=== PATIENT | male | born 1935 | race Caucasian/White ===

== ENCOUNTER 2022-09-11 14:30 | Outpatient (RCR) | payer MEDICARE, OTHER, SELFPAY ==
--- NOTE | 2022-06-12 17:48 | PT.OPEX ---
PT [place] Outpatient Eval PT [facility] Outpatient Eval Start: 06/12/22 13:10 Freq: Status: Active Protocol: Document 06/12/22 13:10 RAFA (Rec: 06/12/22 17:42 [facility] [email or web address]) E-signed By Autumn Reynolds PT Physical Therapy Outpatient Evaluation Insurance Information Insurance Name [employer],Medicare B Insurance Information/Comments [employer] Medical Diagnosis CHRONIC LEFT KNEE PAIN Treating Diagnosis KNEE PAIN UNSTEADY ON FEET GAIT ABNORMALITY FALLS Referring MD LYNN Subjective Subjective I'M NOT SURE WHY I'M HERE BUT MY KNEE MYRON SYED SOME TIMES. PATIENT INITIALLY REPORTS A FALL 6 MONTHS AGO BUT, FURTHER IN THE EVAL, HE REPORTED FALLING LAST WEEK. PATIENT IS A POOR HISTORIAN WITH NOTABLE MEMORY CHALLENGES BOTH IMMEDIATE AND SHORT TERM . Pain Comments 0-06/22 Date of Last Physician Visit 05/18/12 Current Work Status Retired Occupation RETIRED [employer] Preferred Name LEAH Precautions Therapy Limitations/Systems Review Cognition,Hearing Objective Other/Pertinent Objective GAIT/FUNCTIONAL MOBILITY Single leg stance: RIGHT AND LEFT UNABLE Squat: UNABLE D/T BALANCE KNEE ROM Flexion: WFL'S Extension: WFL'S HIP ROM : WFL'S LLE MMT: Hip flexion: L 4-/5 Hip abduction: L 3+ /5 Hip extension: L 4-/5 Knee flexion: L 4/5 Knee extension: L 4/5 SPECIAL TEST Anterior drawer: (-) Shade test: (-) Posterior Drawer: (-) Valgus Test: (-) Varus Test: (-) Joint line tenderness: LEFT MEDIAL>LATERAL Ramón test: (-) hyper flexion test: (-) Thessaly test: (+) Lobato Compression: (+) LIZANDRO test: (+) TX: SEATED HEEL RAISE/TOE RAISE X 15 SEATED KNEE EXT R/L X 10 SEATED MARCHING X 10 SIT TO STAND X 10 Functional Test Performed & Score TUG 19.4 SEC MoCA 1230 TINETTI 8/20 Assessment Assessment/Impression 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 HE IS A POOR HISTORIAN OF HIS OWN MEDICAL HISTORY AND NOTABLE COGNITIVE CHALLENGES WITH BOTH IMMEDIATE AND SHORT TERM MEMORY. PATIENT LIVES IN A TWO STORY HOME ALONE WITH 1 STEP TO ENTER AND ALL HIS NEEDS MET ON MAIN LEVEL. HE REPORTS TO CHILDREN LIVING NEAR TO HELP HIM WELL MEALS ON WHEELS . HE HAS ONE GRAB BAR NEAR HIS TUB SHOWER AND A SHOWER STOOL . HE WOULD BENEFIT FROM A GRAB BAR INSIDE THE SHOWER AND SBA /CGA WHEN STEPPING IN/OUT WELL DURING D/T HIS SIGNIFICANT RISK FOR FALLS WELL COGNITIVE CHALLENGES NOTED TODAY. HE DEMONSTRATES FUNCTIONAL STRENGTH AND ENDURANCE DESPITE HIS REPORTS OF COPD BUT IMMEDIATELY AND VISIBLES TREMBLES WHEN NOT ASSISTED BY HIS FWW. PATIENT REPORTS USING SPC ~6MO AGO BUT A FALL HELPED HIM TRANSITION TO THE FWW. HE DEMONSTRATES A HIGH RISK FOR FALLS EVIDENCED BY 12/10 ON THE TINETTI BALANCE AND MOBILITY TEST, 19.4 ON THE TUG AND COGNITIVE TESTING INDICATING SEVERE IMPAIRMENT SCORING 12/ 30 ON THE MoCA. ADDITONALLY, HE DEMONSTRATES 4/5 MMT BOTH LEFT HIP AND KNEE WITH ROM WFL 'S BOTH HIP AND KNEE. HE REPEATED HIMSELF THROUGHOUT THE SESSION AND REQUIRING SIMPLE, ONE STEP COMMANDS FOR DIRECTIONS. PATIENT WOULD BENEFIT FROM SKILLED PHYSICAL THERAPY TO ADDRESS THE AFORMENTION DEFICITS THROUGH FUNCTIONAL BALANCE TRAINING, GT, STRENGTHENING AND FLEXIBILITY TRAINING. PATIENT WILL UNDOUBTEDLY REQUIRING LONGER DURATION D/T COGNITIVE CHALLENGES AND WOULD MOST CERTAINLY BENEFIT FROM OVERSIGHT OF HIS ADL'S/IADL'S ALIKE D/T HIS EMINENT RISK FOR FALLS AND COGNITIVE DEFICITS . PATIENT VERBALIZED UNDERSTANDING TO ALL SKILLED INSTRUCTION AND IN AGREEMENT WITH POC AND FREQ Primary Functional Limitations TRANSFERS BALANCE BLE STRENGTH COGNITION SAFETY AWARENESS GAIT ABNORMALITY Plan of Care Rehabilitation Potential Good Rehabilitation Potential Comments PATIENT DEMONSTRATES COGNITIVE CHALLENGES AND WILL NEED ADDITIONAL TIME WITH SIMPLE COMMANDS TO BE SUCCESSFUL Physical Therapy Goals ST. PATIENT WILL IMPROVE HIS TUG FROM 19.4 TO 15.4 IN 4 WEEKS 2. PATIENT WILL AMB 1000FT TO ALLOW LIMITED COMMUNITY AMB IN ORDER TO SAFELY GROCERY SHOP AND PARTICPATE IN FAMILY CENTERED EVENTS IN 4 WEEKS 3. PATIENT WILL BE INDPENDENT WITH HEP IN 4WEEKS LT. PATIENT WILL IMPROVE IS TINETTI FROM 12/02 TO 18 IN 8 WEEKS 2. PATIENT WILL DEMONSTRATE AND VERBALIZE GOOD FALL PREVENTION Coordination/Communication With Referral Source Treatment Plan/Direct Interventions Gait Training,Manual Therapy, Therapeutic Activities, Therapeutic Exercises Frequency/Duration 2W8 Patient Will Be Discharged From Therapy Independent w/HEP Discharge Plan Comments PATIENT WILL BE DISCHARGED TO SELF AND CARE OF FAMILY WHEN GOALS MET OR MAX POTENTIAL ACHIEVED. Evaluation Billing Untimed Code Treatment Minutes 30 PT Eval No Charge No Complexity Moderate Certification Information Initial Certification Date 06/12/22 Ending Certification Date 09/04/22 Provider Signature Shows Agreement With POC & Medical Necessity Physician Signature & Date Requested Please Sign/Date Here Physician Comment/Change : Physician NPI Number #
--- NOTE | 2022-09-11 16:28 | PT.OPDNX ---
PT [facility] Out[facility] Daily Note PT [facility] Outpatient Daily Note Start: 06/12/22 13:10 Freq: Status: Active Protocol: Document 09/11/22 15:49 RAFA (Rec: 09/11/22 16:25 RAFA [email or web address]) E-signed By Autumn Reynolds, PT PT OP Daily Progress Note Visit Information Note Type Discharge Note Visit Number [id number] Insurance Information Insurance Name [employer],Medicare B Insurance Information/Comments [employer] Medical Diagnosis CHRONIC LEFT KNEE PAIN Treating Diagnosis KNEE PAIN UNSTEADY ON FEET GAIT ABNORMALITY FALLS Referring MD LYNN Subjective Subjective PATIENT RETURNS TODAY WITH NO NEW COMPLAINTS STATING, I'M A LITTLE STIFF TODAY. HE DENIES ANY SLIPS, TRIPS, OR FALLS. Pain Comments 0/10 Preferred Name LEAH Precautions Treatment Precautions/Contraindications PATIENT HAS UNDIAGNOSED COGNITIVE CHALLENGES PLEASE SPEAK SLOWLY AND ONE STEP COMMANDS. Home Exercise Home Exercise Comments PATIENT ENCOURAGED TO PERFORM DAILY WITH WRITTEN HANDOUT PROVIDED Objective Other/Pertinent Objective GAIT/FUNCTIONAL MOBILITY Single leg stance: RIGHT AND LEFT UNABLE Squat: UNABLE D/T BALANCE KNEE ROM Flexion: WFL'S Extension: WFL'S HIP ROM : WFL'S LLE MMT: Hip flexion: L 4-/5 Hip abduction: L 3+ /5 Hip extension: L 4-/5 Knee flexion: L 4/5 Knee extension: L 4/5 SPECIAL TEST Anterior drawer: (-) Shade test: (-) Posterior Drawer: (-) Valgus Test: (-) Varus Test: (-) Joint line tenderness: LEFT MEDIAL>LATERAL Ramón test: (-) hyper flexion test: (-) Thessaly test: (+) Lobato Compression: (+) LIZANDRO test: (+) Functional Test Performed & Score TUG 19.4 SEC MoCA 12/30 TINETTI 8/20 Patient Instructed in Risks/Benefits Yes Therapeutic Exercise Therapeutic Exercise Minutes (minutes) 30 Therapeutic Exercise: To Restore NUSTEP X 5MIN Functional Status TB ROW (GREEN) X 15 TB S'EXT (GREEN) X 15 STS FROM BENCH X 10 W/UE FROM SURFACE STDG BHR X 15 STDG HIP ABD R/L X 15 STDG MARCHING X 10 Gait & Stair Training Gait Training/Stairs Minutes (minutes) 10 Gait & Stair Training Comments GT WITH LIGHT CGA 200 X 3 WITH 2MIN RECOVERY AFTER EA Neuromuscular Re-Ed Neuromuscular Reeducation Minutes ( 10 minutes) Neuromuscular Reeducation Comments STEP TAP 4 STEP 2 X 10 ALT LEFT/RIGHT TAP HOLDS 3 X 15 SEC STDG STATIC ON FOAM 2MIN Treatment Minutes Timed Code Treatment Minutes 50 Total Treatment Time 50 Billing Units Gait Training/Stairs Units 1 Neuromuscular Reeducation Units 1 Therapeutic Exercise Units 1 Plan of Care Physical Therapy Goals ST. PATIENT WILL IMPROVE HIS TUG FROM 19.4 TO 15.4 IN 4 WEEKS NOT MET 2. PATIENT WILL AMB 1000FT TO ALLOW LIMITED COMMUNITY AMB IN ORDER TO SAFELY GROCERY SHOP AND PARTICIPATE IN FAMILY CENTERED EVENTS IN 4 WEEKS NOT MET 3. PATIENT WILL BE INDEPENDENT WITH HEP IN 4WEEKS; GOAL MET LT. PATIENT WILL IMPROVE IS TINETTI FROM 12/02 TO IN 8 WEEKS NOT MET 2. 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 HE IS A POOR HISTORIAN OF HIS OWN MEDICAL HISTORY AND NOTABLE COGNITIVE CHALLENGES WITH BOTH IMMEDIATE AND SHORT-TERM MEMORY CHALLENGES. PATIENT LIVES IN A TWO-STORY HOME ALONE WITH 1 STEP TO ENTER AND ALL HIS NEEDS MET ON MAIN LEVEL. HE REPORTS DRIVING TO GROCERY STORE, TO CHILDREN'S HOME, AND TO CLINIC REGULARLY. HE HAS PARTICIPATED IN A COMPREHENSIVE PHYSICAL THERAPY PROGRAM TO ADDRESS GT BOTH FOR ENDURANCE AND MECHANICS, STRENGTHENING, AND BALANCE TRAINING. HE IS INDEPENDENT WITH HIS HOME PROGRAM THAT INCLUDES BOTH SEATED AND STANDING BLE STRENGTHENING, SIT TO STAND STRENGTHENING/ BALANCE TRAINING, AND GAIT TRAINING IN HIS HOME FOR 3-5 MIN. HE HAS NOT BEEN ABLE TO AMB OUTSIDE HIS HOME WITH FAMILY AND HAS BEEN INSTRUCTED NOT TO AMB W/O SBA OUTSIDE HOME. WITH HIS COGNITIVE DEFICITS SCORING 12/30 ON THE MoCA AND RISK FOR FALLS SCORING 17.0SEC ON THE TUG AND 10/28 ON THE TINETTI, HE WOULD BE APPROPRIATE FOR An ASSISTED LIVING SR LIVING HOUSING FOR GREATER SUPERVISION AND RISK FOR FALLS . HE HAS COMPLETED HIS PHYSICAL THERAPY WITH AN OVERALL GAIN IN ENDURANCE BUT THIS IS NOT SUSTAINABLE WITH HIS CURRENT DAILY REGIME OF SITTING AT HIS TABLE DOING CROSSWORD PUZZLES AND READING. WE HAVE DISCUSSED HIM BEING MORE ACTIVE DURING THE DAY AT EA VISIT BUT THERE IS NOT MUCH CARRY OVER D/T HIS COGNITIVE DEFICITS. AT THIS TIME, HE HAS REACHED MAX POTENTIAL FOR THE LEVEL OF SUPERVISION BEING PROVIDED AND IS DISCHARGED TODAY FROM [facility]ER[facility] TO CONTINUE WITH HIS INDEPENDENT AND INDIVIDUALIZED HEP. PATIENT VERBALIZED UNDERSTANDING AND IN AGREEMENT WITH DISCHARGE. Date of First Visit for Therapy 06/12/22 Date of Last Visit for Therapy 09/11/22 Initial Pain Level 2-3/10 Pain Level at Discharge 0/10 Interventions Provided During Treatment Gait Training,Neuromuscular Re -Ed,Therapeutic Activities, Therapeutic Exercise Recommendations/Reason for Discharge Progress Reached Plateau Discharge Instructions CONTINUE WITH HEP
== END 2022-11-09 15:17 | disposition home or self-care (01) ==
PROVIDERS: PCP Family Medicine; Visit Provider Surgery
DX: M25.562 Pain in left knee (principal); Z51.89 Encounter for other specified aftercare
CPT/HCPCS: 97110; 97112; 97116; 97162

== ENCOUNTER 2022-09-13 10:50 | Outpatient (RCR) | payer SELFPAY | END 2023-09-13 16:00 | disposition home or self-care (01) | LOC: MOW 10:50 | PROVIDERS: PCP Family Medicine; Visit Provider Family Medicine | DX: Z76.0 Encounter for issue of repeat prescription (principal) | CPT/HCPCS: S5170 ==

== ENCOUNTER 2023-03-03 19:14 | Emergency (ER) | payer MEDICARE, OTHER, SELFPAY ==
[2023-03-03 19:20] VITALS: BP 159/83; PULSE 77; RESP 14; TEMP 36.7; O2SAT 94; BMI 25.8
--- NOTE | 2023-03-03 19:39 | CRLHL7_ITS ---
For Patients: As a result of the Cures Act, medical imaging exams and procedure reports are released immediately into your electronic medical record. You may view this report before your referring provider. If you have questions, please contact your health care provider. Indication: Fall, left hip pain Technique: AP pelvis, AP and frogleg left hip Comparison: 01/06/2019 Findings: There are 3 proximally threaded screws across the left femoral neck. The most inferior screw is backed out away from the femoral cortex in a manner similar to prior. No acute hardware failure or loosening. No fracture. Mild hip osteoarthritis. 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 Stent material partially seen in the lower abdomen. Impression: Postop hips. No acute findings. Dictated by Sandra Hoyt MD @ 03/03/2023 9:14:41 PM (Electronically Signed)
--- NOTE | 2023-03-03 19:39 | CRLHL7_ITS ---
For Patients: As a result of the Century Cures Act, medical imaging exams and procedure reports are released immediately into your electronic medical record. You may view this report before your referring provider. If you have questions, please contact your health care provider. INDICATION: Fall, pain entire ankle, injury TECHNIQUE: Ankle radiograph 3 views left COMPARISON: None FINDINGS: Bone: No acute fractures or aggressive bone lesions are identified. Remote fracture deformity of the distal tibia and fibula are noted with heterotopic bone formation in the syndesmotic ligament. A small plantar calcaneal spur is noted. Joint: The ankle mortise joint and the visualized hindfoot joints are unremarkable in appearance. No significant ankle effusion is seen. Soft tissue: The Kager fat pad and the Achilles` tendon are normal in appearance. No radiopaque foreign bodies are seen. Moderate vascular calcifications are present. IMPRESSION: 1. No acute osseous injuries or abnormalities are noted. Dictated by Juan Carlos Guidry MD @ 03/03/2023 9:13:10 PM Dictated by: Juan Carlos Guidry MD @ 03/03/2023 21:13:12 (Electronically Signed)
--- NOTE | 2023-03-03 19:54 | ED.GENADULT ---
HPI - General Adult General Date Seen: 03/03/23 Chief complaint: Hip Injury/Pain Stated complaint: fell and hit hip Time Seen by Provider: 03/03/23 19:32 Source: patient Mode of arrival: other Limitations: no limitations History of Present Illness HPI narrative: Patient is an 87-year-old here with his daughter for evaluation of fall a little bit ago. He says he was reaching to throw something way and lost his balance. He says he believes he sprained his left ankle and then fell on his lateral left hip. He is walking he says ?gingerly. He uses a walker. He feels the ankles little bit swollen. The ankle and the hip hurt about the same, both feel somewhat worse with weight-bearing. He denies other injuries or complaints. No anticoagulation. Related Data Home Medications Medication Instructions Recorded Confirmed fluticasone furoate 100 1 ea inhalation DAILY 03/03/23 03/03/23 mcg-vilanterol 25 mcg/dose inhalation powder (Breo Ellipta) lisinopril 20 mg tablet 20 mg PO DAILY 03/03/23 03/03/23 metoprolol succinate 25 mg 25 mg PO DAILY 03/03/23 03/03/23 tablet,extended release 24 hr pantoprazole 20 mg tablet,delayed 20 mg PO DAILY 03/03/23 03/03/23 release simvastatin 20 mg tablet 20 mg PO QPM 03/03/23 03/03/23 timolol maleate 0.5 % eye drops drp ophthalmic (eye) 03/03/23 umeclidinium 62.5 mcg/actuation 1 inh inhalation DAILY 03/03/23 03/03/23 blister powder for inhalation (Incruse Ellipta) Allergies Allergy/AdvReac Type Severity Reaction Status Date / Time No Known Drug Allergies Allergy Verified 03/03/23 19:19 Review of Systems Status of ROS: Reports: 6 or more systems reviewed and unremarkable except as noted in History and below PFSH PFS Social History Non-prescribed substance use: denies use Exam Narrative: Exam Narrative: Vital signs reviewed In general, alert, well-appearing elderly male. Looks comfortable. Moves around in the bed without difficulty. Head: Normocephalic, atraumatic. Neck: Nontender to palpation Extremities: There is a little bit of swelling noted and some tenderness in the lateral malleolus of the left ankle. Mild tenderness of the lateral hip but he does have free range of motion which does not seem at all painful. Distal CMS normal. Skin: Warm dry well perfused. Neurologic: He is alert, conversant, moves all extremities equally. Const: Vital Signs, click to edit/add: Vital Signs - 24 hr 03/03/23 19:20 Temperature 98.1 F Pulse Rate [Pulse Oximeter] 77 Respiratory Rate 14 Blood Pressure [Ri ght Upper Arm] 159/83 H Pulse Oximetry 94 Oxygen Delivery Me thod Room Air Course Course ED Course: X-rays of the left ankle and left hip by my review show previous surgery in the left hip, intact hardware, no evidence of pelvic or hip fracture. The left ankle likewise shows no evidence of fracture by my review. Final radiology read for both is negative for any acute findings. I have reviewed all this with the patient and his daughter. Offered stirrup splint but he would prefer to forego that. Ice a few times a day for the next couple of days, Tylenol as needed. Discussed that things should improve over the next few days to week. If the hip is persistently painful, should be reimaged. Vital Signs Vital signs: Initial Vital Signs Temperature 98.1 F 03/03/23 19:20 Temperature Source Temporal Artery Scan 03/03/23 19:20 Pulse Rate 77 03/03/23 19:20 Pulse Rhythm Regular 03/03/23 19:20 Respiratory Rate 14 03/03/23 19:20 Blood Pressure 159/83 H 03/03/23 19:20 Blood Pressure Mean 108 H 03/03/23 19:20 Blood Pressure Position Sitting 03/03/23 19:20 Pulse Oximetry 94 03/03/23 19:20 Oxygen Delivery Method Room Air 03/03/23 19:20 Vital Signs Temperature 98.1 F 03/03/23 19:20 Pulse Rate 77 03/03/23 19:20 Respiratory Rate 14 03/03/23 19:20 Blood Pressure 159/83 H 03/03/23 19:20 Pulse Oximetry 94 03/03/23 19:20 Oxygen Delivery Method Room Air 03/03/23 19:20 Temperature 98.1 F 03/03/23 19:20 Pulse Rate 77 03/03/23 19:20 Respiratory Rate 14 03/03/23 19:20 Blood Pressure 159/83 H 03/03/23 19:20 Pulse Oximetry 94 03/03/23 19:20 Oxygen Delivery Method Room Air 03/03/23 19:20 Discharge Plan Discharge Clinical Impression: Contusion of left hip, Left ankle sprain Patient Disposition: Home, Self-Care Condition: Stable Instructions: Ankle Sprain (ED), Hip Contusion (ED) Additional Instructions: Tylenol 3 times daily as needed, ice a couple times a day to the ankle for the next few days. For persistent pain, should be seen again for re-evaluation. Anticipate gradual improvement over the next few days to week. Return at any time for difficulty with ambulation. Prescriptions: No Action lisinopril 20 mg tablet 20 mg PO DAILY pantoprazole 20 mg tablet,delayed release (DR/EC) 20 mg PO DAILY simvastatin 20 mg tablet 20 mg PO QPM metoprolol succinate 25 mg tablet extended release 24 hr 25 mg PO DAILY timolol maleate 0.5 % drops ophthalmic (eye) fluticasone furoate-vilanterol [Breo Ellipta] 100-25 mcg/dose blister with device 1 ea INHALATION DAILY Incruse Ellipta 62.5 mcg/actuation blister with device 1 inh INHALATION DAILY Follow Up/Referrals: Alex Osorio MD [Primary Care Provider] - Stand Alone Forms: Rent My Items Info Instructions
== END 2023-03-03 21:31 | disposition home or self-care (01) ==
PROVIDERS: Emergency Provider Emergency Medicine; PCP Surgery
DX: S93.402A Sprain of unspecified ligament of left ankle, initial encounter (principal); W18.30XA Fall on same level, unspecified, initial encounter; S70.02XA Contusion of left hip, initial encounter
CPT/HCPCS: 73502; 73610; 99283; 99284

== ENCOUNTER 2023-09-01 08:04 | Emergency (ER) | payer MEDICARE, OTHER, SELFPAY ==
[2023-09-01] VITALS (13 sets, daily range): BP systolic 148–170; BP diastolic 79–101; PULSE 86–120; RESP 18–20; TEMP 36.5; O2SAT 93–98; BMI 25.8
--- NOTE | 2023-09-01 08:26 | ED_ITS ---
HPI - General Adult General Time Seen by Provider: 08:27 Date Seen: 09/01/23 Chief complaint: Hip Injury/Pain Stated complaint: fall, R hip and lower back injury Time Seen by Provider: 09/01/23 08:26 Source: patient, family, RN notes reviewed and old records reviewed Mode of arrival: ambulatory Limitations: no limitations History of Present Illness HPI narrative: 87-year-old male who comes in with back pain and hip pain. Patient is a poor historian due to dementia, however report right hip pain this morning, says he must have fallen when he went to the bathroom overnight but does not actually remember falling or being on the floor. Complains of right hip pain today, most walking. Denies cough, chest pain, shortness of breath, nausea, vomiting, diarrhea, abdominal pain, urinary symptoms. Related Data Home Medications Medication Instructions Recorded Confirmed fluticasone furoate 100 1 ea inhalation DAILY 03/03/23 03/03/23 mcg-vilanterol 25 mcg/dose inhalation powder (Breo Ellipta) lisinopril 20 mg tablet 20 mg PO DAILY 03/03/23 03/03/23 metoprolol succinate 25 mg 25 mg PO DAILY 03/03/23 03/03/23 tablet,extended release 24 hr pantoprazole 20 mg tablet,delayed 20 mg PO DAILY 03/03/23 03/03/23 release simvastatin 20 mg tablet 20 mg PO QPM 03/03/23 03/03/23 timolol maleate 0.5 % eye drops drp ophthalmic (eye) 03/03/23 umeclidinium 62.5 mcg/actuation 1 inh inhalation DAILY 03/03/23 03/03/23 blister powder for inhalation (Incruse Ellipta) Allergies Allergy/AdvReac Type Severity Reaction Status Date / Time No Known Drug Allergies Allergy Verified 09/01/23 08:22 [facility] Social History How often do you have a drink containing alcohol: never AUDIT-C Alcohol total score: 0 Non-prescribed substance use: denies use Exam Narrative: Exam Narrative: General: Well-developed and well-nourished, no acute distress Head: Atraumatic and normocephalic Eyes: Pupils are equal reactive, extraocular motions intact, conjunctiva clear ENT: External nose and ears are normal, posterior pharynx without erythema or exudate Neck: No midline cervical tenderness, full spontaneous range of motion the neck, trachea midline, no adenopathy Heart: Tachycardic but regular, 4/6 systolic murmur Lungs: Clear to auscultation bilaterally without wheezes or crackles Abdomen: Soft, nontender, nondistended with active bowel sounds Musculoskeletal: Right hip and buttock tenderness, no overlying contusion or erythema, no pain with passive movement of the hip Neurologic: Awake, alert, and oriented x3, no gross focal neurologic deficits, cranial nerves intact as tested Psych: Mood and affect are appropriate Skin: No rashes Const: Vital Signs, click to edit/add: Vital Signs - 24 hr 09/01/23 08:20 09/01/23 08:43 09/01/23 08:44 Temperature 97.7 F Pulse Rate Pulse Rate [Right Pulse Oximeter] 120 H Respiratory Rate 18 Blood Pressure Blood Pressure [Ri ght Upper Arm] 165/101 H Pulse Oximetry 93 95 96 Oxygen Delivery Me thod Room Air 09/01/23 08:45 09/01/23 08:50 09/01/23 09:01 Temperature Pulse Rate 108 H Pulse Rate [Right Pulse Oximeter] 98 Respiratory Rate 20 Blood Pressure Blood Pressure [Ri ght Upper Arm] 170/91 H Pulse Oximetry 96 95 93 Oxygen Delivery Me thod 09/01/23 09:21 09/01/23 09:30 09/01/23 09:32 Temperature Pulse Rate 96 92 96 Pulse Rate [Right Pulse Oximeter] Respiratory Rate 18 Blood Pressure 148/79 H Blood Pressure [Ri ght Upper Arm] Pulse Oximetry 94 95 95 Oxygen Delivery Me thod 09/01/23 09:46 09/01/23 10:00 09/01/23 10:02 Temperature Pulse Rate 87 89 Pulse Rate [Right Pulse Oximeter] Respiratory Rate Blood Pressure 150/94 H Blood Pressure [Ri ght Upper Arm] Pulse Oximetry 97 96 98 Oxygen Delivery Me thod 09/01/23 10:15 Temperature Pulse Rate 86 Pulse Rate [Right Pulse Oximeter] Respiratory Rate Blood Pressure Blood Pressure [Ri ght Upper Arm] Pulse Oximetry 97 Oxygen Delivery Me thod Course Course ED Course: Patient seen and examined, reviewed prior emergency department visit from February when he was seen for contusion. Patient presents today with right hip pain, presumes that he fell but does not remember this. On exam, does have a mild tenderness of the right posterior lateral hip and buttock but no pain with passive movement and able to ambulate. Suspect contusion, fractures unlikely. The time of initial exam, patient also has tachycardic with heart rates in the 120s. This is regular. Based on initial history and physical, no etiology for this is found. Patient has not had any vomiting or diarrhea to suggest dehy dration, denies cough or shortness of breath, denies abdominal pain. Labs are ordered along with chest x-ray and urinalysis. Patient does have a slight heart murmur, unsure if this is new or old. Pulmonary embolism is clinically unlikely as patient has no chest pain, shortness of breath but did have a possible syncopal episode. D-dimer will be ordered, consider CT PE study based on results initial testing. Reevaluation(s) Time of Reevaluation #1: 09:30 Reevaluation #1: Chest x-ray and panel interpreted by me does not demonstrate any acute infiltrate or effusion, no cardiomegaly. X-ray of the right hip with total hip arthroplasty, components are well-aligned, no acute fracture. CT scan of the head independently interpreted by me does not demonstrate any acute findings. Labs independently interpreted by me with normal white blood cell count, mildly decreased hemoglobin, negative troponin, normal lactate. Heart rate is improved with fluids. If remaining labs are reassuring, patient can be discharged Time of Reevaluation #2: 09:48 Reevaluation #2: Heart rate improved after fluids, still mild hypoxia. D-dimer is elevated, no prior for comparison, basic panel is reassuring. Patient recheck, no chest pain, no shortness of breath, no hypoxia and heart rate has normalized. Discussed doing CT scan to evaluate for pulmonary embolism verses absence of symptoms of this, the patient and family would like to defer CT PE study. Patient has not yet provided a urine sample, would like to get this prior to discharge. Vital Signs Vital signs: Initial Vital Signs Temperature 97.7 F 09/01/23 08:20 Temperature Source Temporal Artery Scan 09/01/23 08:20 Pulse Rate 120 H 09/01/23 08:20 Respiratory Rate 18 09/01/23 08:20 Blood Pressure 165/101 H 09/01/23 08:20 Blood Pressure Mean 122 H 09/01/23 08:20 Blood Pressure Position Sitting 09/01/23 08:20 Pulse Oximetry 93 09/01/23 08:20 Oxygen Delivery Method Room Air 09/01/23 08:20 Vital Signs Temperature 97.7 F 09/01/23 08:20 Pulse Rate 120 H 09/01/23 08:20 Respiratory Rate 18 09/01/23 08:20 Blood Pressure 165/101 H 09/01/23 08:20 Pulse Oximetry 93 09/01/23 08:20 Oxygen Delivery Method Room Air 09/01/23 08:20 Temperature 97.7 F 09/01/23 08:20 Pulse Rate 86 09/01/23 10:15 Respiratory Rate 18 09/01/23 09:32 Blood Pressure 150/94 H 09/01/23 10:02 Pulse Oximetry 97 09/01/23 10:15 Oxygen Delivery Method Room Air 09/01/23 08:20 Medications Administered Medications: Discontinued Medications Generic Name Dose Route Start Last Admin Trade Name Freq PRN Reason Stop Dose Admin Sodium Chloride 1,000 mls @ 1,000 mls/hr 09/01/23 08:45 09/01/23 10:00 0.9 % Sodium Chloride 1000 Ml IV 09/01/23 09:44 Infused .Q1H [facility] Infusion Medical Decision Making Lab Data Labs: Lab Results 09/01/23 09/01/23 09/01/23 Range/Units 09:00 10:30 Unknown WBC 8.91 (4.50-11.00) K/uL RBC 3.84 L (4.30-5.90) m/uL Hgb 12.8 L (13.5-17.5) gm/dL Hct 37.6 (37.0-53.0) % MCV 98 (80-100) fL MCH 33 (26-34) pg MCHC 34 (32-36) gm/dL RDW Coeff of Bryce 12.1 (11.5-15.5) % Plt Count 197 (140-440) K/uL Neut % (Auto) 77.2 H (42.0-72.0) % Lymph % (Auto) 11.1 L (20-44) % [place] % (Auto) 10.4 (0.0-11.0) % Eos % (Auto) 1.0 (0.0-7.0) % Baso % (Auto) 0.1 (0.0-3.0) % Neut # (Auto) 6.90 (1.7-7.0) K/uL Lymph # (Auto) 1.00 (0.90-2.90) K/uL [place] # (Auto) 0.90 (0.00-0.90) K/UL Eos # (Auto) 0.09 (0.00-0.50) K/uL Baso # (Auto) 0.01 (0.00-0.30) K/uL Abs Immat Gran (auto) 0.02 (0.00-0.30) K/uL Imm/Tot Granulo (auto) 0.2 % D-Dimer Quant (PE/DVT) 1.54 H (0.00-0.50) ug/ml Sodium 134 L (135-149) mmol/L Potassium 3.9 (3.6-5.1) mmol/L Chloride 103 (96-114) mmol/L Carbon Dioxide 24 (20-32) mmol/L Anion Gap 7 (7-15) mEq/L BUN 25 (7-30) mg/dL Creatinine 0.8 (0.5-1.5) mg/dL Estimated Creat Clear 54.75 Estimated GFR 86 ml/min Glucose 139 H (60-115) mg/dL Lactate 1.5 (0.5-1.9) mmol/L Calcium 10.0 (8.4-10.6) mg/dL Magnesium 1.7 (1.5-2.6) mg/dL Urine Color Dark yellow (Yellow) Urine Appearance Slightly Cloudy A (Clear) Urine pH 6.0 (5.0-8.5) Ur Specific [place] 1.025 (1.000-1.030) Urine Protein 1+ A (Negative) Urine Glucose (UA) Negative (Negative) Urine Ketones 2+ A (Negative) Urine Blood Negative (Negative) Urine Nitrite Negative (Negative) Urine Bilirubin 1+ A (Negative) Urine Urobilinogen 1.0 (0.2-1.0) Ur Leukocyte Esterase Negative (Negative) Urine RBC 0-2 (0-2) Urine WBC 0-2 (0-5) Ur Squamous Epith Cells Few (None-Few) Urine Bacteria Few A (None) Urine Mucus Moderate A (None) SARS-CoV-2 (PCR) Negative SARS-CoV-2 (Negative) Influenza Type A (PCR) Negative PCR FLU A (Negative) Influenza Type B (PCR) Negative PCR FLU B (Negative) RSV (PCR) Negative PCR RSV (Negative) POC Troponin I 0.01 (0.01-0.04) ng/ml ECG Data Attestation: I personally reviewed and interpreted this ECG as follows: Prior ECG tracings: not available for review Interpretation: Performed at 8:46 a.m. demonstrates sinus tachycardia rate 104, no acute ischemic changes, normal intervals, normal axis, KS 192, QTC 468. No prior for comparison. Discharge Plan Discharge Clinical Impression: Sinus tachycardia, History of total right hip arthroplasty, Contusion of hip, right Patient Disposition: Home w/ Parent or Adult Condition: Stable Instructions: Hip Contusion (ED), Tachycardia (ED) Additional Instructions: Your x-ray today is negative for hip fracture, pelvic fracture, or dislocation. Tylenol or ibuprofen as needed for pain. Ice the area couple of times a day for 15-20 minutes at a time Your heart rate was fast when you arrived to the emergency department, no abn ormal rhythm was seen on EKG or on the monitor while you were in the department. High heart rate can be seen with infections, dehydration, or with some medications. No definite cause of your fast heart rate was found today although it did get better after getting IV fluids, so you may have been a little dehydrated. Make sure your drinking plenty of fluids today. If you develop a fever, urinary symptoms, chest pain or breathing difficulty, return to the emergency department. Activity Level: Activity as Tolerated Discharge Diet: Regular Prescriptions: No Action lisinopril 20 mg tablet 20 mg PO DAILY pantoprazole 20 mg tablet,delayed release (DR/EC) 20 mg PO DAILY simvastatin 20 mg tablet 20 mg PO QPM metoprolol succinate 25 mg tablet extended release 24 hr 25 mg PO DAILY timolol maleate 0.5 % drops ophthalmic (eye) fluticasone furoate-vilanterol [Breo Ellipta] 100-25 mcg/dose blister with device 1 ea INHALATION DAILY Incruse Ellipta 62.5 mcg/actuation blister with device 1 inh INHALATION DAILY Follow Up/Referrals: Alex Osorio MD [Primary Care Provider] - Stand Alone Forms: [facility] Info Instructions
--- NOTE | 2023-09-01 08:36 | XR_ITS ---
Patient: DELVIS LLANES Facility:?[facility] Patient ID:?[id number] Site Patient ID:?[id number] Site :?[id number] Study:?XRay-Hip Right 2 VIEW AND PELVIS-09/01/2023 9:32:00 AM Ordering Physician:FLORENCIO Final Report: INDICATION: Pain, fall. TECHNIQUE: AP pelvis and 2 views of the right hip. FINDINGS: No pelvic or right hip fracture. Right hip hemiarthroplasty appears intact. SI joints and pubic symphysis are intact. Postop changes noted in the proximal left femur. Abdominal aortic stent graft. No acute findings. Dictated by Moise Huntley MD @ 09/01/2023 10:14:28 AM Signed by:?Moise Huntley MD @09/01/2023 10:14:28 AM (Electronic Signature)
--- NOTE | 2023-09-01 08:37 | XR_ITS ---
Patient: DELVIS LLANES Facility:?[facility] Patient ID:?[id number] Site Patient ID:?[id number] Site :?[id number] Study:?XRay-Chest 2 VIEW-09/01/2023 9:30:12 AM Ordering Physician:FLORENCIO Final Report: INDICATION: Tachycardia. Technique: AP and lateral chest. FINDINGS: Lungs are clear. Normal heart size and pulmonary vascularity. No pleural effusion or pneumothorax. IMPRESSION: No acute chest findings. Dictated by Moise Huntley MD @ 09/01/2023 10:13:06 AM Signed by:?Moise Huntley MD @09/01/2023 10:13:06 AM (Electronic Signature)
--- NOTE | 2023-09-01 08:38 | CT_ITS ---
Patient: DELVIS LLANES Facility:?[facility] Patient ID:?[id number] Site Patient ID:?[id number] Site :?[id number] Study:?CT-Head WITHOUT-09/01/2023 9:32:59 AM Ordering Physician:FLORENCIO Final Report: INDICATION: Fall. TECHNIQUE: CT of the head without contrast. Coronal and sagittal reformats are included. COMPARISON: None. FINDINGS: No acute intracranial hemorrhage. No mass effect or midline shift. No hydrocephalus or extra-axial collections. Patchy white matter hypoattenuation, typical for chronic microvascular ischemic change. Moderate generalized parenchymal volume loss. Intracranial vascular calcifications. No acute osseous abnormalities. Mastoid air cells and paranasal sinuses are clear. Right parietal scalp hematoma. IMPRESSION: IMPRESSION: 1. No acute intracranial abnormalities. Please note that all CT scans at this facility use dose modulation, iterative reconstruction, and/or weight-based dosing when appropriate to reduce radiation dose to as low as reasonably achievable. Dictated by Roberto Euceda MD @ 09/01/2023 10:20:01 AM Signed by:?Roberto Euceda MD @09/01/2023 10:20:01 AM (Electronic Signature)
[2023-09-01] MEDS: 0.9 % SODIUM CHLORIDE 1000 ml 1,000 ML IV (09:00)
[2023-09-01 09:13] LABS: Lactate* 1.5 mmol/L (0.5-1.9)
[2023-09-01 09:14] LABS: Basophils Absolute Auto 0.01 K/uL (0.00-0.30); Basophils Percent Auto 0.1 % (0.0-3.0); Eosinophils Absolute Auto 0.09 K/uL (0.00-0.50); Hematocrit 37.6 % (37.0-53.0); Hemoglobin* 12.8 gm/dL (13.5-17.5); Immature Granulocytes Abs Auto 0.02 K/uL (0.00-0.30); Immature Granulocytes Pct Auto 0.2 %; Lymphocytes Percent Auto 11.1 % (20-44); Mean Corpuscular HGB Conc 34 gm/dL (32-36); Mean Corpuscular Hemoglobin 33 pg (26-34); Mean Corpuscular Volume 98 fL (80-100); Monocytes Percent Auto 10.4 % (0.0-11.0); Neutrophils Percent Auto 77.2 % (42.0-72.0); Platelet Count* 197 K/uL (140-440); RDW Coefficient of Variation % 12.1 % (11.5-15.5); Red Blood Count 3.84 m/uL (4.30-5.90); White Blood Count* 8.91 K/uL (4.50-11.00)
[2023-09-01 09:20] LABS: Troponin, Point-of-Care* 0.01 ng/ml (0.01-0.04)
[2023-09-01 09:28] LABS: Chloride* 103 mmol/L (96-114)
[2023-09-01 09:29] LABS: Potassium* 3.9 mmol/L (3.6-5.1); Slide Review Reflex No; Sodium* 134 mmol/L (135-149)
[2023-09-01 09:31] LABS: Creatinine* 0.8 mg/dL (0.5-1.5); Est. Creatinine Clearance* 54.75; Estimated Glomerular Filt Rate 86 ml/min
[2023-09-01 09:32] LABS: Anion Gap 7 mEq/L (7-15); Blood Urea Nitrogen* 25 mg/dL (7-30); Carbon Dioxide* 24 mmol/L (20-32); Glucose* 139 mg/dL (60-115); Magnesium* 1.7 mg/dL (1.5-2.6)
[2023-09-01 09:34] LABS: D Dimer Quantitative* 1.54 ug/ml (0.00-0.50)
[2023-09-01 10:12] LABS: PCR FLU A Negative PCR FLU A (Negative); PCR FLU B Negative PCR FLU B (Negative); PCR RSV Negative PCR RSV (Negative); SARS PCR* Negative SARS-CoV-2 (Negative)
[2023-09-01 10:36] LABS: Appearance Urine Slightly Cloudy (Clear); Bilirubin Urine 1+ (Negative); Blood Urine Negative (Negative); Color Urine Dark yellow (Yellow); Glucose Urine Negative (Negative); Ketones Urine 2+ (Negative); Leukocyte Esterase Urine Negative (Negative); Nitrite Urine Negative (Negative); Protein Urine 1+ (Negative); Specific Gravity Urine 1.025 (1.000-1.030)
[2023-09-01 10:46] LABS: Bacteria Urine Few; Mucus Urine Moderate; RBC Urine 0-2 (0-2); Squamous Epithelial Cell Urine Few (None-Few); WBC Urine 0-2 (0-5)
--- NOTE | 2023-09-02 21:10 | ED.GENADULT ---
HPI - General Adult General Date Seen: 09/01/23 Chief complaint: Hip Injury/Pain Stated complaint: fall, R hip and lower back injury Time Seen by Provider: 09/01/23 08:26 Source: patient, family, RN notes reviewed and old records reviewed Mode of arrival: ambulatory Limitations: no limitations History of Present Illness HPI narrative: This is an addendum to Dr. Walton is ER note from 09/01/2023. The patient has 1/2 blood cultures coming back positive today. It is positive for gram positive cocci in clusters. The other blood culture has no growth. I contacted the patient at home at about 9:00 p.m.. He says he is feeling fine today. He has had an active vigorous day. He is just finishing his after dinner fruit desert. No fever or chills. No weakness. No symptoms of illness. Discussed with the patient that this blood culture is most likely a contaminant. However with the potential seriousness of bacteremia in the risk for sepsis, I advised him to come back to the ER for re-evaluation so we can double check his vital signs and double check his white count. He says he will come in. Related Data Home Medications Medication Instructions Recorded Confirmed fluticasone furoate 100 1 ea inhalation DAILY 03/03/23 03/03/23 mcg-vilanterol 25 mcg/dose inhalation powder (Breo Ellipta) lisinopril 20 mg tablet 20 mg PO DAILY 03/03/23 03/03/23 metoprolol succinate 25 mg 25 mg PO DAILY 03/03/23 03/03/23 tablet,extended release 24 hr pantoprazole 20 mg tablet,delayed 20 mg PO DAILY 03/03/23 03/03/23 release simvastatin 20 mg tablet 20 mg PO QPM 03/03/23 03/03/23 timolol maleate 0.5 % eye drops drp ophthalmic (eye) 03/03/23 umeclidinium 62.5 mcg/actuation 1 inh inhalation DAILY 03/03/23 03/03/23 blister powder for inhalation (Incruse Ellipta) Allergies Allergy/AdvReac Type Severity Reaction Status Date / Time No Known Drug Allergies [facility]01[facility]23 08:[facility] Social History How often do you have a drink containing alcohol: never AUDIT-C Alcohol total score: 0 Non-prescribed substance use: denies use Course Vital Signs Vital signs: Initial Vital Signs Temperature 97.7 F 09/01/23 08:20 Temperature Source Temporal Artery Scan 09/01/23 08:20 Pulse Rate 120 H 09/01/23 08:20 Respiratory Rate 18 09/01/23 08:20 Blood Pressure 165/101 H 09/01/23 08:20 Blood Pressure Mean 122 H 09/01/23 08:20 Blood Pressure Position Sitting 09/01/23 08:20 Pulse Oximetry 93 09/01/23 08:20 Oxygen Delivery Method Room Air 09/01/23 08:20 Vital Signs Temperature 97.7 F 09/01/23 08:20 Pulse Rate 120 H 09/01/23 08:20 Respiratory Rate 18 09/01/23 08:20 Blood Pressure 165/101 H 09/01/23 08:20 Pulse Oximetry 93 09/01/23 08:20 Oxygen Delivery Method Room Air 09/01/23 08:20 Temperature 97.7 F 09/01/23 08:20 Pulse Rate 86 09/01/23 10:15 Respiratory Rate 18 09/01/23 09:32 Blood Pressure 150/94 H 09/01/23 10:02 Pulse Oximetry 97 09/01/23 10:15 Oxygen Delivery Method Room Air 09/01/23 08:20 Medications Administered Medications: Discontinued Medications Generic Name Dose Route Start Last Admin Trade Name Freq PRN Reason Stop Dose Admin Sodium Chloride 1,000 mls @ 1,000 mls/hr 09/01/23 08:45 09/01/23 10:00 0.9 % Sodium Chloride 1000 Ml IV 09/01/23 09:44 Infused .Q1H [facility] Infusion Medical Decision Making Lab Data Labs: Lab Results 09/01/23 09/01/23 09/01/23 Range/Units 09:00 10:30 Unknown WBC 8.91 (4.50-11.00) K/uL RBC 3.84 L (4.30-5.90) m/uL Hgb 12.8 L (13.5-17.5) gm/dL Hct 37.6 (37.0-53.0) % MCV 98 (80-100) fL MCH 33 (26-34) pg MCHC 34 (32-36) gm/dL RDW Coeff of Bryce 12.1 (11.5-15.5) % Plt Count 197 (140-440) K/uL Neut % (Auto) 77.2 H (42.0-72.0) % Lymph % (Auto) 11.1 L (20-44) % [place] % (Auto) 10.4 (0.0-11.0) % Eos % (Auto) 1.0 (0.0-7.0) % Baso % (Auto) 0.1 (0.0-3.0) % Neut # (Auto) 6.90 (1.7-7.0) K/uL Lymph # (Auto) 1.00 (0.90-2.90) K/uL [place] # (Auto) 0.90 (0.00-0.90) K/UL Eos # (Auto) 0.09 (0.00-0.50) K/uL Baso # (Auto) 0.01 (0.00-0.30) K/uL Abs Immat Gran (auto) 0.02 (0.00-0.30) K/uL Imm/Tot Granulo (auto) 0.2 % D-Dimer Quant (PE/DVT) 1.54 H (0.00-0.50) ug/ml Sodium 134 L (135-149) mmol/L Potassium 3.9 (3.6-5.1) mmol/L Chloride 103 (96-114) mmol/L Carbon Dioxide 24 (20-32) mmol/L Anion Gap 7 (7-15) mEq/L BUN 25 (7-30) mg/dL Creatinine 0.8 (0.5-1.5) mg/dL Estimated Creat Clear 54.75 Estimated GFR 86 ml/min Glucose 139 H (60-115) mg/dL Lactate 1.5 (0.5-1.9) mmol/L Calcium 10.0 (8.4-10.6) mg/dL Magnesium 1.7 (1.5-2.6) mg/dL Urine Color Dark yellow (Yellow) Urine Appearance Slightly Cloudy A (Clear) Urine pH 6.0 (5.0-8.5) Ur Specific [place] 1.025 (1.000-1.030) Urine Protein 1+ A (Negative) Urine Glucose (UA) Negative (Negative) Urine Ketones 2+ A (Negative) Urine Blood Negative (Negative) Urine Nitrite Negative (Negative) Urine Bilirubin 1+ A (Negative) Urine Urobilinogen 1.0 (0.2-1.0) Ur Leukocyte Esterase Negative (Negative) Urine RBC 0-2 (0-2) Urine WBC 0-2 (0-5) Ur Squamous Epith Cells Few (None-Few) Urine Bacteria Few A (None) Urine Mucus Moderate A (None) SARS-CoV-2 (PCR) Negative SARS-CoV-2 (Negative) Influenza Type A (PCR) Negative PCR FLU A (Negative) Influenza Type B (PCR) Negative PCR FLU B (Negative) RSV (PCR) Negative PCR RSV (Negative) POC Troponin I 0.01 (0.01-0.04) ng/ml Discharge Plan Discharge Clinical Impression: Sinus tachycardia, History of total right hip arthroplasty, Contusion of hip, right Patient Disposition: Home w/ Parent or Adult Condition: Stable Instructions: Hip Contusion (ED), Tachycardia (ED) Additional Instructions: Your x-ray today is negative for hip fracture, pelvic fracture, or dislocation. Tylenol or ibuprofen as needed for pain. Ice the area couple of times a day for 15-20 minutes at a time Your heart rate was fast when you arrived to the emergency department, no abnormal rhythm was seen on EKG or on the monitor while you were in the department. High heart rate can be seen with infections, dehydration, or with some medications. No definite cause of your fast heart rate was found today although it did get better after getting IV fluids, so you may have been a little dehydrated. Make sure your drinking plenty of fluids today. If you develop a fever, urinary symptoms, chest pain or breathing difficulty, return to the emergency department. Activity Level: Activity as Tolerated Discharge Diet: Regular Prescriptions: No Action lisinopril 20 mg tablet 20 mg PO DAILY pantoprazole 20 mg tablet,delayed release (DR/EC) 20 mg PO DAILY simvastatin 20 mg tablet 20 mg PO QPM metoprolol succinate 25 mg tablet extended release 24 hr 25 mg PO DAILY timolol maleate 0.5 % drops ophthalmic (eye) fluticasone furoate-vilanterol [Breo Ellipta] 100-25 mcg/dose blister with device 1 ea INHALATION DAILY Incruse Ellipta 62.5 mcg/actuation blister with device 1 inh INHALATION DAILY Follow Up/Referrals: Alex Osorio MD [Primary Care Provider] - Stand Alone Forms: [facility] Info Instructions
== END 2023-09-01 10:41 | disposition home or self-care (01) ==
PROVIDERS: Emergency Provider Family Medicine; PCP Surgery
DX: S70.01XA Contusion of right hip, initial encounter (principal); R00.0 Tachycardia, unspecified
CPT/HCPCS: 36415; 70450; 71046; 73502; 80048; 81001; 83605; 83735; 84484; 85025; 85379; 87040; 87086; 87186; 87631; 93005; 99281; 99284; 99285; J7030

== ENCOUNTER 2023-09-02 21:31 | Emergency (ER) | payer MEDICARE, OTHER, SELFPAY ==
[2023-09-02 22:16] VITALS: BP 158/74; PULSE 88; RESP 16; TEMP 36.8; O2SAT 96
[2023-09-02 22:33] LABS: Basophils Absolute Auto 0.03 K/uL (0.00-0.30); Basophils Percent Auto 0.4 % (0.0-3.0); Eosinophils Absolute Auto 0.12 K/uL (0.00-0.50); Eosinophils Percent Auto 1.7 % (0.0-7.0); Hematocrit 36.2 % (37.0-53.0); Hemoglobin* 12.2 gm/dL (13.5-17.5); Immature Granulocytes Abs Auto 0.01 K/uL (0.00-0.30); Immature Granulocytes Pct Auto 0.1 %; Lymphocytes Absolute Auto 1.56 K/uL (0.90-2.90); Lymphocytes Percent Auto 22.5 % (20-44); Mean Corpuscular HGB Conc 34 gm/dL (32-36); Mean Corpuscular Hemoglobin 33 pg (26-34); Mean Corpuscular Volume 99 fL (80-100); Monocytes Percent Auto 11.4 % (0.0-11.0); Neutrophils Absolute Auto 4.42 K/uL (1.7-7.0); Neutrophils Percent Auto 63.9 % (42.0-72.0); Platelet Count* 212 K/uL (140-440); RDW Coefficient of Variation % 12.3 % (11.5-15.5); Red Blood Count 3.65 m/uL (4.30-5.90); White Blood Count* 6.93 K/uL (4.50-11.00)
[2023-09-02 22:36] LABS: Slide Review Reflex No
[2023-09-02 22:52] LABS: C Reactive Protein* 6.4 mg/dL (0.5-1.0)
--- NOTE | 2023-09-02 23:29 | ED_ITS ---
HPI - General Adult General Date Seen: 09/02/23 Chief complaint: Unspecified Complaint, Adult Stated complaint: blood work Time Seen by Provider: 09/02/23 22:20 History of Present Illness HPI narrative: This is a very pleasant 88-year-old gentleman who lives independently at home who came to the ER at today after I called him for an abnormal blood culture result. He had been seen in the ER on the overnight shift yesterday on 08/31. As part is workup in the ER he had 2 blood cultures drawn. One of them has no growth so far. One of them grew g positive cocci in clusters. Other workup in the ER yesterday included urinalysis which was normal, COVID, influenza, RSV PCR which was negative. INR was 1.. Sodium was 134, potassium 3.9, BUN 25, creatinine 0.8, glucose 139. He had an elevated heart rate yesterday, prompting further workup. Heart rate improved after IV fluids. He was discharged home. He says that today at home he has been doing quite well. He has had an active vigorous day. He has had no symptoms. No dizziness. No shortness of breath. No cough. No fever chills. No weakness. No body aches. He ate dinner at 6:00 p.m. is usually did and then had a late [place] of fruit at about 9:00 p.m.. He is feeling fine today. He was repairing to do his normal evening activities and go to bed about 11:00 p.m., as he usually does. I called him with this positive blood culture and he came to the ER to be rechecked. Related Data Home Medications Medication Instructions Recorded Confirmed fluticasone furoate 100 1 ea inhalation DAILY 03/03/23 03/03/23 mcg-vilanterol 25 mcg/dose inhalation powder (Breo Ellipta) lisinopril 20 mg tablet 20 mg PO DAILY 03/03/23 03/03/23 metoprolol succinate 25 mg 25 mg PO DAILY 03/03/23 03/03/23 tablet,extended release 24 hr pantoprazole 20 mg tablet,delayed 20 mg PO DAILY 03/03/23 03/03/23 release simvastatin 20 mg tablet 20 mg PO QPM 03/03/23 03/03/23 timolol maleate 0.5 % eye drops drp ophthalmic (eye) 03/03/23 umeclidinium 62.5 mcg/actuation 1 inh inhalation DAILY 03/03/23 03/03/23 blister powder for inhalation (Incruse Ellipta) Allergies Allergy/AdvReac Type Severity Reaction Status Date / Time No Known Drug Allergies Allergy Verified 09/01/23 08:22 [facility] Social History How often do you have a drink containing alcohol: never AUDIT-C Alcohol total score: 0 Non-prescribed substance use: denies use Exam Narrative: Exam Narrative: Constitutional: Appears well-developed and well-nourished. Alert. Conversant. Non toxic. Ambulatory in the hallway with his walker. HENT: Head: Atraumatic. Nose: Nose normal. Mouth/Throat: Oral mucosa is clear and moist. no trismus. Pharynx normal. Tonsils symmetric. No tonsillar enlargement, erythema, or exudate. Eyes: Conjunctivae normal. EOM normal. Pupils equal, round, and reactive to light. No scleral icterus. Neck: Normal range of motion. Neck supple. No tracheal deviation present. Cardiovascular: Normal rate, regular rhythm. No gallop. No friction rub. Systolic murmur heard. Symmetric radial artery pulses Pulmonary/Chest: Effort normal. No stridor. No respiratory distress. No wheezes. No rales. No rhonchi . No tenderness. Abdominal: Soft. No distension. No mass. No tenderness. No rebound. No guarding. Musculoskeletal: RUE: Normal range of motion. No tenderness. No deformity LUE: Normal range of motion. No tenderness. No deformity RLE: Normal range of motion. No edema. No tenderness. No deformity LLE: Normal range of motion. No edema. No tenderness. No deformity Lymph: No cervical adenopathy. Neurological: Alert and oriented to person, place, and time. Normal strength. CN II-VII intact. No sensory deficit. GCS eye subscore is 4. GCS verbal subscore is 5. GCS motor subscore is 6. Normal coordination Skin: Skin is warm and dry. No rash noted. No pallor. Normal capillary refill. Psychiatric: Normal mood. Normal affect. Very polite Const: Vital Signs, click to edit/add: Vital Signs - 24 hr 09/02/23 22:16 Temperature 98.2 F Pulse Rate [Left P ulse Oximeter] 88 Respiratory Rate 16 Blood Pressure [Ri ght Upper Arm] 158/74 H Pulse Oximetry 96 Oxygen Delivery Me thod Room Air Course Vital Signs Vital signs: Initial Vital Signs Temperature 98.2 F 09/02/23 22:16 Temperature Source Temporal Artery Scan 09/02/23 22:16 Pulse Rate 88 09/02/23 22:16 Respiratory Rate 16 09/02/23 22:16 Blood Pressure 158/74 H 09/02/23 22:16 Blood Pressure Mean 102 09/02/23 22:16 Blood Pressure Position Sitting 09/02/23 22:16 Pulse Oximetry 96 09/02/23 22:16 Oxygen Delivery Method Room Air 09/02/23 22:16 Vital Signs Temperature 98.2 F 09/02/23 22:16 Pulse Rate 88 09/02/23 22:16 Respiratory Rate 16 09/02/23 22:16 Blood Pressure 158/74 H 09/02/23 22:16 Pulse Oximetry 96 09/02/23 22:16 Oxygen Delivery Method Room Air 09/02/23 22:16 Temperature 98.2 F 09/02/23 22:16 Pulse Rate 88 09/02/23 22:16 Respiratory Rate 16 09/02/23 22:16 Blood Pressure 158/74 H 09/02/23 22:16 Pulse Oximetry 96 09/02/23 22:16 Oxygen Delivery Method Room Air 09/02/23 22:16 Medical Decision Making MDM Narrative Medical decision making narrative: Very pleasant 88-year-old gentleman who I called to come back to the ER [facility] for recheck. He was seen yesterday and had blood cultures as part of his workup. One out of his 2 cultures came back positive for Gram-positive cocci. No further identification or sensitivities yet. Since discharge he says he has been feeling fine with no fever, trouble breathing, weakness or other symptoms. Laboratory workup here shows normal white blood cell count. Mildly elevated CRP. He is hemodynamically stable, has a normal heart rate and oxygen level. He is afebrile. He is clinically robust and well-appearing. He does have a systolic murmur which was noted on exam yesterday and on exam again today. Unclear if this is new or old. He does not recall if he has had before or not. At this point no clear evidence to suggest that this is acute bacterial endocarditis. No other stigmata of endocarditis. Options here would be to admit for observation IV antibiotics pending the results of his repeat blood cultures from today. However he is so well- appearing I do not think hospitalization is warranted. Furthermore the patient is eager to get discharged home. Therefore we will discharge. I carefully reviewed return precautions with the patient. He understands our concern that if this bacteremia is true it could lead to a very serious illness. He will also follow-up with primary care provider within 1 week to arrange outpatient echocardiogram (if not already done) Lab Data Labs: Lab Results 09/02/23 Range/Units 22:30 WBC 6.93 (4.50-11.00) K/uL RBC 3.65 L (4.30-5.90) m/uL Hgb 12.2 L (13.5-17.5) gm/dL Hct 36.2 L (37.0-53.0) % MCV 99 (80-100) fL MCH 33 (26-34) pg MCHC 34 (32-36) gm/dL RDW Coeff of Bryce 12.3 (11.5-15.5) % Plt Count 212 (140-440) K/uL Neut % (Auto) 63.9 (42.0-72.0) % Lymph % (Auto) 22.5 (20-44) % [place] % (Auto) 11.4 H (0.0-11.0) % Eos % (Auto) 1.7 (0.0-7.0) % Baso % (Auto) 0.4 (0.0-3.0) % Neut # (Auto) 4.42 (1.7-7.0) K/uL Lymph # (Auto) 1.56 (0.90-2.90) K/uL [place] # (Auto) 0.80 (0.00-0.90) K/UL Eos # (Auto) 0.12 (0.00-0.50) K/uL Baso # (Auto) 0.03 (0.00-0.30) K/uL Abs Immat Gran (auto) 0.01 (0.00-0.30) K/uL Imm/Tot Granulo (auto) 0.1 % C-Reactive Protein 6.4 H (0.5-1.0) mg/dL Discharge Plan Discharge Clinical Impression: Blood bacterial culture positive Patient Disposition: Home, Self-Care Condition: Stable Additional Instructions: As we discussed, please come back to the ER right away if you have any problems especially fever or chills, weakness or fatigue, body aches, or any feeling of being unwell. At this point we suspect that your positive blood culture from yesterday is probably a laboratory error. The ER will contact you if you have any further abnormal blood test results or positive blood cultures. You do have a heart murmur. Please follow-up with your regular doctor within 1 week for a recheck. Your doctor may want to arrange an echocardiogram for your heart. Prescriptions: No Action lisinopril 20 mg tablet 20 mg PO DAILY pantoprazole 20 mg tablet,delayed release (DR/EC) 20 mg PO DAILY simvastatin 20 mg tablet 20 mg PO QPM metoprolol succinate 25 mg tablet extended release 24 hr 25 mg PO DAILY timolol maleate 0.5 % drops ophthalmic (eye) fluticasone furoate-vilanterol [Breo Ellipta] 100-25 mcg/dose blister with device 1 ea INHALATION DAILY Incruse Ellipta 62.5 mcg/actuation blister with device 1 inh INHALATION DAILY Follow Up/Referrals: Alex Osorio MD [Primary Care Provider] - Stand Alone Forms: [employer] Info Instructions
--- NOTE | 2023-09-04 08:54 | ED.NURSE ---
Explained second visit to patient's daughter as patient does has significant confusion and she was wondering what follow up visit was regarding.
== END 2023-09-02 23:47 | disposition home or self-care (01) ==
PROVIDERS: Emergency Provider Emergency Medicine; PCP Surgery
DX: R79.9 Abnormal finding of blood chemistry, unspecified (principal)
CPT/HCPCS: 36415; 85025; 86140; 87040; 99282; 99283

== ENCOUNTER 2023-09-17 12:59 | Outpatient (RCR) | payer SELFPAY | END 2024-09-13 10:18 | disposition home or self-care (01) | LOC: MOW 12:59 | PROVIDERS: PCP Surgery; Visit Provider Family Medicine | DX: Z76.0 Encounter for issue of repeat prescription (principal) | CPT/HCPCS: S5170 ==

== ENCOUNTER 2024-01-06 10:07 | Emergency (ER) | payer MEDICARE, OTHER, SELFPAY ==
[2024-01-06 10:11] VITALS: BP 177/90; PULSE 82; RESP 18; TEMP 36.6; O2SAT 97; BMI 28.2
--- NOTE | 2024-01-06 10:37 | ED_ITS ---
HPI - Male Genitourinary General Chief complaint: Urogenital Problems, Male Stated complaint: Trouble Urinating Time Seen by Provider: 01/06/24 10:10 History of Present Illness HPI Narrative: This 88-year-old male comes in stating that he has not been able to produce any urine since yesterday. He does not describe any abdominal pain or distension. He states that this happened once in the past where he needed a Mccrary catheter inserted. He arrives here with normal vital signs except his blood pressure is somewhat elevated. Related Data Home Medications ?Medication ?Instructions ?Recorded ?Confirmed fluticasone furoate 100 1 ea inhalation DAILY 03/03/23 01/06/24 mcg-vilanterol 25 mcg/dose inhalation powder (Breo Ellipta) lisinopril 20 mg tablet 20 mg PO DAILY 03/03/23 01/06/24 metoprolol succinate 25 mg 25 mg PO DAILY 03/03/23 01/06/24 tablet,extended release 24 hr pantoprazole 20 mg tablet,delayed 20 mg PO DAILY 03/03/23 03/03/23 release simvastatin 20 mg tablet 20 mg PO QPM 03/03/23 01/06/24 timolol maleate 0.5 % eye drops 1 drp ophthalmic (eye) Q12H 03/03/23 umeclidinium 62.5 mcg/actuation 1 inh inhalation DAILY 03/03/23 01/06/24 blister powder for inhalation (Incruse Ellipta) albuterol sulfate 90 mcg/actuation 1 - 2 puff inhalation Q4H PRN 01/06/24 01/06/24 aerosol inhaler dyspnea amlodipine 2.5 mg tablet 2.5 mg PO DAILY 01/06/24 01/06/24 atorvastatin 10 mg tablet 10 mg PO DAILY 01/06/24 01/06/24 Allergies Allergy/AdvReac Type Severity Reaction Status Date / Time No Known Drug Allergies Allergy Verified 01/06/24 10:16 Review of Systems Status of ROS: Reports: 10 or more systems reviewed and unremarkable except as noted in History and below Narrative: Constitutional: No fevers, no weight gain or loss. Eyes: No discharge. No vision changes. HENT: No congestion, no sore throat, no ear pain. Cardiovascular: No chest pain, no palpitations. Respiratory: No shortness of breath, no wheezes, no cough. Gastrointestinal: No abdominal pain, no vomiting, no diarrhea. Genitourinary: No hematuria. No urine output since yesterday. Musculoskeletal: Normal range of motion. Skin: No rashes, no pruritis. Neurological: No dizziness, weakness, sensory change, speech change. Endo/Heme/Allergies: No bruising or bleeding. No polydipsia. Pysch: no suicidality, no anxiety, no insomnia. All other systems reviewed and are negative. [facility] Social History How often do you have a drink containing alcohol: never AUDIT-C Alcohol total score: 0 Non-prescribed substance use: denies use Exam Narrative: Exam Narrative: Constitutional: Well-developed, well-nourished, no acute distress. HEENT: Normocephalic, atraumatic. Neck: Normal range of motion. Nontender. Supple. Heart: Regular. No murmurs. Normal rate. Intact distal pulses. Lungs: Clear to auscultation. No chest discomfort. No wheezes, rhonchi, or rales. Abdomen: Normal bowel sounds. Nontender. No rebound tenderness. Genitalia: Deferred. Back: No midline tenderness. Normal range of motion. Extremities: Normal range of motion. No injury. Skin: Intact. No rash. Warm. No erythema or pallor. Neurologic: No altered sensation. No weakness. Alert and oriented. Psychiatric: No suicidality. No anxiety or depression. No insomnia. Nursing notes and vitals signs are reviewed. Const: Vital Signs, click to edit/add: Vital Signs - 24 hr 01/06/24 10:11 Temperature 97.8 F Pulse Rate [Pulse Oximeter] 82 Respiratory Rate 18 Blood Pressure [Ri ght Upper Arm] 177/90 H Pulse Oximetry 97 Oxygen Delivery Me thod Room Air Course Vital Signs Vital signs: Initial Vital Signs Temperature 97.8 F 01/06/24 10:11 Temperature Source Temporal Artery Scan 01/06/24 10:11 Pulse Rate 82 01/06/24 10:11 Respiratory Rate 18 01/06/24 10:11 Blood Pressure 177/90 H 01/06/24 10:11 Blood Pressure Mean 119 H 01/06/24 10:11 Blood Pressure Position Sitting 01/06/24 10:11 Pulse Oximetry 97 01/06/24 10:11 Oxygen Delivery Method Room Air 01/06/24 10:11 Vital Signs Temperature 97.8 F 01/06/24 10:11 Pulse Rate 82 01/06/24 10:11 Respiratory Rate 18 01/06/24 10:11 Blood Pressure 177/90 H 01/06/24 10:11 Pulse Oximetry 97 01/06/24 10:11 Oxygen Delivery Method Room Air 01/06/24 10:11 Temperature 97.8 F 01/06/24 10:11 Pulse Rate 82 01/06/24 10:11 Respiratory Rate 18 01/06/24 10:11 Blood Pressure 177/90 H 01/06/24 10:11 Pulse Oximetry 97 01/06/24 10:11 Oxygen Delivery Method Room Air 01/06/24 10:11 MDM - Male Genitourinary MDM Narrative Medical decision making narrative: This patient comes in stating that he has not been able to void urine since yesterday. A bladder scan showed around 100 mL of urine. The patient is otherwise not in any acute distress. He does not report any fevers or abdominal pain. He states that he had symptoms like this once before. Mccrary catheter was placed and he will that about 300 mL of urine. Urinalysis showed some microscopic hematuria but no sign of infection. The patient's creatinine is in normal range. He is okay to be discharged home and instructions were given for management of a Mccrary catheter. He is also instructed to return in about 3 days for removal of the catheter. Lab Data Labs: Lab Results 01/06/24 01/06/24 Range/Units 10:35 11:14 Urine Color Yellow (Yellow) Urine Appearance Slightly Cloudy A (Clear) Urine pH 6.0 (5.0-8.5) Ur Specific [place] 1.020 (1.000-1.030) Urine Protein Negative (Negative) Urine Glucose (UA) Negative (Negative) Urine Ketones Negative (Negative) Urine Blood 2+ A (Negative) Urine Nitrite Negative (Negative) Urine Bilirubin Negative (Negative) Urine Urobilinogen 0.2 (0.2-1.0) Ur Leukocyte Esterase Negative (Negative) Urine RBC 10-25 A (0-2) Urine WBC 2-5 (0-5) Ur Squamous Epith Cells Few (None-Few) Urine Bacteria None (None) POC Creatinine 0.9 (0.6-1.3) mg/dl Discharge Plan Discharge Clinical Impression: Acute urinary retention Patient Disposition: Home, Self-Care Condition: Improved Additional Instructions: Keep Mccrary catheter in place and return to clinic, urgent care, or emergency department in about 3 days for catheter removal and re-evaluation. Prescriptions: No Action lisinopril 20 mg tablet 20 mg PO DAILY pantoprazole 20 mg tablet,delayed release (DR/EC) 20 mg PO DAILY simvastatin 20 mg tablet 20 mg PO QPM metoprolol succinate 25 mg tablet extended release 24 hr 25 mg PO DAILY timolol maleate 0.5 % drops 1 drp ophthalmic (eye) Q12H fluticasone furoate-vilanterol [Breo Ellipta] 100-25 mcg/dose blister with device 1 ea INHALATION DAILY Incruse Ellipta 62.5 mcg/actuation blister with device 1 inh INHALATION DAILY atorvastatin 10 mg tablet 10 mg PO DAILY amlodipine 2.5 mg tablet 2.5 mg PO DAILY albuterol sulfate 90 mcg/actuation HFA aerosol inhaler 1 - 2 puff INHALATION Q4H PRN (Reason: dyspnea) Follow Up/Referrals: Alex Osorio MD [Primary Care Provider] - Stand Alone Forms: [employer] Info Instructions
[2024-01-06 11:20] LABS: Creatinine, Point-of-Care* 0.9 mg/dl (0.6-1.3)
[2024-01-06 11:23] LABS: Appearance Urine Slightly Cloudy (Clear); Bilirubin Urine Negative (Negative); Blood Urine 2+ (Negative); Color Urine Yellow (Yellow); Glucose Urine Negative (Negative); Ketones Urine Negative (Negative); Leukocyte Esterase Urine Negative (Negative); Nitrite Urine Negative (Negative); Protein Urine Negative (Negative); Urobilinogen Urine 0.2 (0.2-1.0)
--- NOTE | 2024-01-06 11:24 | ED.NURSE ---
Mccrary catheter placed, pt tolerated well. 300cc of urine drained from catheter.
[2024-01-06 11:40] LABS: Squamous Epithelial Cell Urine Few (None-Few)
--- NOTE | 2024-01-06 12:37 | ED.NURSE ---
Education given to pt and pt spouse about keeping catheter clean, and emptying bag. Catheter bag changed to leg bag.
== END 2024-01-06 12:35 | disposition home or self-care (01) ==
PROVIDERS: Emergency Provider Emergency Medicine Emergency Medical Services; PCP Surgery
DX: R33.9 Retention of urine, unspecified (principal)
CPT/HCPCS: 51702; 81001; 82565; 99283; 99284

== ENCOUNTER 2024-01-09 11:00 | Emergency (ER) | payer MEDICARE, OTHER, SELFPAY ==
[2024-01-09 11:07] VITALS: BP 185/87; PULSE 78; RESP 18; TEMP 36.7; O2SAT 99; BMI 23.6
--- NOTE | 2024-01-09 11:18 | ED_ITS ---
HPI - General Adult General Date Seen: 01/09/24 Chief complaint: Unspecified Complaint, Adult Stated complaint: catheter removal Time Seen by Provider: 01/09/24 11:03 Source: patient Mode of arrival: ambulatory Limitations: no limitations History of Present Illness HPI narrative: Patient is an 88-year-old male presenting for Mccrary catheter removal. He was having issues with urinary retention 3 days ago and a Mccrary catheter is placed on this EKG at that time. States also 1st time he has had issues with urinary retention. States the Mccrary has been working well. No other concerns noted. Related Data Home Medications ?Medication ?Instructions ?Recorded ?Confirmed fluticasone furoate 100 1 ea inhalation DAILY 03/03/23 01/06/24 mcg-vilanterol 25 mcg/dose inhalation powder (Breo Ellipta) lisinopril 20 mg tablet 20 mg PO DAILY 03/03/23 01/06/24 metoprolol succinate 25 mg 25 mg PO DAILY 03/03/23 01/06/24 tablet,extended release 24 hr pantoprazole 20 mg tablet,delayed 20 mg PO DAILY 03/03/23 03/03/23 release simvastatin 20 mg tablet 20 mg PO QPM 03/03/23 01/06/24 timolol maleate 0.5 % eye drops 1 drp ophthalmic (eye) Q12H 03/03/23 umeclidinium 62.5 mcg/actuation 1 inh inhalation DAILY 03/03/23 01/06/24 blister powder for inhalation (Incruse Ellipta) albuterol sulfate 90 mcg/actuation 1 - 2 puff inhalation Q4H PRN 01/06/24 01/06/24 aerosol inhaler dyspnea amlodipine 2.5 mg tablet 2.5 mg PO DAILY 01/06/24 01/06/24 atorvastatin 10 mg tablet 10 mg PO DAILY 01/06/24 01/06/24 Allergies Allergy/AdvReac Type Severity Reaction Status Date / Time No Known Drug Allergies Allergy Verified 01/06/24 10:16 Review of Systems Narrative: Pertinent systems reviewed and were negative unless stated in HPI PFSH PFSH Social History Smoking Status: Never smoker Do you use any of these nicotine containing products: None How often do you have a drink containing alcohol: never How often do you have six or more drinks on one occasion: Never AUDIT-C Alcohol total score: 0 Non-prescribed substance use: denies use Exam Narrative: Exam Narrative: Const: Well-nourished, Well-developed, in mild distress Eyes: PERRL, no conjunctival injection, and symmetrical lids HENT: Atraumatic external nose and ears. Moist mucous membranes. MSK:Extremities w/o deformity, Normal Active ROM Skin: Warm, Dry. No rashes or lesions. Neuro: Normal Muscle tone, No focal neurological deficits. Psych: Awake, Alert, & Oriented x3. Appropriate mood and affect. Const: Vital Signs, click to edit/add: Vital Signs - 24 hr 01/09/24 11:07 Temperature 98.0 F Pulse Rate [Right Pulse Oximeter] 78 Respiratory Rate 18 Blood Pressure [Ri ght Upper Arm] 185/87 H Pulse Oximetry 99 Oxygen Delivery Me thod Room Air Course Vital Signs Vital signs: Initial Vital Signs Temperature 98.0 F 01/09/24 11:07 Temperature Source Temporal Artery Scan 01/09/24 11:07 Pulse Rate 78 01/09/24 11:07 Respiratory Rate 18 01/09/24 11:07 Blood Pressure 185/87 H 01/09/24 11:07 Blood Pressure Mean 119 H 01/09/24 11:07 Blood Pressure Position Sitting 01/09/24 11:07 Pulse Oximetry 99 01/09/24 11:07 Oxygen Delivery Method Room Air 01/09/24 11:07 Vital Signs Temperature 98.0 F 01/09/24 11:07 Pulse Rate 78 01/09/24 11:07 Respiratory Rate 18 01/09/24 11:07 Blood Pressure 185/87 H 01/09/24 11:07 Pulse Oximetry 99 01/09/24 11:07 Oxygen Delivery Method Room Air 01/09/24 11:07 Temperature 98.0 F 01/09/24 11:07 Pulse Rate 78 01/09/24 11:07 Respiratory Rate 18 01/09/24 11:07 Blood Pressure 185/87 H 01/09/24 11:07 Pulse Oximetry 99 01/09/24 11:07 Oxygen Delivery Method Room Air 01/09/24 11:07 Medical Decision Making MDM Narrative Medical decision making narrative: Patient is an 88-year-old male presenting for Mccrary catheter removal. He is doing well this time. Mccrary will be removed. Informed to return to emergency department if he starts developing urinary retention again Discharge Plan Discharge Clinical Impression: Acute urinary retention Patient Disposition: Home, Self-Care Condition: Stable Instructions: Urinary Retention in Men (ED) Additional Instructions: If you start developing urinary retention return to emergency department or your primary care provider for re-evaluation. Prescriptions: No Action lisinopril 20 mg tablet 20 mg PO DAILY pantoprazole 20 mg tablet,delayed release (DR/EC) 20 mg PO DAILY simvastatin 20 mg tablet 20 mg PO QPM metoprolol succinate 25 mg tablet extended release 24 hr 25 mg PO DAILY timolol maleate 0.5 % drops 1 drp ophthalmic (eye) Q12H fluticasone furoate-vilanterol [Breo Ellipta] 100-25 mcg/dose blister with device 1 ea INHALATION DAILY Incruse Ellipta 62.5 mcg/actuation blister with device 1 inh INHALATION DAILY atorvastatin 10 mg tablet 10 mg PO DAILY amlodipine 2.5 mg tablet 2.5 mg PO DAILY albuterol sulfate 90 mcg/actuation HFA aerosol inhaler 1 - 2 puff INHALATION Q4H PRN (Reason: dyspnea) Follow Up/Referrals: Alex Osorio MD [Primary Care Provider] - Stand Alone Forms: [email or web address] Info Instructions
== END 2024-01-09 11:31 | disposition home or self-care (01) ==
PROVIDERS: Emergency Provider Student in an Organized Health Care Education/Training Program; PCP Surgery
DX: R33.9 Retention of urine, unspecified (principal); Z46.6 Encounter for fitting and adjustment of urinary device
CPT/HCPCS: 99281; 99282; 99283

== ENCOUNTER 2024-01-13 16:25 | Emergency (ER) | payer MEDICARE, OTHER, SELFPAY ==
[2024-01-13 17:29] VITALS: BP 149/80; PULSE 54; RESP 18; TEMP 36.3; O2SAT 97; BMI 25.8
--- NOTE | 2024-01-13 18:22 | ED.MALEGU ---
HPI - Male Genitourinary General Time Seen by Provider: 18:22 Date Seen: 01/13/24 Chief complaint: Urogenital Problems, Male Stated complaint: Needs catheter placement Time Seen by Provider: 01/13/24 18:21 Source: patient, RN notes reviewed and old records reviewed Mode of arrival: ambulatory Limitations: no limitations History of Present Illness HPI Narrative: Matteo is a very pleasant 88-year-old gentleman with recent acute urinary retention and a catheter who comes to the emergency room as he has had the catheter removed and has not been able to urinate well in the past few days. He tried to get into the clinic but they did not have any room for him and thus he came to the emergency room. Since he has been here he has urinated twice. He is very happy about that. He was seen approximately a week ago at which time a catheter was placed. He has not had any fevers vomiting or chills. He presents with his daughter peer Related Data Home Medications ?Medication ?Instructions ?Recorded ?Confirmed fluticasone furoate 100 1 ea inhalation DAILY 03/03/23 01/06/24 mcg-vilanterol 25 mcg/dose inhalation powder (Breo Ellipta) lisinopril 20 mg tablet 20 mg PO DAILY 03/03/23 01/06/24 metoprolol succinate 25 mg 25 mg PO DAILY 03/03/23 01/06/24 tablet,extended release 24 hr pantoprazole 20 mg tablet,delayed 20 mg PO DAILY 03/03/23 03/03/23 release simvastatin 20 mg tablet 20 mg PO QPM 03/03/23 01/06/24 timolol maleate 0.5 % eye drops 1 drp ophthalmic (eye) Q12H 03/03/23 umeclidinium 62.5 mcg/actuation 1 inh inhalation DAILY 03/03/23 01/06/24 blister powder for inhalation (Incruse Ellipta) albuterol sulfate 90 mcg/actuation 1 - 2 puff inhalation Q4H PRN 01/06/24 01/06/24 aerosol inhaler dyspnea amlodipine 2.5 mg tablet 2.5 mg PO DAILY 01/06/24 01/06/24 atorvastatin 10 mg tablet 10 mg PO DAILY 01/06/24 01/06/24 Allergies Allergy/AdvReac Type Severity Reaction Status Date / Time No Known Drug Allergies Allergy Verified 01/06/24 10:16 Review of Systems Status of ROS: Reports: 6 or more systems reviewed and unremarkable except as noted in History and below [facility] Social History Smoking Status: Never smoker Do you use any of these nicotine containing products: None How often do you have a drink containing alcohol: never How often do you have six or more drinks on one occasion: Never AUDIT-C Alcohol total score: 0 Non-prescribed substance use: denies use Exam Narrative: Exam Narrative: Alert and oriented. Very pleasant gentleman. No respiratory distress. Abdomen is soft nontender. Moving all extremities. Const: Vital Signs, click to edit/add: Vital Signs - 24 hr 01/13/24 17:29 Temperature 97.4 F L Pulse Rate [Pulse Oximeter] 54 L Respiratory Rate 18 Blood Pressure [Ri ght Upper Arm] 149/80 H Pulse Oximetry 97 Oxygen Delivery Me thod Room Air Documenting provider has reviewed patient's vital signs: yes Course Course ED Course: At this time patient has urinated twice in the emergency room. Would recommend bladder scan to ensure that he does not have any urinary retention. Reevaluation(s) Reevaluation #1: Bladder scan is negative for urine. Vital Signs Vital signs: Initial Vital Signs Temperature 97.4 F L 01/13/24 17:29 Temperature Source Temporal Artery Scan 01/13/24 17:29 Pulse Rate 54 L 01/13/24 17:29 Respiratory Rate 18 01/13/24 17:29 Blood Pressure 149/80 H 01/13/24 17:29 Blood Pressure Mean 103 01/13/24 17:29 Blood Pressure Position Sitting 01/13/24 17:29 Pulse Oximetry 97 01/13/24 17:29 Oxygen Delivery Method Room Air 01/13/24 17:29 Vital Signs Temperature 97.4 F L 01/13/24 17:29 Pulse Rate 54 L 01/13/24 17:29 Respiratory Rate 18 01/13/24 17:29 Blood Pressure 149/80 H 01/13/24 17:29 Pulse Oximetry 97 01/13/24 17:29 Oxygen Delivery Method Room Air 01/13/24 17:29 Temperature 97.4 F L 01/13/24 17:29 Pulse Rate 54 L 01/13/24 17:29 Respiratory Rate 18 01/13/24 17:29 Blood Pressure 149/80 H 01/13/24 17:29 Pulse Oximetry 97 01/13/24 17:29 Oxygen Delivery Method Room Air 01/13/24 17:29 MDM - Male Genitourinary MDM Narrative Medical decision making narrative: 1. History of urinary retention-no evidence of urinary retention today. Will discharge at this time. Suggest returning for fever, worsening symptoms and as needed. 2. Disposition-home with his daughter. Medical Records Attestation: I reviewed the patient's medical records. Discharge Plan Discharge Clinical Impression: History of urinary retention Patient Disposition: Home w/ Parent or Adult Condition: Unchanged Additional Instructions: Today the bladder scan did not show that you are retaining any urine. This can change however. If you find yourself with abdominal discomfort, inability to urinate please return to the emergency room for placement of a catheter and evaluation. Prescriptions: No Action lisinopril 20 mg tablet 20 mg PO DAILY pantoprazole 20 mg tablet,delayed release (DR/EC) 20 mg PO DAILY simvastatin 20 mg tablet 20 mg PO QPM metoprolol succinate 25 mg tablet extended release 24 hr 25 mg PO DAILY timolol maleate 0.5 % drops 1 drp ophthalmic (eye) Q12H fluticasone furoate-vilanterol [Breo Ellipta] 100-25 mcg/dose blister with device 1 ea INHALATION DAILY Incruse Ellipta 62.5 mcg/actuation blister with device 1 inh INHALATION DAILY atorvastatin 10 mg tablet 10 mg PO DAILY amlodipine 2.5 mg tablet 2.5 mg PO DAILY albuterol sulfate 90 mcg/actuation HFA aerosol inhaler 1 - 2 puff INHALATION Q4H PRN (Reason: dyspnea) Follow Up/Referrals: Alex Osorio MD [Primary Care Provider] - Stand Alone Forms: [employer] Info Instructions
== END 2024-01-13 18:50 | disposition home or self-care (01) ==
LOC: ED 18:43
PROVIDERS: Emergency Provider Family Medicine; PCP Surgery
DX: Z87.448 Personal history of other diseases of urinary system (principal)
CPT/HCPCS: 99282; 99283

== ENCOUNTER 2024-06-03 09:52 | Emergency (ER) | payer MEDICARE, OTHER, SELFPAY ==
--- OUTSIDE RECORDS SUMMARY | 2024-06-03 09:55 | XMS_ITS | Clinical Summary ---
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 Takes 2 tablets in the am, 1 at noon and 2 tablets in the evening 0 05/29/19 19 Active timolol maleate (TIMOPTIC) 0.5 % ophthalmic solution Place 1 Drop into both eyes once daily. Active fluticasone furoate-vilanter oL (Breo Ellipta) 100-25 mcg/dose inhalation powderIndication s:COPD mixed type (HC) Inhale 1 Puff by mouth once daily. 180 Each 3 12/02/19 24 Active metoprolol succinate (Toprol XL) 25 mg Sustained-Releas e tabletIndication s:SVT (supraventricula r tachycardia) (HC) Take 1 Tablet (25 mg) by mouth once daily. 90 Tablet 3 12/02/19 24 Active pantoprazole (PROTONIX) 20 mg tabletIndication s:Chronic GERD Take 1 Tablet (20 mg) by mouth once daily. 90 Tablet 3 12/02/19 24 Active umeclidinium (Incruse Ellipta) 62.5 mcg/actuation inhalerIndicatio ns:COPD mixed type (HC) Inhale 1 Puff by mouth once daily. 90 Each 3 12/02/19 24 Active albuterol HFA (PRO-AIR; VENTOLIN; PROVENTIL) 90 mcg/actuation inhalerIndicatio ns:COPD mixed type (HC) INHALE 1 TO 2 PUFFS BY MOUTH EVERY 4 HOURS NEEDED FOR SHORTNESS OF BREATH 6.7 g 12/17/19 24 Active amLODIPine (NORVASC) 2.5 mg tabletIndication s:Essential hypertension Take 1 Tablet (2.5 mg) by mouth once daily. 90 Tablet 3 01/02/20 24 Active atorvastatin (LIPITOR) 10 mg tabletIndication s:Hyperlipidemia with target LDL less than 160 Take 1 Tablet (10 mg) by mouth once daily. 90 Tablet 3 01/02/20 24 Active Active Problems Problem Noted Date Diagnosed Date LBBB (left bundle branch block) 07/05/2021 SVT (supraventricular tachycardia) 07/05/2021 Mitral valve insufficiency 07/05/2021 COPD mixed type 05/12/2021 Abdominal aortic aneurysm (AAA) without rupture 08/04/2018 Overview (08/05/2018): 08/04/18- Dr. Escoto 1. Mod IV sedation 2. US guided access bilateral TAX MANAGER 3. Abdominal aortogram 4. Repair of abdominal aortic aneurysm with 23 mm x 70 mm medtronic proximal cuff 5. Distal extension with 24 x 82 mm iliac stent 6. Completion angiogram Erectile dysfunction 10/06/2009 BPH without urinary obstruction 11/07/2006 Unspecified essential hypertension 08/01/2006 Impaired fasting glucose Hyperlipidemia LDL goal < 160 Resolved Problems Problem Noted Date Diagnosed Date Resolved Date HTN (hypertension) 07/05/2021 NSVT (nonsustained ventricular tachycardia) 07/05/2021 12/02/2023 Osteoarthritis 08/04/2018 08/21/2021 [facility] (current) use of anticoagulants 05/21/2012 06/06/2012 Contracture of palmar fascia 11/07/2006 08/21/2021 Overview (11/07/2006): left hand Diverticulosis of colon (wit hout mention of hemorrhage) 11/07/2006 08/21/2021 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 [place] [address] [facility] [address] [place] [address] Ervin Becerril, OT 04/21/2024 Travel 03/27/2024 Telephone [facility] [address] [place] [address] [address] Alex Osorio MD Questions (question) from Last 3 Months Immunizations Name Administration Dates Next Due COVID-19 VACCINE SPIKEVAX (M ODERNA 50MCG/0.5ML) 12YO+ PFS 01/02/2024 COVID-19 vaccine (Pfizer-Bio NTech 30mcg/0.3mL) MD ADELAV 06/18/2020,05/28/2020 Influenza A (H1N1), Inactivated 05/10/2009 Influenza A (H1N1), Inactiva salazar (Age >=3 Years) 03/01/2010,05/10/2009 Influenza, High-dose Inactivated 04/20/2016,03/15 Influenza, High-dose Quadriv alent Inactivated 01/30/2023,01/08/2022 Influenza, IIV3 (Age 6-35 mos) 12/23/2019,2009 Influenza, IIV3 (Age >=3 years) 01/27/20 14,04/10/2013,01/09/2012,2009,05/13/2009,02/11/2008,03/12/2007,1 ,04/12/2005,02/15/2004 Influenza, Inactivated AIIV4 (Age 65+ Years) Preserv Free 02/06/2021,12/23/2019 Influenza, Inactivated IIV3 (Age 65+ Years) Preserv Free 01/02/2024,01/07/2019,02/06/2018,2016 Pneumococcal Poly,23-Valent (Pneumovax) 04/12/2005,02/15/2004 Pneumococcal conj 13-Valent (Prevnar 13) 10/28/2014 Td (Age >=7 Years) 02/15/2004 Tdap 10/21/2013 Zoster (Shingrix-RZV, recombinant) 09/10/2018, Zoster (Zostavax-ZVL, live) 11/07/2006 Family History Medical History Relation Name Comments Good Health Daughter 3 Good Health Daughter 4 Heart Disease Mother Stroke Mother Hypertension Sister 2 Other Sister 3 Jerel's disea se Cancer-colon No Family History Relation Name Status Comments Brother Alive Daughter 1 Alive Daughter 2 Alive Daughter 3 Daughter 4 Father (Age 97) old age Mother (Age 79) mi Sister 1 Alive Sister 2 Sister 3 Social History Tobacco Use Types Packs/Day Years Used Date Smoking Tobacco: Former Cigarettes 0.3 30 1 - 01/23/2018 Smokeless Tobacco: Never Tobacco Cessation:Counseling Given: Yes Comments:quit 01/17/87 Alcohol Use Standard Drinks/Week Comments Yes 7 (1 standard drink = 0.6 oz pure alcohol) wine 1 glass (or cocktail) per day PHQ-2 Answer Date Recorded PHQ-2 TOTAL SCORE 0 12/02/2023 Social Connections Answer Date Recorded Do you often feel lonely or isolated from those around you? 0 12/02/2023 Alcohol Use Answer Date Recorded How often do you have a drink containing alcohol ? 4 05/12/2021 How many drinks containing a lcohol do you have on a typical day when you are drinking? 0 05/12/2021 How often do you have five or more drinks on one occasion? 0 05/12/2021 Financial Resource Strain Answer Date R ecorded Difficulty of Paying Living Expenses 3 12/02/2023 Difficulty of Paying Living Expenses Not on file 12/02/2023 Food Insecurity Answer Date Recorded Do you worry your food will run out before you are able to buy more? 1 12/02/2023 Transportation Needs Answer Date Record ed Does lack of transportation keep you from medica l appointments? 1 12/02/2023 Does lack of transportation keep you from work, meetings or getting things that you need? 1 12/02/2023 Housing Stability Answer Date Recorded What is your housing situation today? 1 12/02/2023 Utilities Answer Date Recorded Do you have trouble paying f or utilities (for example, heat, electricity, water, phone)? 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 Gender Identity Not on file Sexual Orientation Not on file Obstetrics History Last Filed Vital Signs Vital Sign Reading Time Taken Comments Blood Pressure 146/83 01/31/2024 11:44 AM CDT Pulse 70 01/31/2024 11:44 AM CDT Temperature 36.8 C (98.3 F) 04/20/2022 10:07 AM FLEET SALES ASSOCIATE Respiratory Rate 16 08/03/2021 2:24 PM CDT Oxygen Saturation 95% 01/31/2024 11:44 AM CDT Inhaled Oxygen Concentration - - Weight 81.6 kg (180 lb) 01/31/2024 11:44 AM CDT Height 168.5 cm (5' 6.34) 12/02/2023 1:34 PM CD T Body Mass Index 28.76 12/02/2023 1:34 PM CDT Plan of Treatment Upcoming Encounters Date Type Department Care Team (Late st Contact Info) Description 11/24/2024 9:30 AM CDT Office Visit [facility] [address] [place] [phone] Aki Agudelo III, PhD, [address] [facility] [address] [place] [address] Health Maintenance Due Date Last Done Comments RSV vaccine for adults or (1 - 1-dose 75+ series) 2012 Tetanus booster 10/22/2023 10/21/2013, 02/15/2004 BMI (ht and wt on same day) for age 18+ 12/01/2024 12/02/2023, 11/30/2022, 08/21/2021, Additional history exists Medicare Wellness for age 65+ 12/02/2024, 11/30/2022, 08/21/2021, Additional history exists Depression screening for age 12+ 12/03/2024 12/04/2023, 12/04/2023, 12/04/2023, Additional history exists Tdap Completed 10/21/2013 Pneumococcal series for age 50+ Completed 10/28/2014, 04/12/2005, 02/15/2004 Zoster (shingles) series for age 50+ Completed 09/10/2018, 06/27/2018, 11/07/2006 COVID-19 vaccine series Completed 01/02/20 24, 01/30/2023, 01/08/2022, Additional history exists Influenza for age 65+ Completed 01/02/2024 , 01/30/2023, 01/08/2022, Additional history exists Medical Devices Implanted Type Area Single Corner Cutter Device Identifier Shelf Expiration Date Model / Serial / Lot Stent Aaa [id number] Endurant 2 Limb Iliac - [id number] Implanted:Qty: 1 on 08/04/2018 by Harsha Escoto MD at [facility] N/A: Aorta Medtronic Aortic Intervention 01/03/2019 [id number]# / [id number] / Graft Stent Aaa Endurant 23x70 Implanted:Qty: 1 on 08/04/2018 by Harsha Escoto MD at [facility] N/A: Aorta Medtronic Aortic Intervention 12/10/2019 [id number] / [id number] / Insurance MEDICARE PB ONLY MEDICARE PART B HB ONLY [place] [id number] MEDICARE PART A HB ONLY Advance Directives Documents on File Type Date Recorded 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
[2024-06-03 10:05] VITALS: BP 145/82; PULSE 95; RESP 18; TEMP 36.3; O2SAT 97; BMI 25.1
--- NOTE | 2024-06-03 10:20 | ED_ITS ---
HPI - Male Genitourinary General Time Seen by Provider: 10:20 Date Seen: 06/03/24 Chief complaint: Urogenital Problems, Male Stated complaint: Unable to urinate Time Seen by Provider: 06/03/24 10:20 Source: patient, family and RN notes reviewed Mode of arrival: ambulatory Limitations: no limitations History of Present Illness HPI Narrative: This 88-year-old male is ambulatory into the ED with complaint of inability to urinate. Is reporting some penile pain, no significant abdominal pain. His daughter notes that he has had urinary retention a few times in the past year. He does have underlying memory issues per her, history is not always reliable. The urinary issues likely started yesterday. He did call his yesterday at [facility] and reported difficulty urinating. No noted fevers at this time, does not have a fever on presentation. Related Data Home Medications ?Medication ?Instructions ?Recorded ?Confirmed fluticasone furoate 100 1 ea inhalation DAILY 03/03/23 06/03/24 mcg-vilanterol 25 mcg/dose inhalation powder (Breo Ellipta) metoprolol succinate 25 mg 25 mg PO DAILY 03/03/23 06/03/24 tablet,extended release 24 hr pantoprazole 20 mg tablet,delayed 20 mg PO DAILY 03/03/23 06/03/24 release simvastatin 20 mg tablet 20 mg PO QPM 03/03/23 06/03/24 albuterol sulfate 90 mcg/actuation 1 - 2 puff inhalation Q4H PRN 01/06/24 06/03/24 aerosol inhaler dyspnea amlodipine 2.5 mg tablet 2.5 mg PO DAILY 01/06/24 06/03/24 Previous Rx's ?Medication ?Instructions ?Recorded cephalexin 500 mg tablet 500 mg PO TID #15 tabs 06/03/24 Allergies Allergy/AdvReac Type Severity Reaction Status Date / Time No Known Drug Allergies Allergy Verified 06/03/24 10:05 Review of Systems Narrative: As per HPI. PFSH PFSH Social History Smoking Status: Never smoker Do you use any of these nicotine containing products: None How often do you have a drink containing alcohol: never How often do you have six or more drinks on one occasion: Never AUDIT-C Alcohol total score: 0 Non-prescribed substance use: denies use Exam Const: Vital Signs, click to edit/add: Vital Signs - 24 hr 06/03/24 10:05 06/03/24 10:30 06/03/24 11:00 Temperature 97.3 F L Pulse Rate [Pulse Oximeter] 95 79 92 Respiratory Rate 18 18 18 Blood Pressure [Ri ght Upper Arm] 145/82 H 120/62 140/82 H Pulse Oximetry 97 97 95 Oxygen Delivery Me thod Room Air Room Air Patient is alert, interactive, no apparent distress. Sclera clear, speaking normally. Lungs are clear, no tachypnea, no accessory muscle use, no wheezing or crackles. CV regular, 2 to 3/6 systolic murmur, does sound like this could be systolic ejection murmur consistent with potentially, normal S1-S2. Abdomen is soft at this time, nontender, nondistended, no rebound or guarding, no organomegaly. Nursing staff had just placed Mccrary catheter for bladder scan showing over 600 mL. Patient had a Mccrary catheter placed without difficulty, has drained out 800 mL already. Testes descended bilaterally, normal penis, no inguinal masses. Documenting provider has reviewed patient's vital signs: yes Course Course ED Course: Patient has acute urinary retention, Mccrary catheter has been placed. Will send urinalysis just to ensure no infection as causative etiology. Reevaluation(s) Time of Reevaluation #1: 11:20 Reevaluation #1: Will plan on treating given urinalysis. Will send in oral antibiotics. Patient does not require hospitalization at this time, clinically stable. No prior microbiology results with prior UTIs to review. Vital Signs Vital signs: Initial Vital Signs Temperature 97.3 F L 06/03/24 10:05 Temperature Source Temporal Artery Scan 06/03/24 10:05 Pulse Rate 95 06/03/24 10:05 Respiratory Rate 18 06/03/24 10:05 Blood Pressure 145/82 H 06/03/24 10:05 Blood Pressure Mean 103 06/03/24 10:05 Blood Pressure Position Semi-Fowlers 06/03/24 10:05 Pulse Oximetry 97 06/03/24 10:05 Oxygen Delivery Method Room Air 06/03/24 10:05 Vital Signs Temperature 97.3 F L 06/03/24 10:05 Pulse Rate 95 06/03/24 10:05 Respiratory Rate 18 02/19/25 10:05 Blood Pressure 145/82 H 06/03/24 10:05 Pulse Oximetry 97 06/03/24 10:05 Oxygen Delivery Method Room Air 06/03/24 10:05 Temperature 97.3 F L 06/03/24 10:05 Pulse Rate 92 06/03/24 11:00 Respiratory Rate 18 06/03/24 11:00 Blood Pressure 140/82 H 06/03/24 11:00 Pulse Oximetry 95 06/03/24 11:00 Oxygen Delivery Method Room Air 06/03/24 11:00 MDM - Male Genitourinary Lab Data Attestation: I reviewed the patient's lab results. Labs: Lab Results 06/03/24 Range/Units 10:25 Urine Color Yellow (Yellow) Urine Appearance Slightly Cloudy A (Clear) Urine pH 6.0 (5.0-8.5) Ur Specific [place] 1.015 (1.000-1.030) Urine Protein Trace A (Negative) Urine Glucose (UA) Negative (Negative) Urine Ketones Negative (Negative) Urine Blood 1+ A (Negative) Urine Nitrite Negative (Negative) Urine Bilirubin Negative (Negative) Urine Urobilinogen 0.2 (0.2-1.0) Ur Leukocyte Esterase 2+ A (Negative) Urine RBC 10-25 A (0-2) Urine WBC 50-100 A (0-5) Ur Squamous Epith Cells None (None-Few) Urine Bacteria Few A (None) Discharge Plan Discharge Clinical Impression: Acute retention of urine Patient Disposition: Home, Self-Care Condition: Stable Instructions: Urinary Retention in Men (ED), Mccrary Catheter Placement and Care (ED) Additional Instructions: Need to schedule a clinic followup within the next week. You will need to leave the Mccrary catheter in place. Handouts provided on management and care. We are going to cover with antibiotics as the urinalysis does suggest some infection. We will contact you if the urine culture dictates any change for antibiotics. Complete antibiotics if you do not hear from us. Activity Level: Activity as Tolerated Prescriptions: New cephalexin 500 mg tablet 500 mg PO TID Qty: 15 0RF No Action pantoprazole 20 mg tablet,delayed release (DR/EC) 20 mg PO DAILY simvastatin 20 mg tablet 20 mg PO QPM metoprolol succinate 25 mg tablet extended release 24 hr 25 mg PO DAILY fluticasone furoate-vilanterol [Breo Ellipta] 100-25 mcg/dose blister with device 1 ea INHALATION DAILY amlodipine 2.5 mg tablet 2.5 mg PO DAILY albuterol sulfate 90 mcg/actuation HFA aerosol inhaler 1 - 2 puff INHALATION Q4H PRN (Reason: dyspnea) Follow Up/Referrals: Alex Osorio MD [Primary Care Provider] - Stand Alone Forms: [employer] Info Instructions
[2024-06-03 10:30] VITALS: BP 120/62; PULSE 79; RESP 18; O2SAT 97
--- OUTSIDE RECORDS SUMMARY | 2024-06-03 10:33 | XMS_ITS | Clinical Summary ---
Author Organization [facility] Address [address] [place] [address] Care Team Providers Care Rib Sawyer Name Role Phone Alex Osorio MD Primary Care Provider [phone]- [phone] Allergies No known active allergies Medications ZINC [...] IV sedation 2. 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 Abdominal aortogram 4. 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 08/21/2021 Tobacco use disorder 022 Overview (04/07/2018): Quit smoking 01/2018 Encounters Date Type Department Care Team Description 06/03/2024 Nurse Triage [facility] [address] [place] [address] Alex Osorio MD Pain On Urination 04/30/2024 Telephone [facility] [address] [place] [address] Alex Osorio MD Drivers License 04/21/2024 8:44 AM LOG TURNER - 04/21/2024 11:59 PM LOG TURNER Hospital Encounter [facility] - Drivers [place] [address] [facility] [address] [place] [address] Ervin Becerril, OT 04/21/2024 Travel 03/27/2024 Telephone [facility] [address] [place] [address] [address] Alex Osorio MD Questions (question) from Last [...] on file Legal Sex Male 5:24 AM LOG TURNER Gender Identity Not on file Sexual Orientation Not on file Obstetrics History Last Filed Vital Signs Vital Sign Reading Time Taken Comments Blood Pressure 146/83 01/31/2024 11:44 AM CDT Pulse 70 01/31/2024 11:44 AM CDT Temperature 36.8 C (98.3 F) 04/20/2022 10:07 AM LOG TURNER Respiratory Rate 16 08/03/2021 2:24 PM CDT [...] Description 11/24/2024 9:30 AM CDT Office Visit [facility] [address] [place] [id number] Aki Agudelo III, PhD, [address] [facility] [address] [place] [address] Health Maintenance Due Date Last Done Comments [...] history exists Medical Devices Implanted Type Area Group Work Program Aide Device Identifier Shelf Expiration Date Model / Serial / Lot Stent Aaa 24x82 Endurant 2 Limb Iliac - [id number] Implanted:Qty: 1 on 08/04/2018 by Harsha Escoto MD at [facility] N/A: Aorta Medtronic Aortic Intervention 01/03/2019 [id number]# / [id number] / Graft Stent Aaa Endurant 23x70 Implanted:Qty: 1 on 08/04/2018 by Harsha Escoto MD at [facility] N/A: Aorta Medtronic Aortic Intervention 12/10/2019 [id number] / [id number] / Insurance MEDICARE PB ONLY MEDICARE PART B HB ONLY [place] [id number] MEDICARE PART A HB ONLY Advance Directives Documents on File Type Date Recorded Patient Photolithographic Stripper Expl anation Healthcare Directive 12/05/2023 1:52 PM * Full Code (Latest Code Status on File) Date Activated Date Inactivated Comments 08/04/2018 5:57 AM 08/05/2018 4:13 PM Care Teams Rib Sawyer Relationship Specialty Start Date End Date Alex Osorio MD [address] [place] [address] [address] PCP - General Family Practice 06/06/20
[2024-06-03 10:39] LABS: Appearance Urine Slightly Cloudy (Clear); Bilirubin Urine Negative (Negative); Blood Urine 1+ (Negative); Color Urine Yellow (Yellow); Glucose Urine Negative (Negative); Ketones Urine Negative (Negative); Leukocyte Esterase Urine 2+ (Negative); Nitrite Urine Negative (Negative); Protein Urine Trace (Negative); Specific Gravity Urine 1.015 (1.000-1.030); Urobilinogen Urine 0.2 (0.2-1.0)
[2024-06-03 10:55] LABS: Bacteria Urine Few; WBC Urine 50-100 (0-5)
[2024-06-03 11:00] VITALS: BP 140/82; PULSE 92; RESP 18; O2SAT 95
== END 2024-06-03 11:42 | disposition home or self-care (01) ==
PROVIDERS: Emergency Provider Family Medicine; PCP Surgery
DX: R33.9 Retention of urine, unspecified (principal)
CPT/HCPCS: 51702; 81001; 87086; 99283

== ENCOUNTER 2024-06-10 10:48 | Emergency (ER) | payer MEDICARE, OTHER, SELFPAY ==
[2024-06-10 10:50] VITALS: BP 143/80; PULSE 106; RESP 18; TEMP 37.4; O2SAT 95; BMI 27.4
--- NOTE | 2024-06-10 11:06 | ED.GENADULT ---
HPI - General Adult General Chief complaint: Urogenital Problems, Male Stated complaint: Catheter came apart Time Seen by Provider: 06/10/24 11:03 History of Present Illness HPI narrative: Patient presents to the emergency department complaining of urinary sediment. Patient's urinary catheter bag came disconnected over night and drained onto the floor, family was unsure if they could reconnect the bag for sanitary concerns. Family noticed sediment in the bag and per their previous discharge instructions was told to return if they saw sand like sediment. Diagnosed with UTI in the clinic yesterday and was started on amoxicillin. 88-year-old man presenting to the emergency department with concern of disconnected urinary catheter. They also noted some sediment and had been recommended follow-up if this was visualized. Otherwise is in usual state of health. Underlying history of dementia. Accompanied here by daughter. Was seen a week ago in this emergency department and had a Mccrary placed for urinary retention. Is scheduled to have this discontinued in a couple of days. Urine culture from 06/03 looks to have grown Proteus mirabilis and was yesterday initiated on amoxicillin upon review of sensitivities. No fever. Related Data Home Medications ?Medication ?Instructions ?Recorded ?Confirmed fluticasone furoate 100 1 ea inhalation DAILY 03/03/23 06/10/24 mcg-vilanterol 25 mcg/dose inhalation powder (Breo Ellipta) metoprolol succinate 25 mg 25 mg PO DAILY 03/03/23 06/10/24 tablet,extended release 24 hr pantoprazole 20 mg tablet,delayed 20 mg PO DAILY 03/03/23 06/10/24 release simvastatin 20 mg tablet 20 mg PO QPM 03/03/23 06/10/24 albuterol sulfate 90 mcg/actuation 1 - 2 puff inhalation Q4H PRN 01/06/24 06/10/24 aerosol inhaler dyspnea amlodipine 2.5 mg tablet 2.5 mg PO DAILY 01/06/24 06/10/24 amoxicillin 875 mg tablet mg 06/10/24 Previous Rx's ?Medication ?Instructions ?Recorded cephalexin 500 mg tablet 500 mg PO TID #15 tabs 06/03/24 Allergies Allergy/AdvReac Type Severity Reaction Status Date / Time No Known Drug Allergies Allergy Verified 06/10/24 10:59 Review of Systems Status of ROS: Reports: unobtainable due to mental status PFSH PFSH Social History Smoking Status: Never smoker Do you use any of these nicotine containing products: None How often do you have a drink containing alcohol: never How often do you have six or more drinks on one occasion: Never AUDIT-C Alcohol total score: 0 Non-prescribed substance use: denies use Exam Narrative: Exam Narrative: NAD. Poor recall. Breathing easily. Mildly reddened but not cellulitic genital tissues. As if had been moist recently. The catheter and has been covered by plastic bag. No pain to palpation of the abdomen. Const: Vital Signs, click to edit/add: Vital Signs - 24 hr 06/10/24 10:50 06/10/24 12:20 Temperature 99.3 F Pulse Rate [Right Pulse Oximeter] 106 H 75 Respiratory Rate 18 16 Blood Pressure [Ri ght Upper Arm] 143/80 H 132/71 Pulse Oximetry 95 95 Oxygen Delivery Me thod Room Air Room Air Documenting provider has reviewed patient's vital signs: yes Course Vital Signs Vital signs: Initial Vital Signs Temperature 99.3 F 06/10/24 10:50 Temperature Source Temporal Artery Scan 06/10/24 10:50 Pulse Rate 106 H 06/10/24 10:50 Pulse Rhythm Regular 06/10/24 10:50 Pulse Strength 3+ Normal 06/10/24 10:50 Respiratory Rate 18 06/10/24 10:50 Blood Pressure 143/80 H 06/10/24 10:50 Blood Pressure Mean 101 06/10/24 10:50 Blood Pressure Position Sitting 06/10/24 10:50 Pulse Oximetry 95 06/10/24 10:50 Oxygen Delivery Method Room Air 06/10/24 10:50 Vital Signs Temperature 99.3 F 06/10/24 10:50 Pulse Rate 106 H 06/10/24 10:50 Respiratory Rate 18 06/10/24 10:50 Blood Pressure 143/80 H 06/10/24 10:50 Pulse Oximetry 95 06/10/24 10:50 Oxygen Delivery Method Room Air 06/10/24 10:50 Temperature 99.3 F 06/10/24 10:50 Pulse Rate 75 06/10/24 12:20 Respiratory Rate 16 06/10/24 12:20 Blood Pressure 132/71 06/10/24 12:20 Pulse Oximetry 95 06/10/24 12:20 Oxygen Delivery Method Room Air 06/10/24 12:20 Medications Administered Medications: Discontinued Medications Generic Name Dose Route Start Last Admin Trade Name Jasonq PRN Reason Stop Dose Admin Lidocaine HCl 6 ml 06/10/24 12:21 06/10/24 11:26 Lidocaine Hcl 2 % Jelly (Top) Sterile UR 6 ml ONCE PRN Administration Medical Decision Making MDM Narrative Medical decision making narrative: Considering the sediment in potential backflow of urine nursing this thinking might be a good idea to go ahead and change the catheter completely. Will go ahead and do this and monitor for appropriate drainage. Looks to be on appropriate antibiotic Noted to have more significant sediment and so opted to flush catheter. This all appears to have drained. Bladder scanned for negligible amount. Is refilling the bag with blood tinged clearer urine. See patient discharge plan for further discussion Please follow-up as scheduled, though would also be probably okay to wait until through the to pull this catheter if Fridays appointment proves to be difficult to attend. Return for malfunctioning catheter, increasing abdominal pain, fever. Medical Records Medical records reviewed: Yes I reviewed the patient's medical records Discharge Plan Discharge Clinical Impression: Urinary catheter complication, Cystitis Patient Disposition: Home w/ Parent or Adult Condition: Improved Additional Instructions: Please follow-up as scheduled, though would also be probably okay to wait until through the to pull this catheter if Fridays appointment proves to be difficult to attend. Return for malfunctioning catheter, increasing abdominal pain, fever. Prescriptions: No Action amoxicillin 875 mg tablet pantoprazole 20 mg tablet,delayed release (DR/EC) 20 mg PO DAILY simvastatin 20 mg tablet 20 mg PO QPM metoprolol succinate 25 mg tablet extended release 24 hr 25 mg PO DAILY fluticasone furoate-vilanterol [Breo Ellipta] 100-25 mcg/dose blister with device 1 ea INHALATION DAILY amlodipine 2.5 mg tablet 2.5 mg PO DAILY albuterol sulfate 90 mcg/actuation HFA aerosol inhaler 1 - 2 puff INHALATION Q4H PRN (Reason: dyspnea) cephalexin 500 mg tablet 500 mg PO TID Qty: 15 0RF Follow Up/Referrals: Alex Osorio MD [Primary Care Provider] - Stand Alone Forms: [facility] [employer] Info Instructions
[2024-06-10] MEDS: lidocaine HCL 2 % JELLY (TOP) STERILE 6 ML UR (11:26)
[2024-06-10 12:20] VITALS: BP 132/71; PULSE 75; RESP 16; O2SAT 95
== END 2024-06-10 12:53 | disposition home or self-care (01) ==
PROVIDERS: Emergency Provider Family Medicine; PCP Surgery
DX: N30.90 Cystitis, unspecified without hematuria (principal); T83.018A Breakdown (mechanical) of other urinary catheter, initial encounter
CPT/HCPCS: 51702; 51798; 99283

== ENCOUNTER 2024-06-12 22:33 | Emergency (ER) | payer MEDICARE, OTHER, SELFPAY ==
--- OUTSIDE RECORDS SUMMARY | 2024-06-12 22:37 | XMS_ITS | Clinical Summary ---
Author Organization [facility] Address [address] [place] [address] Care Team Providers Care Environmental Engineering Manager Name Role Phone Alex Osorio MD Primary Care Provider [phone]- [phone] Allergies No known active allergies Medications ZINC 50 MG TAB 1 orally twice weekly on Mondays and Fridays 0 008 Active acetaminophen SR (TYLENOL ARTHRITIS) 650 mg Extended-Releas e tablet Max acetaminophen dose: 4000mg in 24 hrs. Takes 2 tablets in the am, 1 at noon and 2 tablets in the evening 0 019 Active timolol maleate (TIMOPTIC) 0.5 % ophthalmic solution Place 1 Drop into both eyes once daily. Active fluticasone furoate-vilante roL (Breo Ellipta) 100-25 mcg/dose inhalation powderIndicatio ns:COPD mixed type (HC) Inhale 1 Puff by mouth once daily. 180 Each 024 Active metoprolol succinate (Toprol XL) 25 mg Sustained-Relea se tabletIndicatio ns:SVT (supraventricul ar tachycardia) (HC) Take 1 Tablet (25 mg) by mouth once daily. 90 Tablet 3 024 Active pantoprazole (PROTONIX) 20 mg tabletIndicatio ns:Chronic GERD Take 1 Tablet (20 mg) by mouth once daily. 90 Tablet 3 024 Active umeclidinium (Incruse Ellipta) 62.5 mcg/actuation inhalerIndicati ons:COPD mixed type (HC) Inhale 1 Puff by mouth once daily. 90 Each 3 024 Active amLODIPine (NORVASC) 2.5 mg tabletIndicatio ns:Essential hypertension Take 1 Tablet (2.5 mg) by mouth once daily. 90 Tablet 3 024 Active atorvastatin (LIPITOR) 10 mg tabletIndicatio ns:Hyperlipidem ia with target LDL less than 160 Take 1 Tablet (10 mg) by mouth once daily. 90 Tablet 3 024 Active albuterol HFA (PRO-AIR; VENTOLIN; PROVENTIL) 90 mcg/actuation inhalerIndicati ons:COPD mixed type (HC) INHALE 1 TO 2 PUFFS BY MOUTH EVERY 4 HOURS NEEDED FOR SHORTNESS OF BREATH 6.7 g 025 Active tamsulosin 0.4 mg capsuleIndicati ons:BPH without urinary obstruction Take 1 Capsule (0.4 mg) by mouth once daily after a meal. 90 Capsule 3 025 Active amoxicillin 875 mg tabletIndicatio ns:urinary tract infection Take 1 Tablet (875 mg) by mouth two times daily for 5 days. 10 Tablet 025 2024 Active albuterol HFA (PRO-AIR; VENTOLIN; PROVENTIL) 90 mcg/actuation inhalerIndicati ons:COPD mixed type (HC) INHALE 1 TO 2 PUFFS BY MOUTH EVERY 4 HOURS NEEDED FOR SHORTNESS OF BREATH 6.7 g 024 2024 Discontinued Active Problems Problem Noted Date Diagnosed Date LBBB (left bundle branch block) 07/05/2021 SVT (supraventricular tachycardia) 07/05/2021 Mitral valve insufficiency 07/05/2021 COPD mixed type 05/12/2021 Abdominal aortic aneurysm (AAA) without rupture 08/04/2018 Overview (08/05/2018): 08/04/18- Dr. Escoto 1. Mod IV sedation 2. 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 Abdominal aortogram 4. 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 08/21/2021 Tobacco use disorder 022 Overview (04/07/2018): Quit smoking 01/2018 Encounters Date Type Department Care Team Description 06/12/2024 9:00 AM HVAC DESIGN MECHANICAL ENGINEER Nurse/Clinic Staff Only [facility] [address] [place] [address] Removal (Mccrary catheter) 06/12/2024 Travel 06/10/2024 Travel 06/09/2024 11:45 AM HVAC DESIGN MECHANICAL ENGINEER Office Visit [facility] [address] [address] Alex Osorio MD Hospital F/U 06/09/2024 Travel 06/06/2024 Orders Only [facility] Scanner 1 scan: (1-Ord) [facility], 06/06/2024 06/04/2024 Travel 06/03/2024 Refill [facility] [place] [address] [address] Alex Osorio MD Refill Request (Albuterol Hfa) 06/03/2024 Nurse Triage [facility] [place] [address] [address] Alex Osorio MD Pain On Urination 04/30/2024 Telephone [facility] [place] [address] [address] Alex Osorio MD Drivers License 04/21/2024 8:44 AM HVAC DESIGN MECHANICAL ENGINEER - 04/21/2024 11:59 PM HVAC DESIGN MECHANICAL ENGINEER Hospital Encounter [facility] - Drivers [place] [address] [place] [address] Ervin Becerril OT 04/21/2024 Travel 03/27/2024 Telephone [facility] [address] [place], [place] [id number] Alex Osorio MD Questions (question) from Last 3 Months Immunizations Name Administration Dates Next Due COVID-19 VACCINE SPIKEVAX (M ODERNA 50MCG/0.5ML) 12YO+ PFS 01/02/2024 COVID-19 vaccine (Pfizer-Bio NTech 30mcg/0.3mL) LILIAN CHAPMAN 06/18/2020,05/28/2020 Influenza A (H1N1), Inactivated 05/10/2009 Influenza [...] Mother Hypertension Sister 2 Other Sister 3 [place]'s disea se Cancer-colon No Family History Relation [...] on file Legal Sex Male 5:24 AM HVAC DESIGN MECHANICAL ENGINEER Gender Identity Not on file Sexual Orientation Not on file Obstetrics History Last Filed Vital Signs Vital Sign Reading Time Taken Comments Blood Pressure 123/78 06/09/2024 11:41 AM HVAC DESIGN MECHANICAL ENGINEER Pulse 91 06/09/2024 11:41 AM HVAC DESIGN MECHANICAL ENGINEER Temperature 36.8 C (98.3 F) 04/20/2022 10:07 AM HVAC DESIGN MECHANICAL ENGINEER Respiratory Rate 16 08/03/2021 2:24 PM CDT Oxygen Saturation 97% 06/09/2024 11:41 AM HVAC DESIGN MECHANICAL ENGINEER Inhaled Oxygen Concentration - - Weight 87 kg (191 lb 12.8 oz) 06/09/2024 11:41 A M HVAC DESIGN MECHANICAL ENGINEER Height 168.5 cm (5' 6.34) 12/02/2023 1:34 PM CD T Body Mass Index 30.64 12/02/2023 1:34 PM CDT Plan of Treatment Upcoming Encounters Date Type Department Care Team (Late st Contact Info) Description 11/24/2024 9:30 AM CDT Office Visit [facility] [address] [place] [address] Aki Agudelo III, PhD, [address] [address] [place] [address] Health Maintenance Due Date Last Done Comments [...] history exists Medical Devices Implanted Type Area Tax Auditor Device Identifier Shelf Expiration Date Model / Serial / Lot Stent Aaa 24x82 Endurant 2 Limb Iliac - [id number] Implanted:Qty: 1 on 08/04/2018 by Harsha Escoto MD at [facility] N/A: Aorta Medtronic Aortic Intervention 01/03/2019 [id number]# / [id number] / Graft Stent Aaa Endurant 23x70 Implanted:Qty: 1 on 08/04/2018 by Harsha Escoto MD at [facility] N/A: Aorta Medtronic Aortic Intervention 12/10/2019 [id number] / [id number] / Procedures Procedure Name Priority Date/Time Associated Diagnosis Comments SCAN-LABORATORY REPORT 06/06/2024 12:00 AM HVAC DESIGN MECHANICAL ENGINEER from Last 3 Months Results * SCAN-LABORATORY REPORT (06/06/2024 12:00 AM HVAC DESIGN MECHANICAL ENGINEER) us Scanner OTHER Final Result from Last 3 Months Insurance MEDICARE PB ONLY MEDICARE PART B HB [place] [id number] MEDICARE PART A HB ONLY Advance Directives Documents on File Type Date Recorded Patient Traffic Enumerator Expl anation Healthcare Directive 12/05/2023 1:52 PM * Full Code (Latest Code Status on File) Date Activated Date Inactivated Comments 08/04/2018 5:57 AM 08/05/2018 4:13 PM Care Teams Environmental Engineering Manager Relationship Specialty Start Date End Date [place] [address] [address] [address] PCP - General Family Practice 06/06/20
[2024-06-12 22:59] VITALS: BP 150/76; PULSE 89; RESP 16; TEMP 37.1; O2SAT 94; BMI 27.4
--- NOTE | 2024-06-12 23:20 | ED.GENADULT ---
HPI - General Adult General Chief complaint: Urogenital Problems, Male Stated complaint: trouble urinating Time Seen by Provider: 06/12/24 23:06 History of Present Illness HPI narrative: Pleasant 88-year-old man accompanied to the ER today by his daughter and sister for evaluation of acute urinary retention. He has had trouble with urinary retention dating back about 6 months when he was seen in the ER and had a Mccrary catheter placed for retention. He was seen again about 9 days ago on June 03 with retention and had a Mccrary catheter placed. He had subsequent urinalysis with culture growing Proteus. He has been started on amoxicillin to treat the Proteus (based on culture sensitivities) and has 1 more day of antibiotic to go. He has not had any fever. No abdominal pain. No flank pain. No vomiting. He had a return visit to the ER couple of days ago after his Mccrary catheter became disconnected from the catheter drainage tubing. He then had follow-up in the [facility] today with Dr. Osorio. He had his Mccrary catheter removed and succeeded with a trial of voiding in the clinic. He was also able to void about 215 this afternoon at home. Since then he has not been able to urinate any more. He is feeling increasing pressure in his bladder and penis with sensation of need to urinate but is unable to do so. No other new symptoms such as fever, nausea vomiting, flank pain. He has been prescribed Flomax by his PCP, with plans to start tomorrow . he has 1 more day of antibiotics to treat his UTI. Related Data Home Medications ?Medication ?Instructions ?Recorded ?Confirmed fluticasone furoate 100 1 ea inhalation DAILY 03/03/23 06/10/24 mcg-vilanterol 25 mcg/dose inhalation powder (Breo Ellipta) metoprolol succinate 25 mg 25 mg PO DAILY 03/03/23 06/10/24 tablet,extended release 24 hr pantoprazole 20 mg tablet,delayed 20 mg PO DAILY 03/03/23 06/10/24 release simvastatin 20 mg tablet 20 mg PO QPM 03/03/23 06/10/24 albuterol sulfate 90 mcg/actuation 1 - 2 puff inhalation Q4H PRN 01/06/24 06/10/24 aerosol inhaler dyspnea amlodipine 2.5 mg tablet 2.5 mg PO DAILY 01/06/24 06/10/24 amoxicillin 875 mg tablet mg 06/10/24 Previous Rx's ?Medication ?Instructions ?Recorded cephalexin 500 mg tablet 500 mg PO TID #15 tabs 06/03/24 Allergies Allergy/AdvReac Type Severity Reaction Status Date / Time No Known Drug Allergies Allergy Verified 06/10/24 10:59 [facility] Social History Smoking Status: Never smoker Do you use any of these nicotine containing products: None Second hand tobacco smoke exposure: No How often do you have a drink containing alcohol: never How often do you have six or more drinks on one occasion: Never AUDIT-C Alcohol total score: 0 Non-prescribed substance use: denies use service: No Exam Narrative: Exam Narrative: Constitutional: Appears well-developed and well-nourished. Alert. Conversant but seems mildly confused, and this is corroborated by his family who report he does have some mild memory impairment.. Non toxic. HENT: Head: Atraumatic. Nose: Nose normal. Mouth/Throat: Oral mucosa is clear and moist. no trismus. Eyes: Conjunctivae normal. EOM normal. Pupils equal, round, and reactive to light. No scleral icterus. Neck: Normal range of motion. Neck supple. No tracheal deviation present. Cardiovascular: Normal rate, regular rhythm. No gallop. No friction rub. No murmur heard. Symmetric radial artery pulses Pulmonary/Chest: Effort normal. No stridor. No respiratory distress. No wheezes. No rales. No rhonchi . No tenderness. Abdominal: Soft. Bowel sounds normal. No distension. No mass. No tenderness. No rebound. No guarding. No CVA tenderness Musculoskeletal: RUE: Normal range of motion. No tenderness. No deformity LUE: Normal range of motion. No tenderness. No deformity RLE: Normal range of motion. No edema. No tenderness. No deformity LLE: Normal range of motion. No edema. No tenderness. No deformity Neurological: Alert and oriented to person, place, and time but is mildly confused. Very polite and pleasant. Cooperative. Normal strength. CN II-VII intact. No sensory deficit. GCS eye subscore is 4. GCS verbal subscore is 5. GCS motor subscore is 6. Normal coordination Skin: Skin is warm and dry. No rash noted. No pallor. Normal capillary refill. Psychiatric: Normal mood. Normal affect. Endorses discomfort in need to urinate. Const: Vital Signs, click to edit/add: Vital Signs - 24 hr 06/12/24 22:59 Temperature 98.8 F Pulse Rate [Pulse Oximeter] 89 Respiratory Rate 16 Blood Pressure [Ri ght Upper Arm] 150/76 H Pulse Oximetry 94 Oxygen Delivery Me thod Room Air Course Vital Signs Vital signs: Initial Vital Signs Temperature 98.8 F 06/12/24 22:59 Temperature Source Temporal Artery Scan 06/12/24 22:59 Pulse Rate 89 06/12/24 22:59 Pulse Rhythm Regular 06/12/24 22:59 Respiratory Rate 16 06/12/24 22:59 Blood Pressure 150/76 H 06/12/24 22:59 Blood Pressure Mean 100 06/12/24 22:59 Blood Pressure Position Supine 06/12/24 22:59 Pulse Oximetry 94 06/12/24 22:59 Oxygen Delivery Method Room Air 06/12/24 22:59 Vital Signs Temperature 98.8 F 06/12/24 22:59 Pulse Rate 89 06/12/24 22:59 Respiratory Rate 16 06/12/24 22:59 Blood Pressure 150/76 H 06/12/24 22:59 Pulse Oximetry 94 06/12/24 22:59 Oxygen Delivery Method Room Air 06/12/24 22:59 Temperature 98.8 F 06/12/24 22:59 Pulse Rate 89 06/12/24 22:59 Respiratory Rate 16 06/12/24 22:59 Blood Pressure 150/76 H 06/12/24 22:59 Pulse Oximetry 94 06/12/24 22:59 Oxygen Delivery Method Room Air 06/12/24 22:59 Medical Decision Making MDM Narrative Medical decision making narrative: Very pleasant 88-year-old male returning to the ER today with acute urinary retention. He has had a recent urinary retention and just had his Mccrary catheter removed PCP clinic today. He has not been able to void now for about 9 hours prior to presentation. He is feeling suprapubic discomfort and bedside bladder scan does reveal a urine volume of 400-500 mL. Symptoms suggestive for acute urinary retention. Suspect likely due to underlying BPH. He is actually planning to start Flomax tomorrow. For tonight, as he is unable to urinate, he required placement of a Mccrary catheter. After placement of a catheter we had in excess of 500 mL of clear yellow urine out. He feels better after placement of the catheter Discussed catheter management, hydration, starting Flomax, and need for follow-up with the patient and with his family. They verbalized their understanding. They are comfortable with plan to discharge. Discharge Plan Discharge Clinical Impression: Acute retention of urine Patient Disposition: Home, Self-Care Condition: Stable Instructions: Urinary Retention in Men (ED), Mccrary Catheter Placement and Care (ED) Additional Instructions: As we discussed, if you have any concerns, please come back to the ER right away. Please finish up your antibiotics as prescribed. Start on the Flomax tomorrow. Remember to treat the Mccrary catheter gently. Avoid tugging or pulling on the Mccrary catheter tubing. Be sure to empty the leg bag whenever it is getting full to avoid back flow of urine into your bladder. Please follow-up with your PCP in the [facility] next week the tab the Mccrary catheter removed and do another trial of voiding. To follow-up with Urology, you can call [place] [facility] as [phone]. Prescriptions: No Action amoxicillin 875 mg tablet pantoprazole 20 mg tablet,delayed release (DR/EC) 20 mg PO DAILY simvastatin 20 mg tablet 20 mg PO QPM metoprolol succinate 25 mg tablet extended release 24 hr 25 mg PO DAILY fluticasone furoate-vilanterol [Breo Ellipta] 100-25 mcg/dose blister with device 1 ea INHALATION DAILY amlodipine 2.5 mg tablet 2.5 mg PO DAILY albuterol sulfate 90 mcg/actuation HFA aerosol inhaler 1 - 2 puff INHALATION Q4H PRN (Reason: dyspnea) cephalexin 500 mg tablet 500 mg PO TID Qty: 15 0RF Follow Up/Referrals: Alex Osorio MD [Primary Care Provider] - Stand Alone Forms: Sazze Info Instructions
--- OUTSIDE RECORDS SUMMARY | 2024-06-12 23:50 | XMS_ITS | Clinical Summary ---
Author Organization [employer] [facility] Address [address] [place] [address] Care Team Providers Care High Speed Warper Tender Name Role Phone Alex Osorio MD Primary Care Provider [phone]- [phone] Allergies No known active allergies Medications ZINC [...] IV sedation 2. US guided access bilateral [employer] 3. Abdominal aortogram 4. 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 Tobacco use disorder 022 Overview (04/07/2018): Quit smoking 01/2018 Encounters Date Type Department Care Team Description 06/12/2024 9:00 AM REGISTER OF WILLS Nurse/Clinic Staff Only [facility] [address] [place] [address] Removal (Mccrary catheter) 06/12/2024 Travel 06/10/2024 Travel 06/09/2024 11:45 AM REGISTER OF WILLS Office [place] [facility] [address] [address] Alex Osorio MD Hospital F/U 06/09/2024 Travel 06/06/2024 Orders Only [facility] HIM SERVICES Scanner 1 scan: (1-Ord) [facility], MULTIPLE LABS, 06/06/2024 06/04/2024 Travel 06/03/2024 [place]ill [facility] [place] [address] [address] [address] Alex Osorio MD Refill Request (Albuterol Hfa) 06/03/2024 Nurse Triage [facility] [place] [address] [address] Alex Osorio MD Pain On Urination 04/30/2024 [address] [facility] [address] [address] [address] Alex Osorio MD Drivers License 04/21/2024 8:44 AM REGISTER OF WILLS - 04/21/2024 11:59 PM REGISTER OF WILLS Hospital Encounter [facility] - Drivers [place] [address] [place] [address] Ervin Becerril OT 04/21/2024 Travel 03/27/2024 Telephone [facility] [address] [place], [place] [id number] Alex Osorio MD Questions (question) from Last [...] Mother Hypertension Sister 2 Other Sister 3 Chester's disea se Cancer-colon No Family History Relation [...] on file Legal Sex Male 5:24 AM [employer]ISTER OF WILLS Gender Identity Not on file Sexual Orientation Not on file Obstetrics History Last Filed Vital Signs Vital Sign Reading Time Taken Comments Blood Pressure 123/78 06/09/2024 11:41 AM [employer]ISTER OF WILLS Pulse 91 06/09/2024 11:41 AM REGISTER OF WILLS Temperature 36.8 C (98.3 F) 04/20/2022 10:07 AM REGISTER OF WILLS Respiratory Rate 16 08/03/2021 2:24 PM CDT Oxygen Saturation 97% 06/09/2024 11:41 AM REGISTER OF WILLS Inhaled Oxygen Concentration - - Weight 87 kg (191 lb 12.8 oz) 06/09/2024 11:41 A M [employer] WILLS Height 168.5 cm (5' 6.34) 12/02/2023 1:34 PM CD T Body Mass Index 30.64 12/02/2023 1:34 PM CDT Plan of Treatment Upcoming Encounters Date Type Department Care Team (Late st Contact Info) Description 11/24/2024 9:30 AM CDT Office Visit [facility] [address] [place] [address] Aki Agudelo III, PhD, [address] [address] [place] [address] Health Maintenance Due Date Last Done Comments [...] history exists Medical Devices Implanted Type Area Filtration Plant Operator Device Identifier Shelf Expiration Date Model / Serial / Lot Stent Aaa 24x82 Endurant 2 Limb Iliac - [id number] Implanted:Qty: 1 on 08/04/2018 by Harsha Escoto MD at [facility] N/A: Aorta Medtronic Aortic Intervention 01/03/2019 [id number]# / [id number] / Graft Stent Aaa Endurant 23x70 Implanted:Qty: 1 on 08/04/2018 by Harsha Escoto MD at [facility] N/A: Aorta Medtronic Aortic Intervention 12/10/2019 [id number] / [id number] / Procedures Procedure Name Priority Date/Time Associated Diagnosis Comments SCAN-LABORATORY REPORT 06/06/2024 12:00 AM REGISTER OF WILLS from Last 3 Months Results * SCAN-LABORATORY REPORT (06/06/2024 12:00 AM REGISTER OF WILLS) us Scanner OTHER Final Result from Last 3 Months Insurance MEDICARE PB ONLY MEDICARE PART B HB [place] [id number] MEDICARE PART A HB ONLY Advance Directives Documents on File Type Date Recorded 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
== END 2024-06-12 23:54 | disposition home or self-care (01) ==
LOC: ED 23:47
PROVIDERS: Emergency Provider Emergency Medicine; PCP Surgery
DX: R33.9 Retention of urine, unspecified (principal)
CPT/HCPCS: 51702; 99282; 99283

== ENCOUNTER 2024-06-14 20:07 | Emergency (ER) | payer MEDICARE, OTHER, SELFPAY ==
--- OUTSIDE RECORDS SUMMARY | 2024-06-14 20:09 | XMS_ITS | Clinical Summary ---
Author Organization [employer] [facility] Address [address] [place] [address] Care Team Providers Care Heavy Equipment Service Technician Name Role Phone Alex Osorio MD Primary Care Provider [phone]- [phone] Allergies No known active allergies Medications ZINC [...] IV sedation 2. US guided access bilateral MDM SR 3. Abdominal aortogram 4. 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 HIM SERVICES Scanner 1 scan: (1-Ord) [facility], MULTIPLE LABS, 06/06/2024 06/04/2024 Travel 06/03/2024 Refill [facility] [place] [address] [address] Alex Osorio MD Refill Request (Albuterol Hfa) 06/03/2024 Nurse Triage [facility] [place] [address] [address] Alex Osorio MD Pain On Urination 04/30/2024 Telephone [facility] [place] [address] [address] Alex Osorio MD Drivers License 04/21/2024 8:44 AM NOVELTY WORKER - 04/21/2024 11:59 PM NOVELTY WORKER Hospital Encounter [facility] - Drivers [place] [address] [place] [address] Ervin Becerril OT 04/21/2024 Travel 03/27/2024 Telephone [facility] [address] [place], [place] [phone] Alex Osorio MD Questions (question) from Last [...] Mother Hypertension Sister 2 Other Sister 3 Gardner's disea se Cancer-colon No Family History Relation [...] on file Legal Sex Male 5:24 AM NOVELTY WORKER Gender Identity Not on file Sexual Orientation Not on file Obstetrics History Last Filed Vital Signs Vital Sign Reading Time Taken Comments Blood Pressure 123/78 06/09/2024 11:41 AM NOVELTY WORKER Pulse 91 06/09/2024 11:41 AM NOVELTY WORKER Temperature 36.8 C (98.3 F) 04/20/2022 10:07 AM NOVELTY WORKER Respiratory Rate 16 08/03/2021 2:24 PM CDT Oxygen Saturation 97% 06/09/2024 11:41 AM NOVELTY WORKER Inhaled Oxygen Concentration - - Weight 87 kg (191 lb 12.8 oz) 06/09/2024 11:41 A M NOVELTY WORKER Height 168.5 cm (5' 6.34) 12/02/2023 1:34 PM CD T Body Mass Index 30.64 12/02/2023 1:34 PM CDT Plan of Treatment Upcoming Encounters Date Type Department Care Team (Late st Contact Info) Description 11/24/2024 9:30 AM CDT Office Visit [facility] [address] [place] [address] Aki Agudelo III, PhD, [address] [address] [place] [address] Health Maintenance Due Date Last Done Comments [...] history exists Medical Devices Implanted Type Area Clock And Watch Hands Dipper Device Identifier Shelf Expiration Date Model / Serial / Lot Stent Aaa 24x82 Endurant 2 Limb Iliac - [id number] Implanted:Qty: 1 on 08/04/2018 by Harsha Escoto MD at [facility] N/A: Aorta Medtronic Aortic Intervention 01/03/2019 [id number]# / [id number] / Graft Stent Aaa Endurant 23x70 Implanted:Qty: 1 on 08/04/2018 by Harsha Escoto MD at [facility] N/A: Aorta Medtronic Aortic Intervention 12/10/2019 [id number] / [id number] / Procedures Procedure Name Priority Date/Time Associated Diagnosis Comments SCAN-LABORATORY REPORT 06/06/2024 12:00 AM NOVELTY WORKER from Last 3 Months Results * SCAN-LABORATORY REPORT (06/06/2024 12:00 AM NOVELTY WORKER) us Scanner OTHER Final Result from Last 3 Months Insurance MEDICARE PB ONLY MEDICARE PART B HB [place] [id number] MEDICARE PART A HB ONLY Advance Directives Documents on File Type Date Recorded 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
[2024-06-14 20:28] VITALS: BP 146/95; PULSE 87; RESP 18; TEMP 37.1; O2SAT 97; BMI 24.4
--- NOTE | 2024-06-14 20:28 | ED.MALEGU ---
HPI - Male Genitourinary General Time Seen by Provider: 20:29 Date Seen: 06/14/24 Chief complaint: Urogenital Problems, Male Stated complaint: Catheter fell out Time Seen by Provider: 06/14/24 20:28 Source: patient, family, RN notes reviewed and old records reviewed Mode of arrival: ambulatory Limitations: no limitations History of Present Illness HPI Narrative: 88-year-old male who presents today with Mccrary catheter dislodgement. Patient had catheter placed couple days ago, it fell out today. They did try to leave it out today but patient has not been able avoid, says he has some penile pain and does have sensation eating avoid but not completely emptying his bladder. No abdominal pain otherwise. No fevers or chills. Additional history from patient's daughter Related Data Home Medications ?Medication ?Instructions ?Recorded ?Confirmed fluticasone furoate 100 1 ea inhalation DAILY 03/03/23 06/10/24 mcg-vilanterol 25 mcg/dose inhalation powder (Breo Ellipta) metoprolol succinate 25 mg 25 mg PO DAILY 03/03/23 06/10/24 tablet,extended release 24 hr pantoprazole 20 mg tablet,delayed 20 mg PO DAILY 03/03/23 06/10/24 release simvastatin 20 mg tablet 20 mg PO QPM 03/03/23 06/10/24 albuterol sulfate 90 mcg/actuation 1 - 2 puff inhalation Q4H PRN 01/06/24 06/10/24 aerosol inhaler dyspnea amlodipine 2.5 mg tablet 2.5 mg PO DAILY 01/06/24 06/10/24 amoxicillin 875 mg tablet mg 06/10/24 Previous Rx's ?Medication ?Instructions ?Recorded cephalexin 500 mg tablet 500 mg PO TID #15 tabs 06/03/24 Allergies Allergy/AdvReac Type Severity Reaction Status Date / Time No Known Drug Allergies Allergy Verified 06/10/24 10:59 PFSH PFS Social History Smoking Status: Never smoker Do you use any of these nicotine containing products: None Second hand tobacco smoke exposure: No How often do you have a drink containing alcohol: never How often do you have six or more drinks on one occasion: Never AUDIT-C Alcohol total score: 0 Non-prescribed substance use: denies use service: No Exam Narrative: Exam Narrative: General: well nourished , NAD Head: Atraumatic and normocephalic ENT: External ears and external nose are normal Eyes: Conjunctiva clear, pupils are equal reactive, external ocular motions are intact Neck: Full spontaneous range of motion of the neck Lungs: No respiratory distress Musculoskeletal: No tenderness or deformity Neurologic: No gross focal neurologic deficits Skin: No rashes Psych: Mood and affect are appropriate Course Course ED Course: Reviewed most recent emergency department visit from June 03 the patient was seen for urinary retention, at that time bladder scan over 600 mL and catheter was placed, patient started on antibiotics for urinary tract infection. Subsequently had the catheter removed in clinic June 12 and was able to void immediately after, however re-presented to the emergency department that evening with urinary retention new catheter was placed. Patient presents today with catheter dislodgement. As this was just placed couple days ago and patient just started Flomax, and patient does seem to be retaining based on history and exam, repeat catheter will be replaced. They do have a referral for outpatient Urology follow-up. Discharge Plan Discharge Clinical Impression: Urinary catheter complication, Acute retention of urine Patient Disposition: Home w/ Parent or Adult Condition: Stable Instructions: Mccrary Catheter Placement and Care (ED), How to Change a Catheter Drainage Bag (DC) Additional Instructions: Call for follow-up with urology Take Flomax as prescribed Activity Level: Activity as Tolerated Discharge Diet: Regular Prescriptions: No Action amoxicillin 875 mg tablet pantoprazole 20 mg tablet,delayed release (DR/EC) 20 mg PO DAILY simvastatin 20 mg tablet 20 mg PO QPM metoprolol succinate 25 mg tablet extended release 24 hr 25 mg PO DAILY fluticasone furoate-vilanterol [Breo Ellipta] 100-25 mcg/dose blister with device 1 ea INHALATION DAILY amlodipine 2.5 mg tablet 2.5 mg PO DAILY albuterol sulfate 90 mcg/actuation HFA aerosol inhaler 1 - 2 puff INHALATION Q4H PRN (Reason: dyspnea) cephalexin 500 mg tablet 500 mg PO TID Qty: 15 0RF Follow Up/Referrals: Alex Osorio MD [Primary Care Provider] - Stand Alone Forms: [employer] Info Instructions
[2024-06-14] MEDS: lidocaine HCL 2 % JELLY (TOP) STERILE 6 ML UR (20:48)
--- OUTSIDE RECORDS SUMMARY | 2024-06-14 21:03 | XMS_ITS | Clinical Summary ---
Author Organization [employer] Address [address] [place] [address] Care Team Providers Care Early Childhood Coordinator Name Role Phone Alex Osorio MD Primary Care Provider [phone] Allergies No known active allergies Medications ZINC [...] IV sedation 2. US guided access bilateral COUNTER TACKER 3. Abdominal aortogram 4. 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 Nurse/Clinic Staff Only [facility] [address] [place] [address] Removal (Mccrary catheter) 06/12/2024 Travel 06/10/2024 Travel 06/09/2024 11:45 AM WATER RECLAMATION SYSTEMS OPERATOR Office Visit [facility] [place] [address] [address] Alex Osorio MD Hospital F/U 06/09/2024 Travel 06/06/2024 Orders Only [facility] Scanner 1 scan: (1-Ord) [facility], 06/06/2024 06/04/2024 Travel 06/03/2024 Refill [facility] [place] [address] [address] Alex Osorio MD Refill Request (Albuterol Hfa) 06/03/2024 Nurse Triage [facility] [place] [address] [address] Alex Osorio MD Pain On Urination 04/30/2024 Telephone [facility] [place] [address] [address] Alex Osorio MD Drivers License 04/21/2024 8:44 AM WATER RECLAMATION SYSTEMS OPERATOR - 04/21/2024 11:59 PM WATER RECLAMATION SYSTEMS OPERATOR Hospital Encounter [facility] - Drivers [place] [address] [place] [address] Ervin Becerril OT 04/21/2024 Travel 03/27/2024 Telephone [facility] [address] [place], [place] [id number] Alex Osorio MD Questions (question) from Last [...] Mother Hypertension Sister 2 Other Sister 3 [place]'s disea se Cancer-colon No Family History Relation [...] on file Legal Sex Male 5:24 AM WATER RECLAMATION SYSTEMS OPERATOR Gender Identity Not on file Sexual Orientation Not on file Obstetrics History Last Filed Vital Signs Vital Sign Reading Time Taken Comments Blood Pressure 123/78 06/09/2024 11:41 AM WATER RECLAMATION SYSTEMS OPERATOR Pulse 91 06/09/2024 11:41 AM WATER RECLAMATION SYSTEMS OPERATOR Temperature 36.8 C (98.3 F) 04/20/2022 10:07 AM WATER RECLAMATION SYSTEMS OPERATOR Respiratory Rate 16 08/03/2021 2:24 PM CDT Oxygen Saturation 97% 06/09/2024 11:41 AM WATER RECLAMATION SYSTEMS OPERATOR Inhaled Oxygen Concentration - - Weight 87 kg (191 lb 12.8 oz) 06/09/2024 11:41 A M WATER RECLAMATION SYSTEMS OPERATOR Height 168.5 cm (5' 6.34) 12/02/2023 1:34 PM CD T Body Mass Index 30.64 12/02/2023 1:34 PM CDT Plan of Treatment Upcoming Encounters Date Type Department Care Team (Late st Contact Info) Description 11/24/2024 9:30 AM CDT Office Visit [facility] [address] [place] [address] Aki Agudelo III, PhD, [address] [address] [place] [address] Health Maintenance Due Date Last Done Comments [...] history exists Medical Devices Implanted Type Area Harmonica Maker Device Identifier Shelf Expiration Date Model / Serial / Lot Stent Aaa 24x82 Endurant 2 Limb Iliac - [id number] Implanted:Qty: 1 on 08/04/2018 by Harsha Escoto MD at [facility] N/A: Aorta Medtronic Aortic Intervention 01/03/2019 [id number]# / [id number] / Graft Stent Aaa Endurant 23x70 Implanted:Qty: 1 on 08/04/2018 by Harsha Escoto MD at [facility] N/A: Aorta [employer] Aortic Intervention 12/10/2019 [id number] / [id number] / Procedures Procedure Name Priority Date/Time Associated Diagnosis Comments SCAN-LABORATORY REPORT 06/06/2024 12:00 AM WATER RECLAMATION SYSTEMS OPERATOR from Last 3 Months Results * SCAN-LABORATORY REPORT (06/06/2024 12:00 AM WATER RECLAMATION SYSTEMS OPERATOR) us Scanner OTHER Final Result from Last 3 Months Insurance MEDICARE PB ONLY MEDICARE PART B HB ONLY [place] [address] [id number] MEDICARE PART A HB ONLY Advance Directives Documents on File Type Date Recorded 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
== END 2024-06-14 21:21 | disposition home or self-care (01) ==
LOC: ED 21:01
PROVIDERS: Emergency Provider Family Medicine; PCP Surgery
DX: R33.9 Retention of urine, unspecified (principal); T83.028A Displacement of other urinary catheter, initial encounter
CPT/HCPCS: 51702; 99283; 99284

== ENCOUNTER 2024-06-19 10:49 | Emergency (ER) | payer MEDICARE, OTHER, SELFPAY ==
[2024-06-19 12:25] VITALS: BP 149/85; PULSE 118; RESP 20; TEMP 36.8; O2SAT 96; BMI 27.3
--- NOTE | 2024-06-19 12:47 | ED.GENADULT ---
HPI - General Adult General Time Seen by Provider: 12:47 Date Seen: 06/19/24 Chief complaint: Urogenital Problems, Male Stated complaint: Needs catheter replacement Time Seen by Provider: 06/19/24 12:46 Source: patient and RN notes reviewed Mode of arrival: ambulatory Limitations: no limitations History of Present Illness HPI narrative: This 88-year-old male is brought in as he accidentally pulled his catheter out during sleep. He has done this a couple times now. He most recently has had this catheter in for about 2 weeks, did see Urology yesterday. He has prostate enlargement. He had been on Flomax but the urologist just prescribed to different medicine yesterday. He will be going to [facility], they have a bed for him. He has been admitted to their facility. Up he denies any pain at this time, feels better. Nursing staff did put a Mccrary catheter in on arrival. Due to the volume and acuity in the ED, patient did wait for a little bit. Related Data Home Medications ?Medication ?Instructions ?Recorded ?Confirmed fluticasone furoate 100 1 ea inhalation DAILY 03/03/23 06/19/24 mcg-vilanterol 25 mcg/dose inhalation powder (Breo Ellipta) metoprolol succinate 25 mg 25 mg PO DAILY 03/03/23 06/19/24 tablet,extended release 24 hr pantoprazole 20 mg tablet,delayed 20 mg PO DAILY 03/03/23 06/19/24 release simvastatin 20 mg tablet 20 mg PO QPM 03/03/23 06/19/24 albuterol sulfate 90 mcg/actuation 1 - 2 puff inhalation Q4H PRN 01/06/24 06/19/24 aerosol inhaler dyspnea amlodipine 2.5 mg tablet 2.5 mg PO DAILY 01/06/24 06/19/24 tamsulosin 0.4 mg capsule (Flomax) 0.4 mg PO DAILY 06/19/24 06/19/24 Allergies Allergy/AdvReac Type Severity Reaction Status Date / Time No Known Drug Allergies Allergy Verified 06/19/24 12:32 Review of Systems Narrative: As per HPI. PFS PFS Social History Smoking Status: Never smoker Do you use any of these nicotine containing products: None Second hand tobacco smoke exposure: No How often do you have a drink containing alcohol: never How often do you have six or more drinks on one occasion: Never AUDIT-C Alcohol total score: 0 Non-prescribed substance use: denies use service: No Exam Const: Vital Signs, click to edit/add: Vital Signs - 24 hr 06/19/24 12:25 Temperature 98.2 F Pulse Rate [Pulse Oximeter] 118 H Respiratory Rate 20 Blood Pressure [Ri ght Upper Arm] 149/85 H Pulse Oximetry 96 Oxygen Delivery Me thod Room Air Patient is alert, interactive, no apparent distress. He is lying on the bed, he has Mccrary catheter replaced with a leg bag. There is no hematuria that is noted on visualization of the urine. Abdomen is soft, nontender, nondistended, no rebound or guarding, no masses or organomegaly noted. Documenting provider has reviewed patient's vital signs: yes Course Vital Signs Vital signs: Initial Vital Signs Temperature 98.2 F 06/19/24 12:25 Temperature Source Temporal Artery Scan 06/19/24 12:25 Pulse Rate 118 H 06/19/24 12:25 Respiratory Rate 20 06/19/24 12:25 Blood Pressure 149/85 H 06/19/24 12:25 Blood Pressure Mean 106 H 06/19/24 12:25 Blood Pressure Position Sitting 06/19/24 12:25 Pulse Oximetry 96 06/19/24 12:25 Oxygen Delivery Method Room Air 06/19/24 12:25 Vital Signs Temperature 98.2 F 06/19/24 12:25 Pulse Rate 118 H 06/19/24 12:25 Respiratory Rate 20 06/19/24 12:25 Blood Pressure 149/85 H 06/19/24 12:25 Pulse Oximetry 96 06/19/24 12:25 Oxygen Delivery Method Room Air 06/19/24 12:25 Temperature 98.2 F 06/19/24 12:25 Pulse Rate 118 H 06/19/24 12:25 Respiratory Rate 20 06/19/24 12:25 Blood Pressure 149/85 H 06/19/24 12:25 Pulse Oximetry 96 06/19/24 12:25 Oxygen Delivery Method Room Air 06/19/24 12:25 Discharge Plan Discharge Clinical Impression: Dislodged Mccrary catheter Patient Disposition: Home, Self-Care Condition: Stable Instructions: Mccrary Catheter Placement and Care (ED) Activity Level: Activity as Tolerated Prescriptions: No Action pantoprazole 20 mg tablet,delayed release (DR/EC) 20 mg PO DAILY simvastatin 20 mg tablet 20 mg PO QPM metoprolol succinate 25 mg tablet extended release 24 hr 25 mg PO DAILY fluticasone furoate-vilanterol [Breo Ellipta] 100-25 mcg/dose blister with device 1 ea INHALATION DAILY amlodipine 2.5 mg tablet 2.5 mg PO DAILY albuterol sulfate 90 mcg/actuation HFA aerosol inhaler 1 - 2 puff INHALATION Q4H PRN (Reason: dyspnea) tamsulosin [Flomax] 0.4 mg capsule 0.4 mg PO DAILY Follow Up/Referrals: Alex Osorio MD [Primary Care Provider] - Stand Alone Forms: [employer] Info Instructions
== END 2024-06-19 13:41 | disposition home or self-care (01) ==
LOC: ED 13:17
PROVIDERS: Emergency Provider Family Medicine; PCP Surgery
DX: T83.028A Displacement of other urinary catheter, initial encounter (principal)
CPT/HCPCS: 51702; 99282; 99283

== ENCOUNTER 2024-08-04 15:32 | Emergency (ER) | payer MEDICARE, OTHER, SELFPAY ==
--- OUTSIDE RECORDS SUMMARY | 2024-08-04 15:35 | XMS_ITS | Clinical Summary ---
Author Organization [facility] Address [address] [place] [id number] Care Team Providers Care Goldsmith Apprentice Name Role Phone Alex Osorio MD Primary Care Provider [phone] Allergies No known active allergies Medications ZINC [...] once daily. 90 Tablet 3 024 Active tamsulosin 0.4 mg capsuleIndicati ons:BPH without urinary obstruction Take 1 Capsule (0.4 mg) by mouth once daily after a meal. 90 Capsule 3 025 Active finasteride (PROSCAR) 5 mg tabletIndicatio ns:Urinary retention Take 1 Tablet (5 mg) by mouth once daily in the morning. 90 Tablet 2 025 Active albuterol HFA 90 mcg/actuation inhalerIndicati ons:COPD mixed type (HC) INHALE 1 TO 2 PUFFS BY MOUTH EVERY 4 HOURS NEEDED FOR SHORTNESS OF BREATH 6.7 g 025 Active albuterol HFA (PRO-AIR; VENTOLIN; PROVENTIL) 90 mcg/actuation inhalerIndicati ons:COPD mixed type (HC) INHALE 1 TO 2 PUFFS BY MOUTH EVERY 4 HOURS NEEDED FOR SHORTNESS OF BREATH 6.7 g 025 2024 Discontinued Active Problems Problem Noted Date Diagnosed Date Moderate dementia without behavioral disturbance 06/17/2024 Urinary retention 06/17/2024 LBBB (left bundle branch block) 07/05/2021 SVT (supraventricular tachycardia) 07/05/2021 Mitral valve insufficiency 07/05/2021 COPD mixed type 05/12/2021 Abdominal aortic aneurysm (AAA) without rupture 08/04/2018 Overview (08/05/2018): 08/04/18- Dr. Escoto 1. Mod IV sedation 2. US guided access bilateral STONE SAWYER 3. Abdominal aortogram 4. 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 [place] [address] Omari Isaac MD Questions (Blood in catheter bag.) 08/01/2024 Travel 07/24/2024 Telephone [facility] 100 [facility] [address] Omari Isaac MD Outside Order (Written orders) 07/23/2024 12:00 PM CDT Procedure Only [facility] 100 [place] [address] Omari Isaac MD Follow Up; Procedure (cystoscopy ) 07/23/2024 Travel 07/21/2024 Refill [facility] [address] [place] [address] Alex Osorio MD Refill Request (Albuterol Hfa) 07/18/2024 Travel 07/15/2024 10:06 AM CDT - 07/15/2024 11:59 PM CDT Hospital Encounter [address] [place] [address] Eric Alvarez MD Elevated PSA 07/15/2024 Travel 07/08/2024 11:00 AM CDT - 07/08/2024 11:59 PM CDT Hospital Encounter [address] [place] [address] Eric Alvarez MD Elevated PSA 07/08/2024 Travel 06/28/2024 Refill [facility] [address] [place] [address] Alex Osorio MD Refill Request (Albuterol Hfa) 06/22/2024 Orders Only [facility] [address] [place] [address] Eric Alvarez MD <No scans attached> 06/22/2024 Telephone [facility] [address] [facility] [place] [address] Alex Osorio MD OTHER (medical supplies) 06/18/2024 3:00 PM ALIGNING CHECKER Office Visit [facility] [address] [place] [address] Nirav Arguelles MD Urinary Problem (unable to urinate; ED visit in May; cath placed; started flomax 10 days ago; has had this cath in since 06/12/24; mostly cathed since 06/03; ) 06/18/2024 Travel 06/17/2024 Patient Outreach [facility] Care Management - Advanced Care Team [address] [place] [address] Bisi Leger Complex Care Management (ACO REACH ENGAGEMENT OUTREACH) 06/16/2024 Travel 06/16/2024 Patient Outreach [facility] Care Management - Care Management Navigation/[facility] [address] [place] [address] Korin Lo Care Management Intake (ACO Reach) 06/15/2024 Telephone [facility] [address] [place] [address] Alex Osorio MD Questions (ASSISTED LIVING// REQUEST CALL BACK ) 06/12/2024 9:00 AM ALIGNING CHECKER Nurse/Clinic Staff Only [facility] [address] [place] [address] Removal (Mccrary catheter) 06/12/2024 Travel 06/10/2024 Travel 06/09/2024 11:45 AM ALIGNING CHECKER Office Visit [facility] [address] [place] [address] Alex Osorio MD Hospital F/U 06/09/2024 Travel 06/06/2024 Orders Only [facility] HIM SERVICES Scanner 1 scan: (1-Ord) [facility], 06/06/2024 06/04/2024 Travel 06/03/2024 Refill [facility] [address] [place] [address] Alex Osorio MD Refill Request (Albuterol Hfa) 06/03/2024 Nurse Triage [facility] [address] [place] [address] Alex Osorio MD Pain On Urination from Last 3 Months Immunizations Immunization Administration Dates Next Due COVID-19 VACCINE SPIKEVAX (M ODERNA 50MCG/0.5ML) 12YO+ PFS 01/02/2024 COVID-19 vaccine (OkCupid-Bio NTech 30mcg/0.3mL) LILIAN CHAPMAN 06/18/2020,05/28/2020 Influenza A (H1N1), Inactivated 05/10/2009 Influenza A (H1N1), Inactiva salazar (Age >=3 Years) 03/01/2010,05/10/2009 Influenza, High-dose Inactivated 01/15/2024,09/2016,03/25/2015 Influenza, High-dose Quadriv alent Inactivated 01/30/2023,01/08/2022 Influenza, [...] Mother Hypertension Sister 2 Other Sister 3 [place]'s disea se Cancer-colon No Family History Relation [...] on file Legal Sex Male 5:24 AM ALIGNING CHECKER Gender Identity Not on file Sexual Orientation Not on file Obstetrics History Last Filed Vital Signs Vital Sign Reading Time Taken Comments Blood Pressure 136/82 06/18/2024 3:16 PM ALIGNING CHECKER Pulse 87 06/18/2024 3:16 PM ALIGNING CHECKER Temperature 36.8 C (98.3 F) 04/20/2022 10:07 AM ALIGNING CHECKER Respiratory Rate 16 08/03/2021 2:24 PM CDT Oxygen Saturation 98% 06/18/2024 3:16 PM ALIGNING CHECKER Inhaled Oxygen Concentration - - Weight 85.8 kg (189 lb 1.6 oz) 06/18/2024 3:16 P M ALIGNING CHECKER Height 168.5 cm (5' 6.34) 12/02/2023 1:34 PM CD T Body Mass Index 30.21 12/02/2023 1:34 PM CDT Plan of Treatment Upcoming Encounters Date Type Department Care Team (Late st Contact Info) Description 08/05/2024 2:40 PM CDT Office Visit [facility] [address] [place] [address] Nirav Newberry MD [address] [place] [address] 08/14/2024 12:00 PM CDT Appointment [facility] Medical Imaging [address] [place], [place] [id number] 11/24/2024 9:30 AM CDT Office Visit [facility] [address] [place] [address] Aki Agudelo III, PhD, [address] [facility] [address] [place] [address] Health Maintenance Due Date Last Done Comments RSV vaccine for adults or (1 - 1-dose 75+ series) 2012 Tetanus booster 10/22/2023 10/21/2013, 02/15/2004 COVID-19 vaccine series ( season) 2024 01/02/2024, 01/30/2023, 01/08/2022, Additional history exists BMI (ht and wt on same day) for age 18+ 12/01/2024 12/02/2023, 11/30/2022, 08/21/2021, Additional history exists Medicare Wellness for age 65+ 12/02/2024, 11/30/2022, 08/21/2021, Additional history exists Depression screening for age 12+ 12/03/2024 12/04/2023, 12/04/2023, 12/04/2023, Additional history exists Tdap Completed 10/21/2013 Pneumococcal series for age 50+ Completed 10/28/2014, 04/12/2005, 02/15/2004 Zoster (shingles) series for age 50+ Completed 09/10/2018, 06/27/2018, 11/07/2006 Influenza Vaccine Completed 01/15/2024, , 02/06/2021, Additional history exists Medical Devices Implanted Type Area Program Specialist Device Identifier Shelf Expiration Date Model / Serial / Lot Stent Aaa 24x82 Endurant 2 Limb Iliac - [id number] Implanted:Qty: 1 on 08/04/2018 by Harsha Escoto MD at [facility] N/A: Aorta Medtronic Aortic Intervention 01/03/2019 [id number]# / [id number] / Graft Stent Aaa Endurant 23x70 Implanted:Qty: 1 on 08/04/2018 by Harsha Escoto MD at [facility] N/A: Aorta Medtronic Aortic Intervention 12/10/2019 [id number] / [id number] / Procedures Procedure Name Priority Date/Time Associated Diagnosis Comments MI DONNA POST-VOIDING RESIDUAL URINE&/BLADDER CAP Routine 07/23/2024 12:00 AM CDT Urinary retention NM BONE SCAN WHOLE BODY MELLO 07/15/2024 1:20 PM CDT Elevated PSA CREATININE,ISTAT Routine 07/08/2024 11:[address] CHEST ABDOMEN PELVIS W MELLO 07/08/2024 11:11 AM CDT Elevated PSA PSA TOTAL Routine 06/18/2024 3:58 PM ALIGNING CHECKER BPH with urinary obstruction SCAN-LABORATORY REPORT 06/06/2024 12:00 AM ALIGNING CHECKER from Last 3 Months Results * MI DONNA POST-VOIDING RESIDUAL URINE&/BLADDER CAP (07/23/2024 12:00 AM CDT) Omari Isaac MD PB - URINARY SYSTEM SERVICES F inal Result * NM BONE SCAN WHOLE BODY (07/15/2024 1:20 PM CDT) Anatomical Region Laterality Modality SKELETON Other Narrative 07/16/2024 3:18 PM CDT For Patients: As a result of the Cures Act, medical imaging exams and procedure reports are released immediately into your electronic medical record. You may view this report before your referring provider. If you have questions, please contact your health care provider. NM Bone Scan: Technique: Radiopharmaceutical Tc-99m MDP 27.3 MCi IV, left antecubital. Post-injection imaging delay: Approximately 3 hours. Whole body anterior and posterior planar images were obtained. Clinical information: 88-year-old man. History of prostate cancer. Comparison: CT chest abdomen and pelvis 07/08/2024. Findings: Bone lesions: No scintigraphic evidence of osseous metastatic disease. Photopenia in the right hip consistent with right hip arthroplasty. Degenerative appearing changes in the spine, shoulders, knees, ankles, and feet. Excreted radiotracer in the kidneys and bladder. Impression: No evidence of osseous metastatic disease. Signed by: Héctor Charles MD @07/16/2024 10:57:14 AM Eric Alvarez MD NM Final Result * (ABNORMAL) CREATININE,ISTAT (07/08/2024 11:13 AM CDT) CREATININE, POCT 0.90 0.57 - 1.11 mg/dL 07/08/2024 11:16 AM CDT [facility] Comment:Caution: Patients ta pratima Hydroxyurea have falsely increased iStat Creatinine results. Verify creatinine results ordering a Creatinine (67469.2) eGFR 83(L) >90 mL/min/1.7 3m2 07/08/2024 11:16 AM CDT [facility] Comment:As of 2021, eG FR is calculated by the CKD-EPI creatinine equation without race adjustment. eGFR can be influenced by muscle mass, exercise, and diet. The reported eGFR is an estimation only and is only applicable if the renal function is stable. Blood BLOOD SPECIMEN / Unknown 07/08/2024 11:13 AM CDT 07/08/2024 11:16 AM CDT Eric Alvarez MD CHEMISTRY Final Result Performing Organization Address City/State/[facility] Co de Phone Number [facility] [address] [place] [address] * CT CHEST ABDOMEN PELVIS W (07/08/2024 11:11 AM CDT) Anatomical Region Laterality Modality Abdomen, Pelvis, AORTA, LIVER, SPLEEN, CHEST Computed Tomography 07/09/2024 7:20 AM CDT Impressions 07/09/2024 7:20 AM CDT 1. CHEST: No evidence of metastatic disease. 2. ABDOMEN: No evidence of metastatic disease. Abdominal aortic aneurysm status post endovascular repair with hooper bay sac unchanged in size. 3. PELVIS: Not well evaluated due to streak artifact from bilateral hip orthopedic hardware. The prostate is enlarged. No visible adenopathy or directly visible mass within the pelvis. 4. OSSEOUS STRUCTURES: No evidence of osseous metastatic disease 5. Other incidental and nonacute appearing findings as discussed in the body of the report Please note that all CT scans at this facility use dose modulation, iterative reconstruction, and/or weight-based dosing when appropriate to reduce radiation dose to as low as reasonably achievable. Dictated by Jaren Frias MD @ 07/09/2024 7:20:25 AM (Electronically Signed) Narrative 07/09/2024 7:20 AM CDT For Patients: As a result of the Century Cures Act, medical imaging exams and procedure reports are released immediately into your electronic medical record. You may view this report before your referring provider. If you have questions, please contact your health care provider. INDICATION: Elevated PSA. Concern for metastatic prostate carcinoma. COMPARISON: September 11, 2023 TECHNIQUE: CT examination of the chest, abdomen and pelvis was performed following the uneventful intravenous administration of 100 cc of Omnipaque 300. Thin section axial images were obtained from the thoracic inlet through the pubic symphysis. Oral contrast was not administered. Sagittal and coronal reformatted imaging was performed Please note that all CT scans at this facility use dose modulation, iterative reconstruction, and/or weight-based dosing when appropriate to reduce radiation dose to as low as reasonably achievable. FINDINGS: CHEST: The heart size is normal. There is no mediastinal or hilar adenopathy or mass. There is no pericardial effusion. There are atherosclerotic vascular calcifications. The lungs show no focal consolidation, infiltrate or mass. No pleural effusion or pneumothorax. Minimal basilar atelectasis. ABDOMEN AND PELVIS: LIVER/BILIARY SYSTEM:The liver is normal in size and configuration. There is no focal mass and there is no intra- or extra hepatic biliary ductal dilatation.The gall bladder appears normal. ADRENALS: No significant abnormality KIDNEYS, URETERS and BLADDER:No renal mass. No hydronephrosis or hydroureter. The bladder is difficult to evaluate due to streak artifact in the pelvis and due to the fact that it is decompressed by Mccrary catheter. SPLEEN:Normal appearance. PANCREAS: Appears normal. RETROPERITONEUM and MESENTERY: No adenopathy. There is an abdominal aortic aneurysm status post endovascular repair. The hooper bay sac size is approximately 5.1 centimeters in diameter which is unchanged. Hyperdensities within the lumen are unchanged since prior noncontrast imaging suggesting that these are stable calcifications. GASTROINTESTINAL SYSTEM: There is no evidence of diverticulitis, colitis, mechanical obstruction, or appendicitis. The small bowel as visualized appears normal.Fecal retention. Diverticulosis PELVIS: The pelvis is poorly evaluated due to streak artifact from bilateral hip orthopedic instrumentation. The prostate is enlarged. It is difficult to evaluate the prostate further. There is no directly visible mass and there is no evidence of adenopathy in the pelvis.. OSSEOUS STRUCTURES and ABDOMINAL WALL: No lytic or blastic lesion to suggest osseous metastatic disease. Degenerative changes.No significant abdominal wall defect. OTHER: No free fluid or free air. Procedure Note Jaren Frias MD - 07/09/2024 For Patients: As a result of the Cures Act, medical imagingexams and procedure reports are released immediately into your electronicmedical record. You may view this report before your referring provider.If you have questions, please contact your health care provider. INDICATION: Elevated PSA. Concern for metastatic prostate carcinoma. COMPARISON: September 11, 2023 TECHNIQUE: CT examination of the chest, abdomen and pelvis was performed followingthe uneventful intravenous administration of 100 cc of Omnipaque 300. Thinsection axial images were obtained from the thoracic inlet through thepubic symphysis. Oral contrast was not administered. Sagittal and coronalreformatted imaging was performed Please note that all CT scans at this facility use dose modulation,iterative reconstruction, and/or weight-based dosing when appropriate toreduce radiation dose to as low as reasonably achievable. FINDINGS: CHEST: The heart size is normal. There is no mediastinal or hilar adenopathy ormass. There is no pericardial effusion. There are atherosclerotic vascularcalcifications. The lungs show no focal consolidation, infiltrate or mass. No pleuraleffusion or pneumothorax. Minimal basilar atelectasis. ABDOMEN AND PELVIS: LIVER/BILIARY SYSTEM:The liver is normal in size and configuration. Thereis no focal mass and there is no intra- or extra hepatic biliary ductaldilatation.The gall bladder appears normal. ADRENALS: No significant abnormality KIDNEYS, URETERS and BLADDER:No renal mass. No hydronephrosis orhydroureter. The bladder is difficult to evaluate due to streak artifactin the pelvis and due to the fact that it is decompressed by Foleycatheter. SPLEEN:Normal appearance. PANCREAS: Appears normal. RETROPERITONEUM and MESENTERY: No adenopathy. There is an abdominal aorticaneurysm status post endovascular repair. The hooper bay sac size isapproximately 5.1 centimeters in diameter which is unchanged.Hyperdensities within the lumen are unchanged since prior noncontrastimaging suggesting that these are stable calcifications. GASTROINTESTINAL SYSTEM: There is no evidence of diverticulitis, colitis,mechanical obstruction, or appendicitis. The small bowel as visualizedappears normal.Fecal retention. Diverticulosis PELVIS: The pelvis is poorly evaluated due to streak artifact frombilateral hip orthopedic instrumentation. The prostate is enlarged. It isdifficult to evaluate the prostate further. There is no directly visiblemass and there is no evidence of adenopathy in the pelvis.. OSSEOUS STRUCTURES and ABDOMINAL WALL: No lytic or blastic lesion tosuggest osseous metastatic disease. Degenerative changes.No significantabdominal wall defect. OTHER: No free fluid or free air. IMPRESSION: 1. CHEST: No evidence of metastatic disease. 2. ABDOMEN: No evidence of metastatic disease. Abdominal aortic aneurysmstatus post endovascular repair with hooper bay sac unchanged in size. 3. PELVIS: Not well evaluated due to streak artifact from bilateral hiporthopedic hardware. The prostate is enlarged. No visible adenopathy ordirectly visible mass within the pelvis. 4. OSSEOUS STRUCTURES: No evidence of osseous metastatic disease 5. Other incidental and nonacute appearing findings as discussed in thebody of the report Please note that all CT scans at this facility use dose modulation,iterative reconstruction, and/or weight-based dosing when appropriate toreduce radiation dose to as low as reasonably achievable. Dictated by Jaren Frias MD @ 07/09/2024 7:20:25 AM (Electronically Signed) Eric Alvarez MD CT Final Result * (ABNORMAL) PSA TOTAL (DIAG OR SCREEN) (06/18/2024 3:58 PM ALIGNING CHECKER) PSA, TOTAL 174.07(H) < OR = 4.00 ng/mL [facility] Comment: The total PSA value from this assay system is standardized against the WHO standard. The test result will be approximately 20% lower when compared to the equimolar-standardized total PSA ([place]). Comparison of serial PSA results should be interpreted with this fact in mind. This test was performed using the Siemens chemiluminescent method. Values obtained from different assay methods cannot be used interchangeably. PSA levels, regardless of value, should not be interpreted as absolute evidence of the presence or absence of disease. Blood BLOOD SPECIMEN / Unknown 06/18/2024 3:58 PM ALIGNING CHECKER 06/18/2024 3:58 PM ALIGNING CHECKER Nirav Arguelles MD CHEMISTRY Final R esult [employer] [facility] [address] [place] [address], [place] [phone] [facility] [address] [place] [address] * SCAN-LABORATORY REPORT (06/06/2024 12:00 AM ALIGNING CHECKER) Scanner OTHER Final Result from Last 3 Months Insurance MEDICARE PB ONLY MEDICARE PART B HB ONLY [place] [id number] MEDICARE PART A HB ONLY Advance Directives Documents on File Type Date Recorded Patient Fire Behavior Analyst Expl anation POLST 06/22/2024 Healthcare Directive 12/05/2023 1:52 PM * Full Code (Latest Code Status on File) Date Activated Date Inactivated Comments 08/04/2018 5:57 AM 08/05/2018 4:13 PM Care Teams Goldsmith Apprentice Relationship Specialty Start Date End Date Alex Osorio MD [address] [place] [address] PCP - General Family Practice 06/06/20
[2024-08-04 15:42] VITALS: BP 114/69; PULSE 95; RESP 18; TEMP 37; O2SAT 93; BMI 26.6
--- NOTE | 2024-08-04 16:42 | ED_ITS ---
HPI - General Adult General Date Seen: 08/04/24 Chief complaint: Urogenital Problems, Male Stated complaint: Blood in Catheter bag Time Seen by Provider: 08/04/24 15:44 History of Present Illness HPI narrative: 88-year-old male presenting to the ER today with blood in his urine draining through his Mccrary catheter. He has had trouble with urinary retention for several months. I had actually seen him here in the ER in the end of May. He had previously had Mccrary catheter placed which had been removed that day and he had recurrence of urinary retention require replacement of a another Mccrary catheter. He was started on Flomax on 06/12 His catheter fell out on 06/14 any was seen again in the ER. Catheter was replaced. He was seen again on 06/19 after his catheter again was accidentally pulled out. For that record from 06/19 he had seen Urology on 06/18 and started on a new medication for BPH. Per records from [facility] he did have a urology evaluation by Dr. Isaac on 07/23. He had a cystoscopy that was normal. He did have a trial of voiding and was able to void with a postvoid residual of 17 mL. He was sent home that day without a catheter but within 24 hours had redeveloped urinary retention so had replacement of another Mccrary catheter that his care center. He actually has an appointment scheduled next week for a preop in anticipation of placement of a long-term indwelling suprapubic catheter. He has been doing well lately. No blood in his urine, no fever chills, no symptoms from the catheter. This morning the nurses at his care center noted ramon blood in his Mccrary catheter bag with some clots. They attempted to irrigate the Mccrary catheter bag but the blood was not clearing. Therefore he was sent here to the ER. He is here with his daughter and she notes that since she has picked him up his Mccrary catheter has been draining cloudy yellow urine, but no blood. It is drained at least 200 mL into the bag since she picked him up. The patient currently has no complaints. No abdominal pain. No flank pain. No fever. No nausea. He does not recall any tugging or trauma to the Mccrary catheter. He does not take any blood thinners. Related Data Home Medications ?Medication ?Instructions ?Recorded ?Confirmed fluticasone furoate 100 1 ea inhalation DAILY 11/19/23 04/22/25 mcg-vilanterol 25 mcg/dose inhalation powder (Breo Ellipta) metoprolol succinate 25 mg 25 mg PO DAILY 03/03/23 08/04/24 tablet,extended release 24 hr pantoprazole 20 mg tablet,delayed 20 mg PO DAILY 03/03/23 08/04/24 release albuterol sulfate 90 mcg/actuation 1 - 2 puff inhalation Q4H PRN 01/06/24 08/04/24 aerosol inhaler dyspnea amlodipine 2.5 mg tablet 2.5 mg PO DAILY 01/06/24 08/04/24 tamsulosin 0.4 mg capsule (Flomax) 0.4 mg PO DAILY 06/19/24 08/04/24 atorvastatin 10 mg tablet 10 mg PO DAILY 08/04/24 08/04/24 finasteride 5 mg tablet 5 mg PO DAILY 08/04/24 08/04/24 Previous Rx's ?Medication ?Instructions ?Recorded ciprofloxacin HCl 500 mg tablet 500 mg PO BID #14 tabs 08/04/24 (Cipro) Allergies Allergy/AdvReac Type Severity Reaction Status Date / Time No Known Drug Allergies Allergy Verified 06/19/24 12:32 [facility] Social History Smoking Status: Never smoker Do you use any of these nicotine containing products: None Second hand tobacco smoke exposure: No How often do you have a drink containing alcohol: never How often do you have six or more drinks on one occasion: Never AUDIT-C Alcohol total score: 0 Non-prescribed substance use: denies use service: No Exam Narrative: Exam Narrative: Constitutional: Appears well-developed and well-nourished. Alert. Conversant. He does seem very pleasant but has poor short-term memory. Asks the same questions multiple times. HENT: Head: Atraumatic. Nose: Nose normal. Mouth/Throat: Oral mucosa is clear and moist. no trismus. Eyes: Conjunctivae normal. EOM normal. Pupils equal, round, and reactive to light. No scleral icterus. Neck: Normal range of motion. Neck supple. No tracheal deviation present. Cardiovascular: Normal rate, regular rhythm. Pulmonary/Chest: Effort normal. No stridor. No respiratory distress. Abdominal: Soft. No distension. No mass. No tenderness. No rebound. No guarding. No CVA tenderness : Mccrary catheter in place. No blood in the Mccrary catheter tubing or bag. No sign of clots. He does have about 200 mL of dark yellow urine in the Mccrary catheter bag in the catheter appears to be draining properly right now. He does have a little bit of widening of his urethral meatus likely from his chronic Mccrary catheter. No signs of blood at the meatus. Otherwise glans of the penis looks normal. Musculoskeletal: RUE: Normal range of motion. No tenderness. No deformity LUE: Normal range of motion. No tenderness. No deformity RLE: Normal range of motion. No edema. No tenderness. No deformity LLE: Normal range of motion. No edema. No tenderness. No deformity Neurological: Alert and oriented to person, place, and time. Normal strength. CN II-VII intact. No sensory deficit. GCS eye subscore is 4. GCS verbal subscore is 5. GCS motor subscore is 6. Normal coordination Skin: Skin is warm and dry. No rash noted. No pallor. Normal capillary refill. Psychiatric: Normal mood. Normal affect. Const: Vital Signs, click to edit/add: Vital Signs - 24 hr 08/04/24 15:42 Temperature 98.6 F Pulse Rate [Pulse Oximeter] 95 Respiratory Rate 18 Blood Pressure [Ri ght Upper Arm] 114/69 Pulse Oximetry 93 Oxygen Delivery Me thod Room Air Course Vital Signs Vital signs: Initial Vital Signs Temperature 98.6 F 08/04/24 15:42 Temperature Source Temporal Artery Scan 08/04/24 15:42 Pulse Rate 95 08/04/24 15:42 Respiratory Rate 18 08/04/24 15:42 Blood Pressure 114/69 08/04/24 15:42 Blood Pressure Mean 84 08/04/24 15:42 Blood Pressure Position Sitting 08/04/24 15:42 Pulse Oximetry 93 08/04/24 15:42 Oxygen Delivery Method Room Air 08/04/24 15:42 Vital Signs Temperature 98.6 F 08/04/24 15:42 Pulse Rate 95 08/04/24 15:42 Respiratory Rate 18 08/04/24 15:42 Blood Pressure 114/69 08/04/24 15:42 Pulse Oximetry 93 08/04/24 15:42 Oxygen Delivery Method Room Air 08/04/24 15:42 Temperature 98.6 F 08/04/24 15:42 Pulse Rate 95 08/04/24 15:42 Respiratory Rate 18 08/04/24 15:42 Blood Pressure 114/69 08/04/24 15:42 Pulse Oximetry 93 08/04/24 15:42 Oxygen Delivery Method Room Air 08/04/24 15:42 Medications Administered Medications: Discontinued Medications Generic Name Dose Route Start Last Admin Trade Name Mitch PRN Reason Stop Dose Admin Ciprofloxacin 500 mg 08/04/24 18:19 08/04/24 18:34 Ciprofloxacin 500 Mg Tablet PO 08/04/24 18:20 500 mg ONCE ONE Administration Medical Decision Making MDM Narrative Medical decision making narrative: This is a very pleasant 88-year-old gentleman who has an ongoing into a length of the catheter. He was sent to the ER today by his care center because of gross hematuria with clots that developed this morning. This catheter was placed about 10 days ago. He has not had any blood since that placement. Patient has poor memory but does not recall any specific injury or pulling on the catheter. Urinalysis does show pyuria which I think could indicate possible UTI. He is not otherwise febrile. Urine is a bit cloudy colored here in the ER. With hematuria I think we will put him on antibiotics. Based on recent urine culture she growing Proteus with some resistances, will put him on ciprofloxacin. Await urine culture to adjust antibiotics as necessary. Fortunately the hematuria seems to have resolved. He is not having any ongoing hematuria or clots while here. At this point I do not think he needs further bladder irrigation or placement of a triple-lumen catheter. I discussed plan of care with the patient and with his daughters. They verbali zed understanding and agreement. Daughters will be able to get him his antibiotics and will be able to bring him back to the [facility] today. They actually have appointments to see his urologist tomorrow as part of a preop evaluation to have placement of a suprapubic catheter. Lab Data Labs: Lab Results 08/04/24 Range/Units 17:13 Urine Color Yellow (Yellow) Urine Appearance Cloudy A (Clear) Urine pH 5.5 (5.0-8.5) Ur Specific Lutts >= 1.030 (1.000-1.030) Urine Protein 2+ A (Negative) Urine Glucose (UA) Negative (Negative) Urine Ketones Negative (Negative) Urine Blood 3+ A (Negative) Urine Nitrite Positive A (Negative) Urine Bilirubin Negative (Negative) Urine Urobilinogen 0.2 (0.2-1.0) Ur Leukocyte Esterase 3+ A (Negative) Urine RBC 10-25 A (0-2) Urine WBC 10-25 A (0-5) Ur Squamous Epith Cells Few (None-Few) Urine Bacteria Few A (None) Discharge Plan Discharge Clinical Impression: Hematuria, Acute UTI Patient Disposition: Home, Self-Care Condition: Stable Instructions: Hematuria (ED), Catheter-associated Urinary Tract Infection (ED) Additional Instructions: As we discussed, I am glad that the blood is cleared from your urine. Please try to drink plenty of fluids and stay hydrated. If you have more blood in your urine, especially if you have clots the plug up your catheter, please return to the ER right away. Your urine sample shows signs of an infection today. Were going to start you on an antibiotic (Cipro). Take the antibiotic twice a day for 7 days. Someone from the hospital will call you in 1 or 2 days if we need to change your antibiotic. Monitor carefully and if you have worsening symptoms such as fever, weakness, vomiting, please come back to the ER or see your doctor right away. Prescriptions: New ciprofloxacin HCl [Cipro] 500 mg tablet 500 mg PO BID Qty: 14 0RF No Action atorvastatin 10 mg tablet 10 mg PO DAILY finasteride 5 mg tablet 5 mg PO DAILY pantoprazole 20 mg tablet,delayed release (DR/EC) 20 mg PO DAILY metoprolol succinate 25 mg tablet extended release 24 hr 25 mg PO DAILY fluticasone furoate-vilanterol [Breo Ellipta] 100-25 mcg/dose blister with device 1 ea INHALATION DAILY amlodipine 2.5 mg tablet 2.5 mg PO DAILY albuterol sulfate 90 mcg/actuation HFA aerosol inhaler 1 - 2 puff INHALATION Q4H PRN (Reason: dyspnea) tamsulosin [Flomax] 0.4 mg capsule 0.4 mg PO DAILY Follow Up/Referrals: Alex Osorio MD [Primary Care Provider] - Stand Alone Forms: [employer] Info Instructions
--- OUTSIDE RECORDS SUMMARY | 2024-08-04 17:23 | XMS_ITS | Clinical Summary ---
Author Organization [employer] Address [address] [place] [id number] Care Team Providers Care Drafter Civil Engineering Name Role Phone Alex Osorio MD Primary Care Provider [phone] Allergies No known active allergies Medications ZINC [...] IV sedation 2. US guided access bilateral DRAPERY SEWER HAND 3. Abdominal aortogram 4. 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 Tobacco use disorder 022 Overview (04/07/2018): Quit smoking 01/2018 Encounters Date Type Department Care Team Description 08/04/2024 Nurse Triage [facility] [place] [address] Omari Isaac MD Questions (Blood in catheter bag.) 08/01/2024 Travel 07/24/2024 Telephone [facility] 100 [place] [address] Omari Isaac MD Outside Order (Written orders) 07/23/2024 12:00 PM CDT Procedure Only [facility] 100 [place] [address] Omari Isaac MD Follow Up; Procedure (cystoscopy ) 07/23/2024 Travel 07/21/2024 Refill [facility] [address] [place] [address] Alex Osorio MD Refill Request (Albuterol Hfa) 07/18/2024 Travel 07/15/2024 10:06 AM CDT - 07/15/2024 11:59 PM CDT Hospital Encounter [facility] [address] [place] [address] Eric Alvarez MD Elevated PSA 07/15/2024 Travel 07/08/2024 11:00 AM CDT - 07/08/2024 11:59 PM CDT Hospital Encounter [facility] [address] [place] [address] Eric Alvarez MD Elevated PSA 07/08/2024 Travel 06/28/2024 Refill [facility] [address] [place] [address] Alex Osorio MD Refill Request (Albuterol Hfa) 06/22/2024 Orders Only [facility] [address] [place] [address] Eric Alvarez MD <No scans attached> 06/22/2024 Telephone [facility] [address] [place] [address] Alex Osorio MD OTHER (medical supplies) 06/18/2024 3:00 PM COLD WATER MACHINE OPERATOR Office Visit [facility] [address] [place] [address] Nirav Arguelles MD Urinary Problem (unable to urinate; ED visit in May; cath placed; started flomax 10 days ago; has had this cath in since 06/12/24; mostly cathed since 06/03; ) 06/18/2024 Travel 06/17/2024 Patient Outreach [facility] Care Management - Advanced Care Team [address] [place] [address] Bisi Leger Complex Care Management (ACO REACH ENGAGEMENT OUTREACH) 06/16/2024 Travel 06/16/2024 Patient Outreach [facility] Care Management - Care Management Navigation/[facility] [address] [place] [address] Korin Lo Care Management Intake (ACO Reach) 06/15/2024 Telephone [facility] [address] [place] [address] Alex Osorio MD Questions (ASSISTED LIVING// REQUEST CALL BACK ) 06/12/2024 9:00 AM COLD WATER MACHINE OPERATOR Nurse/Clinic Staff Only [facility] [address] [place] [address] Removal (Mccrary catheter) 06/12/2024 Travel 06/10/2024 Travel 06/09/2024 11:45 AM COLD WATER MACHINE OPERATOR Office Visit [facility] [address] [place] [address] Alex Osorio MD Hospital F/U 06/09/2024 Travel 06/06/2024 Orders Only [facility] Scanner 1 scan: (1-Ord) [facility], 06/06/2024 06/04/2024 Travel 06/03/2024 Refill [facility] [address] [place] [address] Alex Osorio MD Refill Request (Albuterol Hfa) 06/03/2024 Nurse Triage [facility] [address] [place] [address] Alex Osorio MD Pain On Urination from Last 3 Months Immunizations Immunization Administration Dates Next Due COVID-19 VACCINE SPIKEVAX (M ODERNA 50MCG/0.5ML) 12YO+ PFS 01/02/2024 COVID-19 vaccine (Zinkia-Bio NTech 30mcg/0.3mL) LILIAN CHAPMAN 06/18/2020,05/28/2020 Influenza A [...] Mother Hypertension Sister 2 Other Sister 3 [place]'s disea se Cancer-colon No Family History Relation [...] on file Legal Sex Male 5:24 AM COLD WATER MACHINE OPERATOR Gender Identity Not on file Sexual Orientation Not on file Obstetrics History Last Filed Vital Signs Vital Sign Reading Time Taken Comments Blood Pressure 136/82 06/18/2024 3:16 PM COLD WATER MACHINE OPERATOR Pulse 87 06/18/2024 3:16 PM COLD WATER MACHINE OPERATOR Temperature 36.8 C (98.3 F) 04/20/2022 10:07 AM COLD WATER MACHINE OPERATOR Respiratory Rate 16 08/03/2021 2:24 PM CDT Oxygen Saturation 98% 06/18/2024 3:16 PM COLD WATER MACHINE OPERATOR Inhaled Oxygen Concentration - - Weight 85.8 kg (189 lb 1.6 oz) 06/18/2024 3:16 P M COLD WATER MACHINE OPERATOR Height 168.5 cm (5' 6.34) 12/02/2023 1:34 PM CD T Body Mass Index 30.21 12/02/2023 1:34 PM CDT Plan of Treatment Upcoming Encounters Date Type Department Care Team (Late st Contact Info) Description 08/05/2024 2:40 PM CDT Office Visit [facility] [address] [place] [address] Nirav Newberry MD [address] [place] [address] 08/14/2024 12:00 PM CDT Appointment [facility] [address] [place], [place] [id number] 11/24/2024 9:30 AM CDT Office Visit [facility] [address] [place] [address] Aki Agudelo III, PhD, [address] [facility] [address] [place] [address] Health Maintenance Due Date Last Done Comments [...] history exists Medical Devices Implanted Type Area Full Time Staff Interpreter Device Identifier Shelf Expiration Date Model / Serial / Lot Stent Aaa 24x82 Endurant 2 Limb Iliac - [id number] Implanted:Qty: 1 on 08/04/2018 by Harsha Escoto MD at [facility] N/A: Aorta Medtronic Aortic Intervention 01/03/2019 [id number]# / [id number] / Graft Stent Aaa Endurant 23x70 Implanted:Qty: 1 on 08/04/2018 by Harsha Escoto MD at [facility] N/A: Aorta Medtronic Aortic Intervention 12/10/2019 [id number] / [id number] / Procedures Procedure Name Priority Date/Time Associated Diagnosis Comments [place] POST-VOIDING RESIDUAL URINE&/BLADDER CAP Routine 07/23/2024 12:00 AM CDT Urinary retention NM BONE SCAN WHOLE BODY MELLO 07/15/2024 1:20 PM CDT Elevated PSA CREATININE,ISTAT Routine 07/08/2024 11:[address] CHEST ABDOMEN PELVIS W MELLO 07/08/2024 11:11 AM CDT Elevated PSA PSA TOTAL Routine 06/18/2024 3:58 PM COLD WATER MACHINE OPERATOR BPH with urinary obstruction SCAN-LABORATORY REPORT 06/06/2024 12:00 AM COLD WATER MACHINE OPERATOR from Last 3 Months Results * [place] DON[place] POST-VOIDING RESIDUAL URINE&/BLADDER CAP (07/23/2024 12:00 AM CDT) Omari Isaca MD PB - URINARY SYSTEM SERVICES F [...] - 1.11 mg/dL 07/08/2024 11:16 AM CDT [facility] Comment:Caution: Patients ta pratima Hydroxyurea have falsely increased iStat Creatinine results. Verify creatinine results ordering a Creatinine (35144.2) eGFR 83(L) >90 mL/min/1.7 3m2 07/08/2024 11:16 AM CDT [facility] Comment:As of 2021, eG FR [...] MD CHEMISTRY Final Result Performing Organization Address City/State/[facility] Co de Phone Number [facility] [address] [place] [address] * CT CHEST ABDOMEN PELVIS W (07/08/2024 11:11 AM CDT) Anatomical Region Laterality Modality Abdomen, Pelvis, AORTA, LIVER, SPLEEN, CHEST Computed Tomography 07/09/2024 7:20 AM CDT Impressions 07/09/2024 7:20 AM CDT 1. CHEST: No evidence of metastatic disease. 2. ABDOMEN: No evidence of metastatic disease. Abdominal aortic aneurysm status post endovascular repair with little shell tribe sac unchanged in size. 3. PELVIS: Not [...] aortic aneurysm status post endovascular repair. The little shell tribe sac size is approximately 5.1 centimeters in [...] abdominal aorticaneurysm status post endovascular repair. The little shell tribe sac size isapproximately 5.1 centimeters in diameter [...] Abdominal aortic aneurysmstatus post endovascular repair with little shell tribe sac unchanged in size. 3. PELVIS: Not [...] TOTAL (DIAG OR SCREEN) (06/18/2024 3:58 PM COLD WATER MACHINE OPERATOR) PSA, TOTAL 174.07(H) < OR = 4.00 ng/mL [facility] Comment: The total PSA value from this assay system is standardized against the WHO standard. The test result will be approximately 20% lower when compared to the equimolar-standardized total PSA (Kay Raleigh). Comparison of serial PSA results should be interpreted with this fact in mind. This test was performed using the Siemens chemiluminescent method. Values obtained from different assay methods cannot be used interchangeably. PSA levels, regardless of value, should not be interpreted as absolute evidence of the presence or absence of disease. 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
[2024-08-04 17:42] LABS: Appearance Urine Cloudy (Clear); Bilirubin Urine Negative (Negative); Blood Urine 3+ (Negative); Glucose Urine Negative (Negative); Ketones Urine Negative (Negative); Leukocyte Esterase Urine 3+ (Negative); Nitrite Urine Positive (Negative); Protein Urine 2+ (Negative); Specific Gravity Urine >= 1.030 (1.000-1.030); Urobilinogen Urine 0.2 (0.2-1.0); pH Urine 5.5 (5.0-8.5)
[2024-08-04 18:07] LABS: Bacteria Urine Few; Color Urine Yellow (Yellow); Squamous Epithelial Cell Urine Few (None-Few)
[2024-08-04] MEDS: CIPROFLOXACIN 500 MG TABLET PO (18:34)
--- NOTE | 2024-08-08 14:23 | ED.GENADULT ---
HPI - General Adult General Chief complaint: Urogenital Problems, Male Stated complaint: Blood in Catheter bag Time Seen by Provider: 08/04/24 15:44 History of Present Illness HPI narrative: Addendum to ER visit from 08/04. Urine culture growing Proteus. Sensitive to Cipro. No change. Related Data Home Medications ?Medication ?Instructions ?Recorded ?Confirmed fluticasone furoate 100 1 ea inhalation DAILY 03/03/23 08/04/24 mcg-vilanterol 25 mcg/dose inhalation powder (Breo Ellipta) metoprolol succinate 25 mg 25 mg PO DAILY 03/03/23 08/04/24 tablet,extended release 24 hr pantoprazole 20 mg tablet,delayed 20 mg PO DAILY 03/03/23 08/04/24 release albuterol sulfate 90 mcg/actuation 1 - 2 puff inhalation Q4H PRN 01/06/24 08/04/24 aerosol inhaler dyspnea amlodipine 2.5 mg tablet 2.5 mg PO DAILY 01/06/24 08/04/24 tamsulosin 0.4 mg capsule (Flomax) 0.4 mg PO DAILY 06/19/24 08/04/24 atorvastatin 10 mg tablet 10 mg PO DAILY 08/04/24 08/04/24 finasteride 5 mg tablet 5 mg PO DAILY 08/04/24 08/04/24 Previous Rx's ?Medication ?Instructions ?Recorded ciprofloxacin HCl 500 mg tablet 500 mg PO BID #14 tabs 08/04/24 (Cipro) Allergies Allergy/AdvReac Type Severity Reaction Status Date / Time No Known Drug Allergies Allergy Verified 06/19/24 12:32 PFSH PFSH Social History Smoking Status: Never smoker Do you use any of these nicotine containing products: None Second hand tobacco smoke exposure: No How often do you have a drink containing alcohol: never How often do you have six or more drinks on one occasion: Never AUDIT-C Alcohol total score: 0 Non-prescribed substance use: denies use service: No Course Vital Signs Vital signs: Initial Vital Signs Temperature 98.6 F 08/04/24 15:42 Temperature Source Temporal Artery Scan 08/04/24 15:42 Pulse Rate 95 08/04/24 15:42 Respiratory Rate 18 08/04/24 15:42 Blood Pressure 114/69 08/04/24 15:42 Blood Pressure Mean 84 08/04/24 15:42 Blood Pressure Position Sitting 08/04/24 15:42 Pulse Oximetry 93 08/04/24 15:42 Oxygen Delivery Method Room Air 08/04/24 15:42 Vital Signs Temperature 98.6 F 08/04/24 15:42 Pulse Rate 95 08/04/24 15:42 Respiratory Rate 18 08/04/24 15:42 Blood Pressure 114/69 08/04/24 15:42 Pulse Oximetry 93 08/04/24 15:42 Oxygen Delivery Method Room Air 08/04/24 15:42 Temperature 98.6 F 08/04/24 15:42 Pulse Rate 95 08/04/24 15:42 Respiratory Rate 18 08/04/24 15:42 Blood Pressure 114/69 08/04/24 15:42 Pulse Oximetry 93 08/04/24 15:42 Oxygen Delivery Method Room Air 08/04/24 15:42 Medications Administered Medications: Discontinued Medications Generic Name Dose Route Start Last Admin Trade Name Mitch PRN Reason Stop Dose Admin Ciprofloxacin 500 mg 08/04/24 18:19 08/04/24 18:34 Ciprofloxacin 500 Mg Tablet PO 08/04/24 18:20 500 mg ONCE ONE Administration Medical Decision Making Lab Data Labs: Lab Results 08/04/24 Range/Units 17:13 Urine Color Yellow (Yellow) Urine Appearance Cloudy A (Clear) Urine pH 5.5 (5.0-8.5) Ur Specific [place] >= 1.030 (1.000-1.030) Urine Protein 2+ A (Negative) Urine Glucose (UA) Negative (Negative) Urine Ketones Negative (Negative) Urine Blood 3+ A (Negative) Urine Nitrite Positive A (Negative) Urine Bilirubin Negative (Negative) Urine Urobilinogen 0.2 (0.2-1.0) Ur Leukocyte Esterase 3+ A (Negative) Urine RBC 10-25 A (0-2) Urine WBC 10-25 A (0-5) Ur Squamous Epith Cells Few (None-Few) Urine Bacteria Few A (None) Discharge Plan Discharge Clinical Impression: Hematuria, Acute UTI Patient Disposition: Home, Self-Care Condition: Stable Instructions: Hematuria (ED), Catheter-associated Urinary Tract Infection (ED) Additional Instructions: As we discussed, I am glad that the blood is cleared from your urine. Please try to drink plenty of fluids and stay hydrated. If you have more blood in your urine, especially if you have clots the plug up your catheter, please return to the ER right away. Your urine sample shows signs of an infection today. Were going to start you on an antibiotic (Cipro). Take the antibiotic twice a day for 7 days. Someone from the hospital will call you in 1 or 2 days if we need to change your antibiotic. Monitor carefully and if you have worsening symptoms such as fever, weakness, vomiting, please come back to the ER or see your doctor right away. Prescriptions: New ciprofloxacin HCl [Cipro] 500 mg tablet 500 mg PO BID Qty: 14 0RF No Action atorvastatin 10 mg tablet 10 mg PO DAILY finasteride 5 mg tablet 5 mg PO DAILY pantoprazole 20 mg tablet,delayed release (DR/EC) 20 mg PO DAILY metoprolol succinate 25 mg tablet extended release 24 hr 25 mg PO DAILY fluticasone furoate-vilanterol [Breo Ellipta] 100-25 mcg/dose blister with device 1 ea INHALATION DAILY amlodipine 2.5 mg tablet 2.5 mg PO DAILY albuterol sulfate 90 mcg/actuation HFA aerosol inhaler 1 - 2 puff INHALATION Q4H PRN (Reason: dyspnea) tamsulosin [Flomax] 0.4 mg capsule 0.4 mg PO DAILY Follow Up/Referrals: Alex Osorio MD [Primary Care Provider] - Stand Alone Forms: [employer] Info Instructions
== END 2024-08-04 18:52 | disposition home or self-care (01) ==
PROVIDERS: Emergency Provider Emergency Medicine; PCP Surgery
DX: N39.0 Urinary tract infection, site not specified (principal); R31.0 Gross hematuria
CPT/HCPCS: 81001; 87086; 99281; 99282; 99283; A9270

== ENCOUNTER 2024-12-31 17:17 | Emergency (ER) | payer MEDICARE, OTHER, SELFPAY ==
--- OUTSIDE RECORDS SUMMARY | 2024-12-31 17:19 | XMS_ITS | Clinical Summary ---
Author Organization [facility] Address [address] [place] [id number] Care Team Providers Care Swatch Checker Name Role Phone Alex Osorio MD Primary Care Provider [phone] Allergies No known active allergies Medications ZINC 50 MG TAB 1 orally twice weekly on Mondays and Fridays 0 02/11/20 08 Active acetaminophen SR (TYLENOL ARTHRITIS) 650 mg Extended-Releas e tablet Max acetaminophen dose: 4000mg in 24 hrs. Takes 2 tablets in the am, 1 at noon and 2 tablets in the evening 0 05/29/19 19 Active atorvastatin (LIPITOR) 10 mg tabletIndicatio ns:Hyperlipidem ia with target LDL less than 160 Take 1 Tablet (10 mg) by mouth once daily. 90 Tablet 3 12/22/19 25 Active albuterol HFA (PRO-AIR; VENTOLIN; PROVENTIL) 90 mcg/actuation inhalerIndicati ons:COPD mixed type (HC) Inhale 1-2 Puffs by mouth every 4 hours if needed for Shortness Of Breath. 6.7 g 12/22/19 25 Active fluticasone furoate-vilante roL (Breo Ellipta) 100-25 mcg/dose inhalation powderIndicatio ns:COPD mixed type (HC) Inhale 1 Puff by mouth once daily. 180 Each 3 12/22/19 25 Active metoprolol succinate (Toprol XL) 25 mg Sustained-Relea se tabletIndicatio ns:SVT (supraventricul ar tachycardia) (HC) Take 1 Tablet (25 mg) by mouth once daily. 90 Tablet 3 12/22/19 25 Active pantoprazole (PROTONIX) 20 mg tabletIndicatio ns:Chronic GERD Take 1 Tablet (20 mg) by mouth once daily. 90 Tablet 3 12/22/19 25 Active umeclidinium (Incruse Ellipta) 62.5 mcg/actuation inhalerIndicati ons:COPD mixed type (HC) Inhale 1 Puff by mouth once daily. 90 Each 3 12/22/19 25 Active timolol maleate (TIMOPTIC) 0.5 % ophthalmic solution Place 1 Drop into both eyes once daily. 025 Discontin ued(*Rosa Isela ent states no longer taking) fluticasone furoate-vilante roL (Breo Ellipta) 100-25 mcg/dose inhalation powderIndicatio ns:COPD mixed type (HC) Inhale 1 Puff by mouth once daily. 180 Each 3 12/02/19 24 025 Discontin ued(Reord er (E-cancel not sent)) metoprolol succinate (Toprol XL) 25 mg Sustained-Relea se tabletIndicatio ns:SVT (supraventricul ar tachycardia) (HC) Take 1 Tablet (25 mg) by mouth once daily. 90 Tablet 3 12/02/19 24 025 Discontin ued(Reord er (E-cancel not sent)) pantoprazole (PROTONIX) 20 mg tabletIndicatio ns:Chronic GERD Take 1 Tablet (20 mg) by mouth once daily. 90 Tablet 3 12/02/19 24 025 Discontin ued(Reord er (E-cancel not sent)) atorvastatin (LIPITOR) 10 mg tabletIndicatio ns:Hyperlipidem ia with target LDL less than 160 Take 1 Tablet (10 mg) by mouth once daily. 90 Tablet 3 01/02/20 24 025 Discontin ued(Reord er (E-cancel not sent)) tamsulosin 0.4 mg capsuleIndicati ons:BPH without urinary obstruction Take 1 Capsule (0.4 mg) by mouth once daily after a meal. 90 Capsule 3 06/09/19 25 025 Discontin ued(Reord er (E-cancel not sent)) finasteride (PROSCAR) 5 mg tabletIndicatio ns:Urinary retention Take 1 Tablet (5 mg) by mouth once daily in the morning. 90 Tablet 2 06/19/19 25 025 Discontin ued(*Medi cation adjustmen t) albuterol HFA (PRO-AIR; VENTOLIN; PROVENTIL) 90 mcg/actuation inhalerIndicati ons:COPD mixed type (HC) INHALE 1 TO 2 PUFFS BY MOUTH EVERY 4 HOURS NEEDED FOR SHORTNESS OF BREATH 6.7 g 11/21/19 25 025 Discontin ued(Reord er (E-cancel not sent)) umeclidinium (Incruse Ellipta) 62.5 mcg/actuation inhalerIndicati ons:COPD mixed type (HC) INHALE 1 PUFF BY MOUTH ONCE DAILY 60 Each 11/25/19 25 025 Discontin ued(Reord er (E-cancel not sent)) tamsulosin 0.4 mg capsuleIndicati ons:BPH without urinary obstruction Take 1 Capsule (0.4 mg) by mouth once daily after a meal. 90 Capsule 3 12/22/19 25 025 Discontin ued(*Medi cation adjustmen t) Active Problems Problem Noted Date Diagnosed Date Anemia 08/06/2024 Moderate dementia without behavioral disturbance 06/17/2024 Urinary retention 06/17/2024 LBBB (left bundle branch block) 07/05/2021 SVT (supraventricular tachycardia) 07/05/2021 Mitral valve insufficiency 07/05/2021 COPD mixed type 05/12/2021 Abdominal aortic aneurysm (AAA) without rupture 08/04/2018 Overview (08/05/2018): 08/04/18- Dr. Escoto 1. Mod IV sedation 2. 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 Abdominal aortogram 4. Repair of abdominal aortic aneurysm with 23 mm x 70 mm medtronic proximal cuff 5. Distal extension with 24 x 82 mm iliac stent 6. 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 08/21/2021 Overview (11/07/2006): left hand Diverticulosis of colon (wit hout mention of hemorrhage) 11/07/2006 08/21/2021 Impotence of organic origin 11/07/2006 08/21/2021 Tobacco use disorder 022 Overview (04/07/2018): Quit smoking 01/2018 Encounters Date Type Department Care Team Description 12/22/2024 Telephone [facility] [address] [place] [address] Alex Osorio MD Follow Up 12/21/2024 3:05 PM CDT Office Visit [facility] [address] [place] [address] Alex Osorio MD Medicare ANNUAL (subsequent) Visit (89 yr old male) 12/21/2024 Travel 12/16/2024 Travel 11/21/2024 Refill [facility] [address] [place] [address] Alex Osorio MD Refill Request (Incruse Ellipta) 11/20/2024 Refill [facility] [address] [place] [address] Alex Osorio MD Refill Request (Albuterol Hfa) 10/26/2024 2:00 PM CDT Office Visit [facility] [address] [place] [address] Eric Alvarez MD Recheck (S/P cath change) 10/26/2024 Travel 10/21/2024 Travel 10/06/2024 1:35 PM CDT Office Visit [facility] [address] [place] [address] Alex Osorio MD Foot Problem (Calluses on both feet ); Blood Pressure (medication) 10/06/2024 Travel 10/01/2024 Travel from Last 3 Months Immunizations Immunization Administration Dates Next Due COVID-19 VACCINE SPIKEVAX (M ODERNA 50MCG/0.5ML) 12YO+ PFS 01/02/2024 COVID-19 vaccine (Pfizer-Bio NTech 30mcg/0.3mL) PF, MDV 06/18/2020,05/28/2020 Influenza A (H1N1), Inactivated 05/10/2009 Influenza [...] Mother Hypertension Sister 2 Other Sister 3 Charlotte's disea se Cancer-colon No Family History Relation [...] Answer Date Recorded PHQ-2 TOTAL SCORE 0 12/21/2024 Social Connections Answer Date Recorded Do you often feel lonely or isolated from those around you? 0 12/21/2024 Alcohol Use Answer Date Recorded How often do you have a drink containing alcohol ? 3 12/21/2024 How many drinks containing a lcohol do you have on a typical day when you are drinking? 0 12/21/2024 How often do you have five or more drinks on one occasion? 0 12/21/2024 Financial Resource Strain Answer Date R ecorded Difficulty of Paying Living Expenses 3 12/21/2024 Difficulty of Paying Living Expenses Not on file 12/21/2024 Food Insecurity Answer Date Recorded Do you worry your food will run out before you are able to buy more? 1 12/21/2024 Transportation Needs Answer Date Record ed Does lack of transportation keep you from medica l appointments? 1 12/21/2024 Does lack of transportation keep you from work, meetings or getting things that you need? 1 12/21/2024 Housing Stability Answer Date Recorded What is your housing situation today? 1 12/21/2024 Utilities Answer Date Recorded Do you have trouble paying f or utilities (for example, heat, electricity, water, phone)? 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 Gender Identity Not on file Sexual Orientation Not on file Obstetrics History Last Filed Vital Signs Vital Sign Reading Time Taken Comments Blood Pressure 135/75 12/21/2024 2:57 PM CDT Pulse 88 12/21/2024 2:57 PM CDT Temperature 36.7 C (98.1 F) 08/05/2024 2:45 PM CDT Respiratory Rate 16 08/14/2024 3:30 PM CDT Oxygen Saturation 99% 12/21/2024 2:57 PM CDT Inhaled Oxygen Concentration - - Weight 87.3 kg (192 lb 6.4 oz) 12/21/2024 2:57 P M CDT Height 169.5 cm (5' 6.73) 12/21/2024 2:57 PM CD T Body Mass Index 30.38 12/21/2024 2:57 PM CDT Plan of Treatment Upcoming Encounters Date Type Department Care Team (Late st Contact Info) Description 01/15/2025 1:00 PM CDT Ancillary Procedure [facility] [address] [place] [address] Health Maintenance Due Date Last Done Comments RSV vaccine for adults or (1 - 1-dose 75+ series) 2012 Tetanus booster 10/22/2023 10/21/2013, 02/15/2004 COVID-19 vaccine series ( season) 2024 01/02/2024, 01/30/2023, 01/08/2022, Additional history exists Influenza Vaccine (#1) 2024 , 01/02/2024, 02/06/2021, Additional history exists BMI (ht and wt on same day) for age 18+ 12/21/2025 12/21/2024, 08/05/2024, 12/02/2023, Additional history exists Depression screening for age 12+ 12/21/2025 12/21/2024, 12/04/2023, 12/04/2023, Additional history exists Medicare Wellness for age 65+ 12/22/2025 12/21/2024, 12/02/2023, 11/30/2022, Additional history exists Pneumococcal series for age 50+ Completed 10/28/2014, 04/12/2005, 02/15/2004 Zoster (shingles) series for age 50+ Completed 09/10/2018, 06/27/2018, 11/07/2006 Hepatitis B series for 19+ Aged Out N o longer eligible based on patient's age to complete this topic Medical Devices Implanted Type Area Computer Operator Device Identifier Shelf Expiration Date Model / Serial / Lot Stent Aaa 24x82 Endurant 2 Limb Iliac - [id number] Implanted:Qty: 1 on 08/04/2018 by Harsha Escoto MD at [facility] N/A: Aorta Medtronic Aortic Intervention 01/03/2019 [id number]# / [id number] / Graft Stent Aaa Endurant 23x70 Implanted:Qty: 1 on 08/04/2018 by Harsha Escoto MD at [facility] N/A: Aorta Medtronic Aortic Intervention 12/10/2019 [id number] / [id number] / Procedures Procedure Name Priority Date/Time Associated Diagnosis Comments LIPID PANEL Routine 12/21/2024 3:54 PM CDT Hyperlipidemia with target LDL less than 160 BASIC METABOLIC PANEL Routine 12/21/2024 3:54 PM CDT BPH without urinary obstruction from Last 3 Months Results * (ABNORMAL) LIPID PANEL (12/21/2024 3:54 PM CDT) CHOLESTEROL, TOTAL 136 <200 mg/dL 12/22/2024 7:58 AM CDT [facility] TRIGLYCERIDES 254(H) <150 mg/dL 12/22/2024 7:58 AM [facility] Comment: If a non-fasting specimen was collected, consider repeat triglyceride testing on a fasting specimen if clinically indicated. Shira et al. J. of Clin. Lipidol. 2015;9:129-169. HDL CHOLESTEROL 50 > OR = 40 mg/dL 12/22/2024 7:58 AM [facility] NON HDL CHOLESTEROL 86 <130 mg/dL (calc) 12/22/2024 7:58 AM [facility] Comment: For patients with diabetes plus 1 major ASCVD risk factor, treating to a non-HDL-C goal of <100 mg/dL (LDL-C of <70 mg/dL) is considered a therapeutic option. CHOL/HDLC RATIO 2.7 <5.0 (calc) 12/22/2024 7:58 AM CDT [facility] LDL-CHOLESTEROL 56 mg/dL (calc) 12/22/2024 7:58 AM [facility] Comment: Reference range: <100 Desirable range <100 mg/dL for primary prevention; <70 mg/dL for patients with CHD or diabetic patients with > or = 2 CHD risk factors. LDL-C is now calculated using the Lucho calculation, which is a validated novel method providing better accuracy than the Friedewald equation in the estimation of LDL-C. Jaylon CARBAJAL et al. AHSAN. 2013;310(19): 6680-6719 (http://education.[employer]/faq/IAE756) Blood BLOOD SPECIMEN / Unknown [facility] / Unknown 12/21/2024 3:54 PM CDT 12/21/2024 3:54 PM CDT Alex Osorio MD CHEMISTRY Final Resu lt [facility] [address] [address], * (ABNORMAL) BASIC METABOLIC PANEL (12/21/2024 3:54 PM CDT) SODIUM 136 135 - 146 mmol/L 12/22/2024 7:58 AM [facility]T [facility] POTASSIUM 4.0 3.5 - 5.3 mmol/L 12/22/2024 7:58 AM CDT [facility] CARBON DIOXIDE 25 20 - 32 mmol/L 12/22/2024 7:58 AM [facility] GLUCOSE 113(H) 65 - 99 mg/dL 12/22/2024 7:58 AM [facility] Comment: Fasting reference interval For someone without known diabetes, a glucose value between 100 and 125 mg/dL is consistent with prediabetes and should be confirmed with a follow-up test. CALCIUM 9.4 8.6 - 10.3 mg/dL 12/22/2024 7:58 AM [facility]T [facility] CREATININE 0.81 0.70 - 1.22 mg/dL 12/22/2024 7:58 AM CDT [facility] BUN/CREATININE RATIO SEE NOTE: 6 - 22 (calc) 12/22/2024 7:58 AM [facility] Comment: Not Reported: BUN and Creatinine are within reference range. EGFR 85 > OR = 60 mL/min/1. 73m2 12/22/2024 7:58 AM CDT [facility] UREA NITROGEN (BUN) 16 7 - 25 mg/dL 12/22/2024 7:58 AM CDT [facility] ELECTROLYTE BALANCE 8 7 - 17 mmol/L (calc) 12/22/2024 7:58 AM CDT [facility] CHLORIDE 103 98 - 110 mmol/L 12/22/2024 7:58 AM CDT [facility] Blood BLOOD SPECIMEN / Unknown [facility] / Unknown 12/21/2024 3:54 PM CDT 12/21/2024 3:54 PM CDT Alex Osorio MD CHEMISTRY Final Resu lt [facility] [address] [place] [address], from Last 3 Months Insurance MEDICARE PB ONLY MEDICARE PART B HB ONLY [place] [id number] MEDICARE PART A HB ONLY Advance Directives Documents on File Type Date Recorded 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
[2024-12-31 17:24] VITALS: BP 177/91; PULSE 83; RESP 16; TEMP 36; O2SAT 98
--- NOTE | 2024-12-31 17:36 | ED.GENADULT ---
HPI - General Adult General Date Seen: 12/31/24 Chief complaint: Urogenital Problems, Male Stated complaint: catheter issue Time Seen by Provider: 12/31/24 17:19 History of Present Illness HPI narrative: 89-year-old gentleman presenting to the ER today with concern that his suprapubic catheter has been obstructed. He has been leaking urine through his abdominal urostomy site around the catheter. His nurse at his care center try to irrigate the catheter but was not able to get any return. The nurses tried to remove and replace his catheter but were unable to so he was sent here to the ER without a catheter in place. Patient has no other complaints. No abdominal pain. No flank pain. No fever. Normal appetite. Normal behavior. Related Data Home Medications ?Medication ?Instructions ?Recorded ?Confirmed fluticasone furoate 100 1 ea inhalation DAILY 03/03/23 08/04/24 mcg-vilanterol 25 mcg/dose inhalation powder (Breo Ellipta) metoprolol succinate 25 mg 25 mg PO DAILY 03/03/23 08/04/24 tablet,extended release 24 hr pantoprazole 20 mg tablet,delayed 20 mg PO DAILY 03/03/23 08/04/24 release albuterol sulfate 90 mcg/actuation 1 - 2 puff inhalation Q4H PRN 01/06/24 08/04/24 aerosol inhaler dyspnea amlodipine 2.5 mg tablet 2.5 mg PO DAILY 01/06/24 08/04/24 tamsulosin 0.4 mg capsule (Flomax) 0.4 mg PO DAILY 06/19/24 08/04/24 atorvastatin 10 mg tablet 10 mg PO DAILY 08/04/24 08/04/24 finasteride 5 mg tablet 5 mg PO DAILY 08/04/24 08/04/24 Previous Rx's ?Medication ?Instructions ?Recorded ciprofloxacin HCl 500 mg tablet 500 mg PO BID #14 tabs 08/04/24 (Cipro) Allergies Allergy/AdvReac Type Severity Reaction Status Date / Time No Known Drug Allergies Allergy Verified 06/19/24 12:32 PFSH PFS Social History Smoking Status: Never smoker Do you use any of these nicotine containing products: None Second hand tobacco smoke exposure: No How often do you have a drink containing alcohol: never How often do you have six or more drinks on one occasion: Never AUDIT-C Alcohol total score: 0 Non-prescribed substance use: denies use service: No Exam Narrative: Exam Narrative: Constitutional: Appears well-developed and well-nourished. Alert. Conversant but does have dementia so is a somewhat limited historian. Non toxic. HENT: Head: Atraumatic. Nose: Nose normal. Mouth/Throat: Oral mucosa is clear and moist. no trismus. Pharynx normal. Tonsils symmetric. No tonsillar enlargement, erythema, or exudate. Eyes: Conjunctivae normal. EOM normal. Pupils equal, round, and reactive to light. No scleral icterus. Neck: Normal range of motion. Neck supple. No tracheal deviation present. Cardiovascular: Normal rate, regular rhythm. No gallop. No friction rub. No murmur heard. Symmetric radial artery pulses Pulmonary/Chest: Effort normal. No stridor. No respiratory distress. No wheezes. No rales. No rhonchi . No tenderness. Abdominal: Soft. Bowel sounds normal. No distension. No mass. No tenderness. No rebound. No guarding. No CVA tenderness. Suprapubic catheter in place and is draining a small amount of clear but slightly yellow/pink tinged urine. No sediment or blood clots. : Patient feels little bit of itchy discomfort in the glans of his penis. On exam the penis is retracted into the mons pubis but when the patient stands up were able to visualize it. The glans looks normal. No erythema. No purulent discharge. Urethral meatus is normal. It has been a little bit wet, likely because of some urethral drainage from his bladder well the catheter was plugged today. No other rash on the penile head, shaft of the penis, or mons. Scrotum is normal. Musculoskeletal: RUE: Normal range of motion. No tenderness. No deformity LUE: Normal range of motion. No tenderness. No deformity RLE: Normal range of motion. No edema. No tenderness. No deformity LLE: Normal range of motion. No edema. No tenderness. No deformity Neurological: Alert and oriented to person, place, but not date. Normal strength. CN II-VII intact. No sensory deficit. GCS eye subscore is 4. GCS verbal subscore is 5. GCS motor subscore is 6. Normal coordination Skin: Skin is warm and dry. No rash noted. No pallor. Normal capillary refill. Psychiatric: Normal mood. Normal affect. Very polite and cooperative. Const: Vital Signs, click to edit/add: Vital Signs - 24 hr 12/31/24 17:24 Temperature 96.8 F L Pulse Rate [Pulse Oximeter] 83 Respiratory Rate 16 Blood Pressure [Ri ght Upper Arm] 177/91 H Pulse Oximetry 98 Oxygen Delivery Me thod Room Air Course Vital Signs Vital signs: Initial Vital Signs Temperature 96.8 F L 12/31/24 17:24 Temperature Source Temporal Artery Scan 12/31/24 17:24 Pulse Rate 83 12/31/24 17:24 Respiratory Rate 16 12/31/24 17:24 Blood Pressure 177/91 H 12/31/24 17:24 Blood Pressure Mean 119 H 12/31/24 17:24 Blood Pressure Position Supine 12/31/24 17:24 Pulse Oximetry 98 12/31/24 17:24 Oxygen Delivery Method Room Air 12/31/24 17:24 Vital Signs Temperature 96.8 F L 12/31/24 17:24 Pulse Rate 83 12/31/24 17:24 Respiratory Rate 16 12/31/24 17:24 Blood Pressure 177/91 H 12/31/24 17:24 Pulse Oximetry 98 12/31/24 17:24 Oxygen Delivery Method Room Air 12/31/24 17:24 Temperature 96.8 F L 12/31/24 17:24 Pulse Rate 83 12/31/24 17:24 Respiratory Rate 16 12/31/24 17:24 Blood Pressure 177/91 H 12/31/24 17:24 Pulse Oximetry 98 12/31/24 17:24 Oxygen Delivery Method Room Air 12/31/24 17:24 Medical Decision Making MDM Narrative Medical decision making narrative: A 9-year-old gentleman was a indwelling suprapubic catheter presents to the ER today because it became obstructed at his nursing care facility. The nursing care facility staff had removed his previous catheter but were unable to replace a new 1 so sent him here to the ER. Nurses were able to replace a new suprapubic catheter for this patient during the triage process and his catheter was already in place and draining urine before I saw him. He is not having any other symptoms such as abdominal pain, flank pain, fever, nausea vomiting, poor appetite, or any other symptoms of UTI. Nurses did obtain an send a urinalysis. It is abnormal with some red cells, but not many white cells. No clear evidence for UTI. Would hold off on antibiotics at this time, on last urine culture grows a clear pathogen. At this point I do not think he needs further workup with CT imaging. He and his daughter are comfortable and eager discharge back to his nursing care facility. Discussed precautions for return to the ER. We discussed pending urine culture results (we will contact them by phone- have to call his daughter, note that the patient) if it does grow pathogen. Lab Data Labs: Lab Results 12/31/24 Range/Units 17:35 Urine Color Shanda A (Yellow) Urine Appearance Cloudy A (Clear) Urine pH 6.0 (5.0-8.5) Ur Specific [place] 1.020 (1.000-1.030) Urine Protein 2+ A (Negative) Urine Glucose (UA) Negative (Negative) Urine Ketones Negative (Negative) Urine Blood 3+ A (Negative) Urine Nitrite Negative (Negative) Urine Bilirubin Negative (Negative) Urine Urobilinogen 0.2 (0.2-1.0) Ur Leukocyte Esterase 1+ A (Negative) Urine RBC 25-50 A (0-2) Urine WBC 2-5 (0-5) Ur Squamous Epith Cells None (None-Few) Urine Bacteria None (None) Discharge Plan Discharge Clinical Impression: Obstructed suprapubic catheter Patient Disposition: Home, Self-Care Condition: Stable Instructions: Mccrary Catheter Placement and Care (ED) Additional Instructions: As we discussed, I am glad we were able to get a new catheter in place today. Right now your vital signs and exam are reassuring. We have sent a sample of urine to the lab for a urine culture. If this culture grows bacteria, 1 of the doctors from the ER will contact you to start you on antibiotics. Please return to the ER right away if you have any concerns especially abdominal pain, fever, kidney pain, vomiting, or if you have any other problems. Prescriptions: No Action atorvastatin 10 mg tablet 10 mg PO DAILY finasteride 5 mg tablet 5 mg PO DAILY ciprofloxacin HCl [Cipro] 500 mg tablet 500 mg PO BID Qty: 14 0RF pantoprazole 20 mg tablet,delayed release (DR/EC) 20 mg PO DAILY metoprolol succinate 25 mg tablet extended release 24 hr 25 mg PO DAILY fluticasone furoate-vilanterol [Breo Ellipta] 100-25 mcg/dose blister with device 1 ea INHALATION DAILY amlodipine 2.5 mg tablet 2.5 mg PO DAILY albuterol sulfate 90 mcg/actuation HFA aerosol inhaler 1 - 2 puff INHALATION Q4H PRN (Reason: dyspnea) tamsulosin [Flomax] 0.4 mg capsule 0.4 mg PO DAILY Follow Up/Referrals: Alex Osorio MD [Primary Care Provider, Family Practice] Stand Alone Forms: [employer] Info Instructions
[2024-12-31 18:15] LABS: Appearance Urine Cloudy (Clear)
== END 2024-12-31 18:23 | disposition home or self-care (01) ==
LOC: ED 18:06
PROVIDERS: Emergency Provider Emergency Medicine; PCP Surgery
DX: T83.091A Other mechanical complication of indwelling urethral catheter, initial encounter (principal)
CPT/HCPCS: 51702; 81001; 87086; 99282; 99283

== ENCOUNTER 2025-03-29 13:56 | Emergency (ER) | payer MEDICARE, OTHER, SELFPAY ==
[2025-03-29 14:08] VITALS: BP 142/82; PULSE 99; RESP 20; TEMP 36.6; O2SAT 94; BMI 26.6
--- NOTE | 2025-03-29 14:56 | ED.MALEGU ---
HPI - Male Genitourinary General Date Seen: 03/29/25 Chief complaint: Urogenital Problems, Male Stated complaint: Leaking Catheter Time Seen by Provider: 03/29/25 14:56 Source: patient, family, RN notes reviewed and old records reviewed Mode of arrival: ambulatory Limitations: no limitations History of Present Illness HPI Narrative: Kyle is a very pleasant 89-year-old gentleman with a history of dementia, hypertension, suprapubic catheter who comes to the emergency room with his daughter for evaluation regarding leaking from the stoma. His daughter Sonya notes that most of the catheter changes have been done at the halfway. She does note in the past there have been some challenges even in the urologist's office. She was told on March 25 of the catheter was leaking. She checked over the weekend and sounds like she was reassured that everything was okay. Unfortunately she did come to find out that has been persistently leaking and that Kyle has had urine sitting around the catheter as well as causing his clothes to be wet. She does agree that the catheter has been draining. Kyle has not had any fevers or chills. She is also concerned about redness around the catheter insertion site. Sonya has been in contact with [place] [facility] going back and forth trying to get an appointment. Related Data Home Medications ?Medication ?Instructions ?Recorded ?Confirmed fluticasone furoate 100 1 ea inhalation DAILY 03/03/23 08/04/24 mcg-vilanterol 25 mcg/dose inhalation powder (Breo Ellipta) metoprolol succinate 25 mg 25 mg PO DAILY 03/03/23 08/04/24 tablet,extended release 24 hr pantoprazole 20 mg tablet,delayed 20 mg PO DAILY 03/03/23 08/04/24 release albuterol sulfate 90 mcg/actuation 1 - 2 puff inhalation Q4H PRN 01/06/24 08/04/24 aerosol inhaler dyspnea amlodipine 2.5 mg tablet 2.5 mg PO DAILY 01/06/24 08/04/24 tamsulosin 0.4 mg capsule (Flomax) 0.4 mg PO DAILY 06/19/24 08/04/24 atorvastatin 10 mg tablet 10 mg PO DAILY 08/04/24 08/04/24 finasteride 5 mg tablet 5 mg PO DAILY 08/04/24 08/04/24 Previous Rx's ?Medication ?Instructions ?Recorded ciprofloxacin HCl 500 mg tablet 500 mg PO BID #14 tabs 08/04/24 (Cipro) Allergies Allergy/AdvReac Type Severity Reaction Status Date / Time No Known Drug Allergies Allergy Verified 06/19/24 12:32 Review of Systems Status of ROS: Reports: 6 or more systems reviewed and unremarkable except as noted in History and below PFSH PFSH Social History Smoking Status: Never smoker Do you use any of these nicotine containing products: None Second hand tobacco smoke exposure: No How often do you have a drink containing alcohol: never How often do you have six or more drinks on one occasion: Never AUDIT-C Alcohol total score: 0 Non-prescribed substance use: denies use service: No Exam Narrative: Exam Narrative: Alert and oriented. Pleasant gentleman in no acute distress. No respiratory distress. Examination of the insertion site of suprapubic catheter shows a quite a large area of erythema. It is not warm to the touch. No significant drainage. Catheter appears to be in place although I do see some moisture around the insertion site. The leg bag shows clear urine. Abdomen is without any discomfort with palpation. Const: Vital Signs, click to edit/add: Vital Signs - 24 hr 03/29/25 14:08 Temperature 97.8 F Pulse Rate [Pulse Oximeter] 99 Respiratory Rate 20 Blood Pressure [Ri ght Upper Arm] 142/82 H Pulse Oximetry 94 Oxygen Delivery Me thod Room Air Documenting provider has reviewed patient's vital signs: yes Course Course ED Course: At this time I suspect there may be an anatomical reason for continued drainage. In the past there has been challenges with reinsert clark of the catheter. At this time we will deflate the balloon advanced the catheter reinflate the balloon and add 1 mL extra fluid. Will also cleansed the area around the catheter and place InterDry. Vital Signs Vital signs: Initial Vital Signs Temperature 97.8 F 03/29/25 14:08 Temperature Source Temporal Artery Scan 03/29/25 14:08 Pulse Rate 99 03/29/25 14:08 Respiratory Rate 20 03/29/25 14:08 Blood Pressure 142/82 H 03/29/25 14:08 Blood Pressure Mean 102 03/29/25 14:08 Blood Pressure Position Sitting 03/29/25 14:08 Pulse Oximetry 94 03/29/25 14:08 Oxygen Delivery Method Room Air 03/29/25 14:08 Vital Signs Temperature 97.8 F 03/29/25 14:08 Pulse Rate 99 03/29/25 14:08 Respiratory Rate 20 03/29/25 14:08 Blood Pressure 142/82 H 03/29/25 14:08 Pulse Oximetry 94 03/29/25 14:08 Oxygen Delivery Method Room Air 03/29/25 14:08 Temperature 97.8 F 03/29/25 14:08 Pulse Rate 99 03/29/25 14:08 Respiratory Rate 20 03/29/25 14:08 Blood Pressure 142/82 H 03/29/25 14:08 Pulse Oximetry 94 03/29/25 14:08 Oxygen Delivery Method Room Air 03/29/25 14:08 MDM - Male Genitourinary MDM Narrative Medical decision making narrative: 1. Suprapubic catheter dysfunction-nursing staff were able to deflate the balloon advanced catheter reinflate balloon and at this time catheter appears to be functioning. Recommend follow-up with [place] [facility] at earliest convenience. 2. Dermatitis-secondary to urine leakage. Need to keep this area as dry as possible. Will need to bathe daily and use water over this area with drying of the area by air or with the hair port drier. Monitor for worsening symptoms. At this time does not appear to be cellulitis or infection. 3. Disposition-home at this time. Seek medical attention for worsening symptoms. Medical Records Attestation: I reviewed the patient's medical records. Discharge Plan Discharge Clinical Impression: Irritant contact dermatitis due to urine Suprapubic catheter dysfunction Qualifiers: Encounter type: initial encounter Qualified Code(s): T83.010A - Breakdown (mechanical) of cystostomy catheter, initial encounter Patient Disposition: Home, Self-Care Condition: Improved Additional Instructions: Continue to monitor catheter. Do wonder if there some sort of anatomical defect that prevents internal sealing of the bladder with the catheter balloon. I do suggest follow-up with [place] [facility] for possible troubleshooting for a different catheter, larger catheter, alternative to what we have now. Will need to keep the area around the catheter dry. Following bathing air drying or blow drying to keep the skin dry. This will need to be done daily. InterDry should be used as well. If catheter continues to leak suggest rinsing the area with clean water. Avoid scrubbing the area as the skin is already quite irritated. I do not believe that this area is infected but rather irritated from the urine. Return for fever, worsening symptoms and as needed. Prescriptions: No Action atorvastatin 10 mg tablet 10 mg PO DAILY finasteride 5 mg tablet 5 mg PO DAILY ciprofloxacin HCl [Cipro] 500 mg tablet 500 mg PO BID Qty: 14 0RF pantoprazole 20 mg tablet,delayed release (DR/EC) 20 mg PO DAILY metoprolol succinate 25 mg tablet extended release 24 hr 25 mg PO DAILY fluticasone furoate-vilanterol [Breo Ellipta] 100-25 mcg/dose blister with device 1 ea INHALATION DAILY amlodipine 2.5 mg tablet 2.5 mg PO DAILY albuterol sulfate 90 mcg/actuation HFA aerosol inhaler 1 - 2 puff INHALATION Q4H PRN (Reason: dyspnea) tamsulosin [Flomax] 0.4 mg capsule 0.4 mg PO DAILY Follow Up/Referrals: Alex Osorio MD [Primary Care Provider, Family Practice] Stand Alone Forms: [employer] Info Instructions
--- OUTSIDE RECORDS SUMMARY | 2025-03-29 16:58 | XMS_ITS | Clinical Summary ---
Author Organization [facility] Address [address] [place] [id number] Care Team Providers Care Manager Learning Name Role Phone Junito Osorio MD Primary Care Provider [phone] Allergies No known active allergies Medications MedicationSigDispense QuantityRefillsLast FilledStart DateEnd DateStatus ZINC 50 MG TAB 1 orally twice weekly on Mondays and Avjtjza480ctive acetaminophen SR (TYLENOL ARTHRITIS) 650 mg Extended-Release tablet Max acetaminophen dose: 4000mg in 24 hrs. Takes 2 tablets in the am, 1 at noon and 2 tablets in mrkkxeasmo932/14/2019Active atorvastatin (LIPITOR) 10 mg tablet Indications:Hyperlipidemia with target LDL less than 160Take 1 Tablet (10 mg) by mouth once daily. 90 Tablet 5Active albuterol HFA (PRO-AIR; VENTOLIN; PROVENTIL) 90 mcg/actuation inhaler Indications:COPD mixed type (HC)Inhale 1-2 Puffs by mouth every 4 hours if needed for Shortness Of Breath. 6.7 g 5Active metoprolol succinate (Toprol XL) 25 mg Sustained-Release tablet Indications:SVT (supraventricular tachycardia) (HC)Take 1 Tablet (25 mg) by mouth once daily. 90 Tablet 5Active pantoprazole (PROTONIX) 20 mg tablet Indications:Chronic GERDTake 1 Tablet (20 mg) by mouth once daily. 90 Tablet 5Active umeclidinium (Incruse Ellipta) 62.5 mcg/actuation inhaler Indications:COPD mixed type (HC)Inhale 1 Puff by mouth once daily. 90 Each 5Active fluticasone furoate-vilanteroL (Breo Ellipta) 100-25 mcg/dose inhalation powder Indications:COPD mixed type (HC)Inhale 1 Puff by mouth once daily. 180 Each 5Active Active Problems ProblemNoted DateDiagnosed UteoVvdopf46/24/2025Moderate dementia without behavioral ytimsqcvrgf47/05/2025Urinary rckuyxocf87/05/2025LBBB (left bundle branch block)07/05/2021VT (supraventricular tachycardia)07/05/2021Mitral valve nuljrubfpjfih45/23/2022OPD mixed type05/12/2021bdominal aortic aneurysm (AAA) without ackifca6408/04/2018 Overview (08/05/2018): 08/04/18- Dr. Escoto 1. Mod IV sedation 2. US guided access bilateral [employer] 3. Abdominal aortogram 4. Repair of abdominal aortic aneurysm with 23 mm x 70 mm medtronic proximal cuff 5. Distal extension with 24 x 82 mm iliac stent 6. 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 Diverticulosis of colon (without mention of hemorrhage) Impotence of organic okjitq50Tobacco use /09/2022 Overview (04/07/2018): Quit smoking 01/2018 Encounters DateTypeDepartmentCare IbmnKpbableqahj10/12/2025Telephone [facility] [address] [place] [phone] Omari Isaac MD Follow Up (Catheter )02/05/2025Refill [facility] [address] [place] [address] Junito Osorio MD Refill Request (Fluticasone Furoate-vilanterol)01/15/2025 1:00 PM CDTAncillary Procedure [facility] [address] [place] [phone] 01/15/2025Travelfrom Last 3 Months Immunizations ImmunizationAdministration DatesNext DueCOVID-19 VACCINE SPIKEVAX (MODERNA 50MCG/0.5ML) 12YO+ PFS4COVID-19 vaccine ([employer]-[facility] Street[facility] 30mcg/0.3mL) MD ADELAV06/18/2020,05/28/2020Influenza A (H1N1), Gyjidioxubj87/26/2010Influenza A (H1N1), Inactivated (Age >=3 Years)03/01/2010,05/10/2009Influenza, High-dose Wgfsijqqptt97/02/2024,04/20/2016,03/25/2015Influenza, High-dose Quadrivalent Aevypbosmit06/18/2023,01/08/2022Influenza, IIV3 (Age 6-35 mos)12/23/2019, 05/13/2009Influenza, IIV3 (Age >=3 years)01/26/2014,04/10/2013,01/09/2012, 02/02/2010,05/13/2009,02/11/2008,03/12/2007,02/05/2006,04/12/2005,02/15/2004 Influenza, Inactivated AIIV4 (Age 65+ Years) Preserv Free02/06/2021,12/23/2019 Influenza, Inactivated IIV3 (Age 65+ Years) Preserv Free01/02/2024,01/07/2019, 02/06/2018,12/26/2016Pneumococcal Poly,23-Valent (Pneumovax)04/12/2005, 02/15/2004Pneumococcal conj 13-Valent (Prevnar 13)10/28/2014Td (Age >=7 Years) 02/15/2004Tdap10/21/2013Zoster (Shingrix-RZV, recombinant)09/10/2018,06/27/2018 Zoster (Zostavax-ZVL, live)11/07/2006 Family History Medical HistoryRelationNameCommentsGood HealthDaughter 3Good HealthDaughter 4 Heart DiseaseMotherStrokeMotherHypertensionSister 2OtherSister 3Addison's diseaseCancer-colonNo Family HistoryRelationNameStatusCommentsBrotherAlive Daughter 1AliveDaughter 2AliveDaughter 3Daughter 4FatherDeceased (Age 97)old age MotherDeceased (Age 79)miSister 1AliveSister 2Sister 3 Social History Tobacco UseTypesPacks/DayYears UsedDateSmoking Tobacco: FormerCigarettes0.330 01/24/1988 - 01/23/2018Smokeless Tobacco: Never Tobacco Cessation:Counseling Given: Yes Comments:quit 01/17/87 Alcohol UseStandard Drinks/WeekCommentsYes7 (1 standard drink = 0.6 oz pure alcohol)wine 1 glass (or cocktail) per dayPHQ-2AnswerDate RecordedPHQ-2 TOTAL KZNHE621Social ConnectionsAnswerDate RecordedDo you often feel lonely or isolated from those around you?lcohol UseAnswerDate RecordedHow often do you have a drink containing alcohol?How many drinks containing alcohol do you have on a typical day when you are drinking?0 12/21/2024How often do you have five or more drinks on one occasion? Financial Resource StrainAnswerDate RecordedDifficulty of Paying Living Expenses Difficulty of Paying Living ExpensesNot on file12/21/2024Food InsecurityAnswerDate RecordedDo you worry your food will run out before you are able to buy more?Transportation NeedsAnswerDate RecordedDoes lack of transportation keep you from medical appointments?Does lack of transportation keep you from work, meetings or getting things that you need?1 12/21/2024Housing StabilityAnswerDate RecordedWhat is your housing situation today?UtilitiesAnswerDate RecordedDo you have trouble paying for utilities (for example, heat, electricity, water, phone)?Sex and Gender InformationValueDate RecordedSex Assigned at BirthNot on fileLegal Sex Male04/28/2012 5:24 AM CSTGender IdentityNot on fileSexual OrientationNot on file Last Filed Vital Signs Vital SignReadingTime TakenCommentsBlood Ylwmqirg365/7509 2:57 PM CDT Olhbb444712/21/2024 2:57 PM HBANvmanityjqe28.7 ??C (98.1 ??F)08/05/2024 2:45 PM CDTRespiratory Ofgv371908/14/2024 3:30 PM CDTOxygen Lqoujngbdt88%12/21/2024 2:57 PM CDTInhaled Oxygen Concentration--Roeqob02.3 kg (192 lb 6.4 oz)12/21/2024 2:57 PM EZNMylcgo111.5 cm (5' 6.73)12/21/2024 2:57 PM CDTBody Mass Index30.38 12/21/2024 2:57 PM CDT Plan of Treatment DateTypeDepartmentCare Team (Latest Contact Info)Ulisplkyvfl94/07/2026 2:15 PM CDTOrders Only [facility] [address] [facility] [place] [address] [place], [place] 10/25/2025 2:00 PM CDTOffice Visit [facility] [address] [facility] [place] [phone] Eric Alvarez MD [address] [address] Health MaintenanceDue DateLast DoneCommentsRSV vaccine for adults or (1 - 1-dose 75+ series)2012Tetanus dzifuon77/09/932520/12/2013, 02/15/2004 COVID-19 vaccine series ( season)/, 01/30/2023, 01/08/2022, Additional history existsInfluenza Vaccine (#1)/05/2023, 01/02/2024, 02/06/2021, Additional history existsBMI (ht and wt on same day) for age 18+/11/2024, 08/05/2024, 12/02/2023, Additional history exists Depression screening for age 12+/11/2024, 12/04/2023, 12/04/2023, Additional history existsMedicare Wellness for age 65+/11/2024, 12/02/2023, 11/30/2022, Additional history existsPneumococcal series for age 50+ Oheenwoan62/16/2015, 04/12/2005, 02/15/2004Zoster (shingles) series for age 50+ Ewbgflsmy73/29/2019, 06/27/2018, 11/07/2006Hepatitis B series for 19+Aged OutNo longer eligible based on patient's age to complete this topic Medical Devices ImplantedTypeAreaManufacturerDevice IdentifierShelf Expiration DateModel / Serial / LotStent Aaa 24x82 Endurant 2 Limb Iliac - [id number] Implanted:Qty: 1 [facility] AortaMedtronic Aortic Bkwoovbiebaa31/21/2019 [id number]# / [id number] / Graft Stent Aaa Endurant 23x70 Implanted:Qty: 1 on 08/04/2018 [facility]: AortaMedtronic Aortic Vgptemkqdcml60/27/2020 [id number] / [id number] / Procedures Procedure NamePriorityDate/TimeAssociated DiagnosisCommentsECHO TTE COMPLETE W LKWJYNLWBktpuwy89/03/2025 1:37 PM CDT Aortic valve stenosis, etiology of cardiac valve disease unspecified from Last 3 Months Results * ECHO TTE COMPLETE W CONTRAST (01/15/2025 1:37 PM CDT)ComponentValueRef Range Test MethodAnalysis TimePerformed AtPathologist SignatureAORTIC VALVE MEAN PG 23mmHgEJECTION ZZPBTHEN77%LVEDD3.5cmEJECTION GFOHNGWS47 - 65%Anatomical Region LateralityModalityUltrasoundSpecimen (Source)Anatomical Location / Laterality Collection Method / VolumeCollection TimeReceived Time01/15/2025 12:59 PM CDT Narrative 01/15/2025 1:57 PM CDT ECHOCARDIOGRAM DELVIS LLANES ? Accession#: ?? [id number] : ?1935 89 years Study Date: ?? 01/15/2025 12:59:55 PM Gender: M ?BP: ? 135/75 mmHg Height: 168.00 cm ?BSA: ?1.97 m? Weight: 87.00 kg ? Tech: ? MKE ? Referring MD: JUNITO OSORIO Site: ? [facility] Reading Location: Mobile-OP Patient Location: Outpatient. Procedure: 2D w/ Contrast, Color Doppler and Spectral Doppler. Indication for study: Aortic valve stenosis, etiology of cardiac valve disease unspecified Cardiac Rhythm: Regular.Study quality: Fair. Final Impressions: 1. Normal LV size, normal wall thickness, normal function with an estimated EF of 60 - 65%. 2. Right ventricular cavity size is normal, global systolic RV function is normal. 3. The aortic valve is sclerotic, mild stenosis and no regurgitation. 4. Echo contrast was administered to enhance visualization of all left ventricular segments. 5. The ascending aorta is normal for age/sex/bsa, diameter of 4.2 cm (upper limit of normal for age, sex, and BSA is 4.3 cm*), Height Index 2.50. Chamber Sizes and Function Normal left ventricular size, normal wall thickness, normal global systolic function with an estimated EF of 60 - 65%. No resting regional wall motion abnormality visualized. Left atrial size is normal. Left atrial pressure is normal. Right ventricular cavity size is normal, global systolic RV function is normal. The right atrium is not well visualized. The pulmonary artery is of normal size and origin. The sinus of Valsalva is normal sized. The ascending aorta is normal for age/sex/bsa. Valves, RV Pressures and Diastolic Function The aortic valve is sclerotic, mild stenosis and no regurgitation. The mitral valve is normal in structure, trace mitral regurgitation. Indeterminate pattern of LV diastolic filling. The tricuspid valve is normal in structure, mild tricuspid regurgitation. The pulmonic valve is normal. Trace pulmonary regurgitation. Masses, Effusion, Shunts There is no pericardial effusion. The inferior vena cava is normal sized, respiratory size variation greater than 50%. No left to right shunting was detected by limited color flow Doppler interrogation of the interatrial septum. MEASUREMENTS AND CALCULATIONS 2-D Measurements and LV Function: LVID (d) ? 3.4 cm ? LV FS% (2D) ?? 29 % LVID (s) ? 2.4 cm ? LVOT diameter 2.0 cm IVS (d) ?0.8 cm ? HR ?75 bpm LVPW (d) ? 1.0 cm ? LA Vol index ??30 ml/m2 Ao Sinus ? 3.4 cm Ao Sinus ULN 4.2 cm * Asc Ao ? 4.2 cm Asc Ao ULN ?? 4.3 cm * LA ? 4.0 cm * Input age outside of range, reported values correspond to Age = 80 Diastology: Mitral ?Tissue Doppler E Peak 0.7 m/s ??e', Septum ? 0.06 m/s A Peak 1.3 m/s ??e', Lateral ?0.05 m/s E/A ?0.6 ?E/e' Average ?? 12.75 DT ? 103 msec Aortic Valve: Vmax ? 2.9 m/s ??GERARDO (V) ?? 1.77 cm? VTI ?0.67 m ?? GERARDO (I) ?? 1.94 cm? LVOT V max 1.6 m/s ??Max PG ?33 mmHg LVOT VTI ?? 0.42 m ?? Mean PG ?? 23 mmHg SV ? 130 ml ?? Dim Index 0.62 SV index ?? 66 ml/m? CO ?9.8 l/min ?CI ?5.0 l/min/m? Mitral Valve: MVA ?7.4 cm? MV P 1/2 30 msec Tricuspid Valve and estimated PA pressures: TAPSE 2.1 cm Contrast documentation: 3 mL ml diluted Definity, lot #[id number], [facility]# [id number] was administered peripherally to enhance visualization of all left ventricular segments. . This study was interpreted by an [facility] accredited facility. ??Final ?? Procedure Note Danny Blackwell MD - 01/15/2025 ECHOCARDIOGRAM DELVIS LLANES : 1935 89 years Study Date: 01/15/2025 12:59:55 PM Gender: M BP: 135/75 mmHg Height: 168.00 cm BSA: 1.97 m? Weight: 87.00 kg Tech: NARCISA Referring MD: JUNITO OSORIO Site: [facility] Reading Location: Mobile-OP Patient Location: Outpatient. Procedure: 2D w/ Contrast, Color Doppler and Spectral Doppler. Indication for study: Aortic valve stenosis, etiology of cardiac valvedisease unspecified Cardiac Rhythm: Regular.Study quality: Fair. Final Impressions: 1. Normal LV size, normal wall thickness, normal function with anestimated EF of 60 - 65%. 2. Right ventricular cavity size is normal, global systolic RV functionis normal. 3. The aortic valve is sclerotic, mild stenosis and no regurgitation. 4. Echo contrast was administered to enhance visualization of all left ventricular segments. 5. The ascending aorta is normal for age/sex/bsa, diameter of 4.2 cm(upper limit of normal for age, sex, and BSA is 4.3 cm*), Height Index2.50. Chamber Sizes and Function Normal left ventricular size, normal wall thickness, normal globalsystolic function with an estimated EF of 60 - 65%. No resting regionalwall motion abnormality visualized. Left atrial size is normal. Leftatrial pressure is normal. Right ventricular cavity size is normal, globalsystolic RV function is normal. The right atrium is not well visualized.The pulmonary artery is of normal size and origin. The sinus of Valsalvais normal sized. The ascending aorta is normal for age/sex/bsa. Valves, RV Pressures and Diastolic Function The aortic valve is sclerotic, mild stenosis and no regurgitation. Themitral valve is normal in structure, trace mitral regurgitation.Indeterminate pattern of LV diastolic filling. The tricuspid valve isnormal in structure, mild tricuspid regurgitation. The pulmonic valve isnormal. Trace pulmonary regurgitation. Masses, Effusion, Shunts There is no pericardial effusion. The inferior vena cava is normal sized, respiratory size variation greater than 50%. No left to right shunting was detected by limited color flow Doppler interrogation of the interatrialseptum. MEASUREMENTS AND CALCULATIONS 2-D Measurements and LV Function: LVID (d) 3.4 cm LV FS% (2D) 29% LVID (s) 2.4 cm LVOT diameter2.0 cm IVS (d) 0.8 cm HR 75bpm LVPW (d) 1.0 cm LA Vol index 30ml/m2 Ao Sinus 3.4 cm Ao Sinus ULN 4.2 cm * Asc Ao 4.2 cm Asc Ao ULN 4.3 cm * LA 4.0 cm * Input age outside of range, reported values correspond to Age = 82 Diastology: Mitral Tissue Doppler E Peak 0.7 m/s e', Septum 0.06 m/s A Peak 1.3 m/s e', Lateral 0.05 m/s E/A 0.6 E/e' Average 12.75 DT 103 msec Aortic Valve: Vmax 2.9 m/s GERARDO (V) 1.77 cm? VTI 0.67 m GERARDO (I) 1.94 cm? LVOT V max 1.6 m/s Max PG 33 mmHg LVOT VTI 0.42 m Mean PG 23 mmHg SV 130 ml Dim Index 0.62 SV index 66 ml/m? CO 9.8 l/min CI 5.0 l/min/m? Mitral Valve: MVA 7.4 cm? MV P 1/2 30 msec Tricuspid Valve and estimated PA pressures: TAPSE 2.1 cm Contrast documentation: 3 mL ml diluted Definity, lot #[id number], [facility]#[id number] was administered peripherally to enhance visualization of allleft ventricular segments. . This study was interpreted by an [facility] accredited facility. Final Authorizing ProviderResult TypeResult StatusKyle Mp Osorio MDECHO ORDFinal Result from Last 3 Months Insurance [place] [id number] Advance Directives TypeDate RecordedPatient RepresentativeExplanationPOLST06/22/2024Healthcare Directive12/05/2023 1:52 PM * Full Code (Latest Code Status on File) Date ActivatedDate InactivatedComments08/04/2018 5:57 AM08/05/2018 4:13 PM Care Teams Team MemberRelationshipSpecialtyStart DateEnd Date Junito Osorio MD [address] [place] [address] PCP - [facility]06/06/20
== END 2025-03-29 15:52 | disposition home or self-care (01) ==
PROVIDERS: Emergency Provider Family Medicine; PCP Surgery
DX: T83.091A Other mechanical complication of indwelling urethral catheter, initial encounter (principal); L24.A2 Irritant contact dermatitis due to fecal, urinary or dual incontinence
CPT/HCPCS: 99283